=== PATIENT | male | born 1955 | race Caucasian/White ===

== ENCOUNTER 2018-01-10 14:00 | Inpatient (IN) ==
--- NOTE | 2018-01-10 15:12 | ED ---
HPI General Chief complaint: Psychiatric Symptoms Stated complaint: Psych Eval / VCSO Time Seen by Provider: 01/10/18 14:26 Source: patient, family and RN notes reviewed Mode of arrival: ambulatory Limitations: no limitations History of Present Illness HPI narrative: 62-year-old male presents to the emergency department under [place] act by local police. According the [place], the patient has been having delusional thoughts, talking to God. He also has apparently been refusing treatment for his swollen legs and not allowing his daughter to let him have care. He fell approximately 6 times yesterday and laid on the ground for approximately 2 hours until his daughter got home. According the [place] act, he defecated on the ground today as well. He also has been walking around the house without any pants or underwear on. The patient tells me he did fall approximately 5 times yesterday. He states that his knee gave out. He denies any dizziness, chest pain, shortness of breath before the falls. Patient states this is new for him. He is alert and oriented to person, place, time. He states that he prays to God, but is not delusional. Patient states that he went to his "heart doctor" yesterday and had a checkup. Patient states that he was on Lasix previously, but his daughter took him off of it he takes ibuprofen which "helps me more". He denies any fevers. He denies any chest pain shortness of breath. He states that his abdomen is distended, but not painful. He states this is new in the last few days. He reports chronic edema of the bilateral lower extremities. Moderate severity. Location: lower extremity Radiation: non-radiation Severity: moderate Quality: aching Pain Consistency: constant Relieving factors: none Exacerbating factors: none Related Data Previous Rx's Medication Instructions Recorded sulfamethoxazole-trimethoprim 2 tab PO Q12H 7 Days #28 tab 01/11/18 [Bactrim DS] Allergies Allergy/AdvReac Type Severity Reaction Status Date / Time Penicillins Allergy Anaphylaxis Verified 01/10/18 14:18 codeine AdvReac Vomiting Verified 01/10/18 14:18 Review of Systems ROS: all other systems reviewed are negative PMFSH Medical History Medical History Patient denies medical problems (Acute) Surgical History Surgical History No history of previous surgery (Acute) Social History Social History Substance History: No History of Abuse Second Hand Smoke Exposure: No Smoking Status: Never smoker Tobacco Type: Cigarettes How Often Do You Have a Drink Containing Alcohol: Never Recent Travel in [place] within the Last 8 Weeks: No Recent Out of Country Travel within the Last 8 Weeks: No Exam Narrative Exam Narrative: GENERAL: Well-nourished, well-developed male patient, afebrile. SKIN: Focused skin assessment warm/dry. Patient has erythema and scabs noted to the left lower extremity. HEAD: Normocephalic. Atraumatic. EYES: No scleral icterus. No injection or drainage. NECK: Supple, trachea midline. No JVD or lymphadenopathy. CARDIOVASCULAR: Regular rate and rhythm without murmurs, gallops, or rubs. Bilateral radial and pedal pulses 2+ RESPIRATORY: Breath sounds equal bilaterally. No accessory muscle use. Lung sounds are clear to auscultation. GASTROINTESTINAL: Abdomen non-tender, distended. MUSCULOSKELETAL: No cyanosis. 3+ bilateral lower, pitting edema. BACK: Nontender without obvious deformity. No CVA tenderness. PSYCHIATRIC: No delusional thought processes. No hallucinations. Course Initial Documented Vital Signs Temperature 97.0 F L 01/10/18 14:12 Pulse Rate 95 H 01/10/18 14:12 Respiratory Rate 18 01/10/18 14:12 Blood Pressure 177/84 H 01/10/18 14:12 Pulse Oximetry 98 01/10/18 14:12 Last Documented Vital Signs Temperature 98.8 F 01/10/18 15:08 Pulse Rate 88 01/10/18 20:01 Respiratory Rate 17 01/10/18 20:01 Blood Pressure 158/86 H 01/10/18 20:01 Pulse Oximetry 97 01/10/18 20:01 Medical Decision Making TRACE Attestation TRACE supervised visit: Yes Attestation: I, Dr. Valencia, have reviewed the advance practice practitioner's documentation and am in agreement, met with the patient face to face, made the diagnosis, and the medical decision making was done by me. *My assessment and Findings: Patient seen and examined by me in addition to Trixie Edge, examined by me in about 10:10 AM. The Burton act has been lifted patient has been discussed with Dr. Hoover. The patient is not a threat to himself or to others. He is alert and awake and oriented for me, I think he has the mental wherewithal to refuse treatment as he seems fit. He does have some weeping wounds of the lower extremities but no fluid collection. Think it is reasonable to put him on an ambulatory antibiotic. After discussion with the patient he is alert and awake and oriented, I have not witnessed any psychiatric symptoms myself. I have asked case management to get involved, DCF is already been contacted for this patient. I spoke with the daughter who is adamant that the patient is a threat to others, he is not taking care of himself is defecating in the room and is refusing to take all of his medications. Is very unclear to me if this is a psychiatric issue or a social issue. I had a discussion with Dr. Hoover, he is decided to keep the patient under [place] act and has asked me to spread his previous lift documentation. I think this is appropriate for this patient based on the daughter's history. The patient does have a cellulitis of bilateral lower extremities which I think to be treated with p.o. Bactrim. The patient will be admitted to medical psych under Dr. Hoover. Further medical management the patient's chronic cellulitis(greater than 4 months according to him) will be deferred to the medical team. MDM Narrative Medical decision making narrative: 62-year-old male presents to the emergency department under [place] act by local police. IV access obtained. CBC, CMP, TSH , magnesium, lipase, BNP, CK, alcohol level, urine drug screen, are ordered and pending. CT of the brain, cervical spine, abdomen/pelvis are ordered and pending. Chest x-ray is ordered and pending. Venous Doppler ultrasound of bilateral lower extremities is ordered and pending peer CBC shows no acute abnormality. CMP shows no acute abnormality. TSH is 5.820. Magnesium is 2.1. Lipase is 79. BNP is 609. CK is 159. Alcohol level is less than 3. UDS is pending. UA is negative for acute infection. Chest x-ray is negative. CT of the brain is negative. CT of the cervical spine shows moderate to severe degenerative changes are noted without evidence for acute fracture. CT abdomen/pelvis shows cirrhosis and portal hypertension, extensive atherosclerosis. US is negative for DVT. Patient states he has had cellulitis to lower extremity for 4 months and it is much improved. He will be started on Bactrim. He is medically cleared for psychiatric screening and disposition. Medical Screen Exam Complete: Yes Emergency Medical Condition: Yes Differential Diagnosis Differential Diagnosis: electrolyte abnormality vs. cellulitis vs. CHF vs. intracranial abnormality vs. dementia vs. psychiatric illness Lab Data Result diagrams: 01/10/18 14:30 01/10/18 14:30 Lab Results 01/10/18 01/10/18 01/10/18 Range/Units 14:30 14:30 14:30 WBC 5.7 (4.0-11.0) th/mm3 RBC 3.92 L (4.50-5.90) mil/mm3 Hgb 12.2 L (13.0-17.0) gm/dL Hct 38.4 L (39.0-51.0) % MCV 97.9 (80.0-100.0) fL MCH 31.2 (27.0-34.0) pg MCHC 31.9 L (32.0-36.0) % RDW 22.3 H (11.6-17.2) % Plt Count 170 (150-450) th/mm3 MPV 8.2 (7.0-11.0) fL Neut % (Auto) 71.9 H (16.0-70.0) % Lymph % (Auto) 15.6 (9.0-44.0) % [place] % (Auto) 8.4 H (0.0-8.0) % Eos % (Auto) 3.0 (0.0-4.0) % Baso % (Auto) 1.1 (0.0-2.0) % Neut # (Auto) 4.1 (1.8-7.7) th/mm3 Lymph # (Auto) 0.9 L (1.0-4.8) th/mm3 [place] # (Auto) 0.5 (0.0-0.9) th/mm3 Eos # (Auto) 0.2 (0.0-0.4) th/mm3 Baso # (Auto) 0.1 (0.0-0.2) th/mm3 WBC Differential . Differential Comment Auto diff final PT (9.8-11.6) sec INR Ratio APTT (24.3-30.1) sec Sodium 139 (136-145) meq/L Potassium 3.9 (3.5-5.1) meq/L Chloride 105 (98-107) meq/L Carbon Dioxide 23.5 (21.0-32.0) meq/L Anion Gap 11 (5-15) meq/L BUN 23 H (7-18) mg/dL Creatinine 1.13 (0.60-1.30) mg/dL Estimated GFR 65 L (>89) mL/min Random Glucose 124 H (74-106) mg/dL Calcium 8.3 L (8.5-10.1) mg/dL Magnesium 2.1 (1.5-2.5) mg/dL Total Bilirubin 0.6 (0.2-1.0) mg/dL AST 23 (15-37) U/L ALT 23 (12-78) U/L Alkaline Phosphatase 137 H (45-117) U/L Total Creatine Kinase 159 (39-308) U/L B-Natriuretic Peptide 609 H (0-100) pg/mL Total Protein 8.8 H (6.4-8.2) g/dL Albumin 2.6 L (3.4-5.0) g/dL Lipase 79 (73-393) U/L TSH 5.820 H (0.358-3.740) uIU/mL Urine Color (Yellw/Straw) Urine Clarity (Clear) Urine pH (5.0-8.5) Ur Specific [place] (1.002-1.035) Urine Protein (Neg-Trace) mg/dL Urine Glucose (UA) (Negative) mg/dL Urine Ketones (Negative) mg/dL Urine Occult Blood (Negative) Urine Nitrate (Negative) Urine Bilirubin (Negative) Urine Urobilinogen (Less than 2) mg/dL Ur Leukocyte Esterase (Negative) Urine RBC (0-3) /hpf Urine WBC (0-5) /hpf Ur Squamous Epith Cells (0-5) /hpf Hyaline Casts (0-3) /lpf Urine Mucus (Occasional) /lpf Micro UA Comment Ur Microscopic Review Urine Culture Comments Urine Opiates Screen (Neg) Ur Barbiturates Screen (Neg) Ur Amphetamines Screen (Neg) U Benzodiazepines Scrn (Neg) Urine Cocaine Screen (Neg) U Cannabinoids Screen (Neg) Serum Alcohol Less than 3 (0-5) mg/dL 01/10/18 01/10/18 01/10/18 Range/Units 14:30 18:19 18:19 WBC (4.0-11.0) th/mm3 RBC (4.50-5.90) mil/mm3 Hgb (13.0-17.0) gm/dL Hct (39.0-51.0) % MCV (80.0-100.0) fL MCH (27.0-34.0) pg MCHC (32.0-36.0) % RDW (11.6-17.2) % Plt Count (150-450) th/mm3 MPV (7.0-11.0) fL Neut % (Auto) (16.0-70.0) % Lymph % (Auto) (9.0-44.0) % [place] % (Auto) (0.0-8.0) % Eos % (Auto) (0.0-4.0) % Baso % (Auto) (0.0-2.0) % Neut # (Auto) (1.8-7.7) th/mm3 Lymph # (Auto) (1.0-4.8) th/mm3 [place] # (Auto) (0.0-0.9) th/mm3 Eos # (Auto) (0.0-0.4) th/mm3 Baso # (Auto) (0.0-0.2) th/mm3 WBC Differential Differential Comment PT 11.4 (9.8-11.6) sec INR 1.1 Ratio APTT 28.7 (24.3-30.1) sec Sodium (136-145) meq/L Potassium (3.5-5.1) meq/L Chloride (98-107) meq/L Carbon Dioxide (21.0-32.0) meq/L Anion Gap (5-15) meq/L BUN (7-18) mg/dL Creatinine (0.60-1.30) mg/dL Estimated GFR (>89) mL/min Random Glucose (74-106) mg/dL Calcium (8.5-10.1) mg/dL Magnesium (1.5-2.5) mg/dL Total Bilirubin (0.2-1.0) mg/dL AST (15-37) U/L ALT (12-78) U/L Alkaline Phosphatase (45-117) U/L Total Creatine Kinase (39-308) U/L B-Natriuretic Peptide (0-100) pg/mL Total Protein (6.4-8.2) g/dL Albumin (3.4-5.0) g/dL Lipase (73-393) U/L TSH (0.358-3.740) uIU/mL Urine Color Yellow (Yellw/Straw) Urine Clarity Hazy H (Clear) Urine pH 5.0 (5.0-8.5) Ur Specific [place] 1.017 (1.002-1.035) Urine Protein 30 H (Neg-Trace) mg/dL Urine Glucose (UA) Negative (Negative) mg/dL Urine Ketones Trace H (Negative) mg/dL Urine Occult Blood Negative (Negative) Urine Nitrate Negative (Negative) Urine Bilirubin Negative (Negative) Urine Urobilinogen Less than 2 (Less than 2) mg/dL Ur Leukocyte Esterase Negative (Negative) Urine RBC Less than 1 (0-3) /hpf Urine WBC 2 (0-5) /hpf Ur Squamous Epith Cells 1 (0-5) /hpf Hyaline Casts 28 (0-3) /lpf Urine Mucus Few H (Occasional) /lpf Micro UA Comment Culture not ind Ur Microscopic Review Not Reportable Urine Culture Comments Culture not ind Urine Opiates Screen Neg (Neg) Ur Barbiturates Screen Neg (Neg) Ur Amphetamines Screen Neg (Neg) U Benzodiazepines Scrn Neg (Neg) Urine Cocaine Screen Neg (Neg) U Cannabinoids Screen Neg (Neg) Serum Alcohol (0-5) mg/dL Imaging Data Radiologist's impression: Cervical Spine CT 01/10/18 14:27 CONCLUSION: 1. Moderate to severe degenerative changes are noted without evidence for acute fracture. Head CT 01/10/18 14:27 CONCLUSION: 1. Negative CT Head non contrast. . Abdomen/Pelvis CT 01/10/18 14:55 CONCLUSION: 1. Cirrhosis and portal hypertension. 2. Extensive atherosclerosis. Chest X-Ray 01/10/18 14:55 CONCLUSION: Negative examination. Venous Doppler Study 01/10/18 15:13 CONCLUSION: 1. The study is negative for bilateral lower extremity deep venous thrombosis. Discharge Plan Discharge Disposition Patient Disposition: 30 Still Patient Discharge Details Diagnosis: Medical clearance for psychiatric admission, Cellulitis Physicians Team ED Provider: Mason Valencia ED Midlevel Provider: Trixie Edge Primary Care Provider: UNKNOWN, Rxs /Orders / Referrals /Forms Prescriptions: New sulfamethoxazole-trimethoprim [Bactrim DS] 800-160 mg tablet 2 tab PO Q12H 7 Days Qty: 28 RF: 0 Discharge Interventions Interventions: Discharge Planning - Case Management Last Done: 01/10/18 16:10 Status ED Status: Admitted Patient
[2018-01-10 15:18] LABS: Baso # (Auto) 0.1 th/mm3 (0.0-0.2); Baso % (Auto) 1.1 % (0.0-2.0); Eos # (Auto) 0.2 th/mm3 (0.0-0.4); Hematocrit 38.4 % (39.0-51.0); Hemoglobin 12.2 gm/dL (13.0-17.0); Lymph # (Auto) 0.9 th/mm3 (1.0-4.8); Lymph % (Auto) 15.6 % (9.0-44.0); Mean Corpuscular HGB Conc 31.9 % (32.0-36.0); Mean Corpuscular Hemoglobin 31.2 pg (27.0-34.0); Mean Corpuscular Volume 97.9 fL (80.0-100.0); Mean Platelet Volume 8.2 fL (7.0-11.0); Mono # (Auto) 0.5 th/mm3 (0.0-0.9); Mono % (Auto) 8.4 % (0.0-8.0); Neut # (Auto) 4.1 th/mm3 (1.8-7.7); Neut % (Auto) 71.9 % (16.0-70.0); Platelet Count 170 th/mm3 (150-450); Red Blood Count 3.92 mil/mm3 (4.50-5.90); Red Cell Distribution Width 22.3 % (11.6-17.2); White Blood Count 5.7 th/mm3 (4.0-11.0)
[2018-01-10 15:28] LABS: Activated Partial Thrombo Time 28.7 sec (24.3-30.1); INR 1.1 Ratio; Prothrombin Time 11.4 sec (9.8-11.6)
--- NOTE | 2018-01-10 15:33 | XR ---
EXAM DATE: 01/10/2018 3:14 PM EDT AGE/SEX: 62 years / Male INDICATIONS: Altered mental status with bilateral leg swelling. CLINICAL DATA: This is the patient's initial encounter. Patient reports that signs and symptoms have been present for 2 days and indicates a pain score of 0/10. MEDICAL/SURGICAL HISTORY: None. None. COMPARISON: No prior exams available for comparison. FINDINGS: A single AP view of the chest demonstrates the lungs to be symmetrically aerated without evidence of mass, infiltrate or effusion. The cardiomediastinal contours are unremarkable. Osseous structures a re intact. CONCLUSION: Negative examination. Electronically signed by: Chandu Medina MD 01/10/2018 3:32 PM EDT
[2018-01-10 15:40] LABS: Alanine Aminotransferase 23 U/L (12-78); Albumin 2.6 g/dL (3.4-5.0); Anion Gap 11 meq/L (5-15); Aspartate Aminotransferase 23 U/L (15-37); Blood Urea Nitrogen 23 mg/dL (7-18); Calcium 8.3 mg/dL (8.5-10.1); Carbon Dioxide 23.5 meq/L (21.0-32.0); Chloride 105 meq/L (98-107); Glomerular Filtration Rate 65 mL/min (>89); Glucose,Random 124 mg/dL (74-106); Lipase 79 U/L (73-393); Magnesium 2.1 mg/dL (1.5-2.5); Potassium 3.9 meq/L (3.5-5.1); Sodium 139 meq/L (136-145)
[2018-01-10 15:49] LABS: Alkaline Phosphatase 137 U/L (45-117); Creatine Kinase 159 U/L (39-308); Total Protein 8.8 g/dL (6.4-8.2)
--- NOTE | 2018-01-10 15:54 | CT ---
EXAM DATE: 01/10/2018 3:49 PM EDT AGE/SEX: 62 years / Male INDICATIONS: Trauma; fall. CLINICAL DATA: This is the patient's initial encounter. Patient reports that signs and symptoms have been present for 1 day and indicates a pain score of Nonresponsive. MEDICAL/SURGICAL HISTORY: Non-responsive. Non-responsive. RADIATION DOSE: 15.43 CTDI (mGy) COMPARISON: No prior exams available for comparison. TECHNIQUE: Contiguous axial images were obtained using helical multirow detector technique. The vol umetric data was post-processed with multiplanar reconstruction in oblique axial, sagittal, and coron al planes. Using automated exposure control and adjustment of the mA and/or kV according to patient s ize, radiation dose was kept as low as reasonably achievable to obtain optimal diagnostic quality hank ges. DICOM format image data is available electronically for review and comparison. FINDINGS: The odontoid process is intact. There is uncovertebral hypertrophy at C5-6 and C6-7 with severe disc space narrowing, endplate sclerosis and osteophytosis at these levels. There are no compression defor mities. Vertebral artery and carotid artery calcifications are noted. A moderate central disc protrus ion at C3-4 is noted with mild canal narrowing. C4-5-1 broad-based central disc protrusion is seen wi th mild canal narrowing. At C5-6-1 diffuse disc osteophyte complex is noted with moderate to severe c anal stenosis. There is severe bilateral foraminal narrowing secondary to uncovertebral hypertrophy, and I believe there is mass effect on the cord. At C6-7 there is severe bilateral foraminal stenosis. CONCLUSION: 1. Moderate to severe degenerative changes are noted without evidence for acute fracture. Electronically signed by: Chandu Medina MD 01/10/2018 3:53 PM EDT
--- NOTE | 2018-01-10 15:56 | CT ---
EXAM DATE: 01/10/2018 3:45 PM EDT AGE/SEX: 62 years / Male INDICATIONS: Trauma; fall. CLINICAL DATA: This is the patient's initial encounter. Patient reports that signs and symptoms have been present for 1 day and indicates a pain score of Nonresponsive. MEDICAL/SURGICAL HISTORY: Non-responsive. Non-responsive. RADIATION DOSE: 56.35 CTDI (mGy) COMPARISON: No prior exams available for comparison. TECHNIQUE: CT of the head without contrast. Using automated exposure control and adjustment of the mA and/or kV according to patient size, radiation dose was kept as low as reasonably achievable to ob tain optimal diagnostic quality images. DICOM format image data is available electronically for revi ew and comparison. FINDINGS: Cerebrum: The ventricles are normal for age. No evidence of midline shift, mass lesion, hemorrhage or acute infarction. No extraaxial fluid collections are seen. Posterior Fossa: The cerebellum and brainstem are intact. The 4th ventricle is midline. The cerebe llopontine angle is unremarkable. Extracranial: The visualized portion of the orbits is intact. Skull: The calvaria is intact. No evidence of skull fracture. CONCLUSION: 1. Negative CT Head non contrast. . Electronically signed by: Chandu Medina MD 01/10/2018 3:55 PM EDT
--- NOTE | 2018-01-10 15:56 | CT ---
EXAM DATE: 01/10/2018 3:47 PM EDT AGE/SEX: 62 years / Male INDICATIONS: Trauma; fall. CLINICAL DATA: This is the patient's initial encounter. Patient reports that signs and symptoms have been present for 1 day and indicates a pain score of Nonresponsive. MEDICAL/SURGICAL HISTORY: Non-responsive. Non-responsive. RADIATION DOSE: 9.43 CTDI (mGy) COMPARISON: No prior exams available for comparison. TECHNIQUE: Multiple contiguous axial images were obtained through the abdomen. Images were obtained using multiple row detector helical technique. Using automated exposure control and adjustment of the mA and/or kV according to patient size, radiation dose was kept as low as reasonably achievable to o btain optimal diagnostic quality images. DICOM format image data is available electronically for rev iew and comparison. FINDINGS: No pleural effusions are seen. There is a large amount of ascites throughout the abdomen and pelvis. There is diffuse body wall edema. Extensive atherosclerotic calcifications are seen. Urinary bladder is unremarkable. No evidence for bowel obstruction. There is no adenopathy. Kidneys, adrenals, spleen , pancreas, stomach unremarkable. Cirrhotic liver is noted with nodular contour, and cholelithiasis i s present. There is no aneurysm. Lung bases are clear. Degenerative changes of the spine are noted. CONCLUSION: 1. Cirrhosis and portal hypertension. 2. Extensive atherosclerosis. Electronically signed by: Chandu Medina MD 01/10/2018 3:54 PM EDT
--- NOTE | 2018-01-10 16:55 | US ---
EXAM DATE: 01/10/2018 4:52 PM EDT AGE/SEX: 62 years / Male INDICATIONS: Bilateral leg swelling. CLINICAL DATA: This is the patient's initial encounter. Patient reports that signs and symptoms have been present for 1 day and indicates a pain score of 0/10. MEDICAL/SURGICAL HISTORY: . Bilateral leg edema. None. COMPARISON: No prior exams available for comparison. TECHNIQUE: Venous ultrasound of both lower extremities was performed from the inguinal ligament to t he proximal calf. Real-time, color Doppler and spectral tracing, compression and augmentation techni ques were used. FINDINGS: Right Leg: Normal compression of the deep venous system from the inguinal region to the proximal nafisa f. No echogenic clot is seen. Normal response of the venous system to augmentation and respiration. Left Leg: Normal compression of the deep venous system from the inguinal region to the proximal calf . No echogenic clot is seen. Normal response of the venous system to augmentation and respiration. Other: None. CONCLUSION: 1. The study is negative for bilateral lower extremity deep venous thrombosis. Electronically signed by: Chandu Medina MD 01/10/2018 4:53 PM EDT
[2018-01-10 18:54] LABS: Bilirubin,Urine Negative (Negative); Clarity,Urine Hazy (Clear); Color,Urine Yellow (Yellw/Straw); Glucose,Urine (UA) Negative (Negative); Hyaline Casts,Urine 28 /lpf (0-3); Leukocyte Esterase,Urine Negative (Negative); Mucus,Urine Few /lpf (Occasional); Nitrite,Urine Negative (Negative); Specific Gravity,Urine 1.017 (1.002-1.035); Squamous Epithelial Cell,Urine 1 /hpf (0-5)
[2018-01-10 18:56] LABS: Amphetamine Screen,Urine Neg (Neg); Barbiturate Screen,Urine Neg (Neg); Cannabinoid Screen,Urine Neg (Neg); Cocaine Screen,Urine Neg (Neg)
[2018-01-10 19:00] LABS: Opiate Screen,Urine Neg (Neg)
[2018-01-10] MEDS ORDERED: Ibuprofen 400 MG Tablet PO ONE (20:20)
[2018-01-11] MEDS ORDERED: Ibuprofen 400 MG Tablet PO ONE ×2 (08:59→20:15)
[2018-01-11] MEDS ORDERED: Aluminum/Magnesium/Simethacone Susp 30 ML UDC PO PRN (11:45)
[2018-01-11] MEDS ORDERED: Bisacodyl 10 MG Supp RECTAL PRN (11:45)
--- NOTE | 2018-01-11 12:01 | P.HPPSY ---
Provisional Diagnosis Admission Date: January 10, 2018 14:00 [place] I.: Unspecified psychosis, dementia Competence Certification of Person's Competence To Provide Express and Informed Consent I have personally examined Salas Richard, a person being served at [facility] on, January 11, 2018 1147. Express and informed consent means consent voluntarily given in writing, by a competent person, after sufficient explanation and disclosure of the subject matter involved to enable the person to make a knowing and willful decision without any element of force, fraud, deceit, duress, or other form of constraint or coercion. This person is 18 years of age or older, is not now known to be incompetent to consent to treatment with a guardian advocate, and does not have a health care surrogate or proxy currently making medical treatment decisions. I have found this person to be one of the following: [] Competent to provide express and informed consent, as defined above, for voluntary admission to this facility and is competent to provide express and informed consent for treatment. He/she has the consistent capacity to make well reasoned, willful, and knowing decisions concerning his or her medical or mental health treatment. The person fully and consistently understands the purpose of the admission for examination/placement and is fully capable of personally exercising all rights [place] Incompetent to provide express and informed consent to voluntary admission, and this is incompetent to provide express and informed consent to treatment. The person must be transferred to involuntary status and a petition for a guardian advocate filed with the Circuit Court. [x] Refusing to provide express and informed consent to voluntary admission but is competent to provide express and informed consent for treatment. The person must be discharged or transferred to involuntary status. Form shall be completed within 24 hours of a person's arrival at the receiving facility and filed in the clinical record of each person: 1. Admitted on a voluntary basis 2. Permitted to provide express and informed consent to his/her own treatment 3. Allowed to transfer from involuntary to voluntary status 4. Prior to permitting a person to consent to his or her own treatment after having been previously found incompetent to consent to treatment. 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 According the [place], the patient has been having delusional thoughts, talking to God. He also has apparently been refusing treatment for his swollen legs and not allowing his daughter to let him have care. He fell approximately 6 times yesterday and laid on the ground for approximately 2 hours until his daughter got home. According the [place] act, he defecated on the ground today as well. He also has been walking around the house without any pants or underwear on. He has a very extensive initial ER medical clearance, most of findings are quite normal with the exception of lower extremity cellulitis. He has a brain and spine CT with Moderate to severe degenerative changes are noted without evidence for acute fracture. Negative CT Head non contrast. Abdomen/Pelvis CT 01/10/18 14:55. Cirrhosis and portal hypertension. Extensive atherosclerosis. Chart was reviewed. The case was widely discussed with ER staff. On my psychiatric evaluation I find a patient that is calm, cooperative, but extremely malodorous and disheveled.. The patient reports that he feels quite well, he denies pain, denies distress, he reports good mood, and states that the only reason he is here is because his daughter interrupted in his house, "she thinks that she can take decisions for me", and placing on the [place] act for delusional thinking and self neglecting behavior. The patient reports that he has never seen a psychiatrist in his life. He was a coppersmith helper in the state of [place] and never had any problem with anybody. He denies symptomatology of depression, denies anhedonia, denies hopelessness, denies helplessness, he denies suicidal and homicidal ideation, he denies visual and auditory hallucinations at the moment. The patient is fully oriented 3, logical, coherent, relevant. During my evaluation I could not elicit any delusional thinking, no paranoia, no loosening of associations, no ideas of reference. However, in a conversation with his daughter and ER doctor, she says that the patient has been making irrational comments of people around his house and also homicidal statements of killing people around him with his legal guns. PPHx: The patient denies previous psychiatric history, suicidal attempts, hospital PMHx: He denies medical history Substance Hx: The patient denies the use of illegal drugs and alcohol Family Hx: Patient denies history of family psychiatric history Social Hx: The patient was born and raised in [place], he lives alone in the very, he is , he used to be a coppersmith helper in [place], his highest level of education is high school, he has 2 kids Review of Systems All other systems reviewed negative except as stated in [facility] - History History Provided By: Patient - Medical History Medical History: Medical History (Last Updated 01/10/18 @ 14:16 by Rebecca Phillips) Patient denies medical problems - Surgical History Surgical History: Surgical History (Last Updated 01/10/18 @ 14:16 by Rebecca Phillips) No history of previous surgery - Tobacco History Second Hand Smoke Exposure: No Tobacco Use In Past 30 Days: No Smoking Status: Never smoker Tobacco Type: Cigarettes - Alcohol History How Often Do You Have a Drink Containing Alcohol: Never - Substance Use History Substance History: No History of Abuse - Travel History Recent Travel in the [facility] Within the Last 8 Weeks: No Recent Travel Out of the Country Within the Last 8 Weeks: No - Immunization History Tetanus Immunization: Unsure Hx Influenza Vaccine This Season: Unable to Assess Medications and Allergies Active Medications: Active Medications Al Hydrox/Mg Hydrox/Simethicone (Mag-Al Plus Susp Liq) 30 ml PO Q6H PRN PRN Reason: DYSPEPSIA Al Hydroxide/Mg Hydroxide (Milk Of Magnesia Liq) 30 ml PO Q12H PRN PRN Reason: Mild Constipation Bisacodyl (Dulcolax Supp) 10 mg RECTAL DAILY PRN PRN Reason: SEVERE CONSITIPATION Lactulose (Lactulose Liq) 30 ml PO DAILY PRN PRN Reason: SEVERE CONSITIPATION Senna/Docusate Sodium (Sakina-Colace) 1 tab PO BID MAXWELL Sennosides (Senokot) 17.2 mg PO Q12H PRN PRN Reason: Moderate Constipation Allergies Allergy/AdvReac Type Severity Reaction Status Date / Time Penicillins Allergy Anaphylaxis Verified 01/10/18 14:18 codeine AdvReac Vomiting Verified 01/10/18 14:18 Results - Labs CBC & Chem 7: 01/10/18 14:30 01/10/18 14:30 Labs: Laboratory Results - last 24 hr 01/10/18 01/10/18 01/10/18 14:30 14:30 14:30 WBC 5.7 RBC 3.92 L Hgb 12.2 L Hct 38.4 L MCV 97.9 MCH 31.2 MCHC 31.9 L RDW 22.3 H Plt Count 170 MPV 8.2 Neut % (Auto) 71.9 H Lymph % (Auto) 15.6 [place] % (Auto) 8.4 H Eos % (Auto) 3.0 Baso % (Auto) 1.1 Neut # (Auto) 4.1 Lymph # (Auto) 0.9 L [place] # (Auto) 0.5 Eos # (Auto) 0.2 Baso # (Auto) 0.1 WBC Differential . Differential Comment Auto diff final PT INR APTT Sodium 139 Potassium 3.9 Chloride 105 Carbon Dioxide 23.5 Anion Gap 11 BUN 23 H Creatinine 1.13 Estimated GFR 65 L Random Glucose 124 H Calcium 8.3 L Magnesium 2.1 Total Bilirubin 0.6 AST 23 ALT 23 Alkaline Phosphatase 137 H Total Creatine Kinase 159 B-Natriuretic Peptide 609 H Total Protein 8.8 H Albumin 2.6 L Lipase 79 TSH 5.820 H Urine Color Urine Clarity Urine pH Ur Specific [place] Urine Protein Urine Glucose (UA) Urine Ketones Urine Occult Blood Urine Nitrate Urine Bilirubin Urine Urobilinogen Ur Leukocyte Esterase Urine RBC Urine WBC Ur Squamous Epith Cells Hyaline Casts Urine Mucus Micro UA Comment Ur Microscopic Review Urine Culture Comments Urine Opiates Screen Ur Barbiturates Screen Ur Amphetamines Screen U Benzodiazepines Scrn Urine Cocaine Screen U Cannabinoids Screen Serum Alcohol Less than 3 01/10/18 01/10/18 01/10/18 14:30 18:19 18:19 WBC RBC Hgb Hct MCV MCH MCHC RDW Plt Count MPV Neut % (Auto) Lymph % (Auto) [place] % (Auto) Eos % (Auto) Baso % (Auto) Neut # (Auto) Lymph # (Auto) [place] # (Auto) Eos # (Auto) Baso # (Auto) WBC Differential Differential Comment PT 11.4 INR 1.1 APTT 28.7 Sodium Potassium Chloride Carbon Dioxide Anion Gap BUN Creatinine Estimated GFR Random Glucose Calcium Magnesium Total Bilirubin AST ALT Alkaline Phosphatase Total Creatine Kinase B-Natriuretic Peptide Total Protein Albumin Lipase TSH Urine Color Yellow Urine Clarity Hazy H Urine pH 5.0 Ur Specific [place] 1.017 Urine Protein 30 H Urine Glucose (UA) Negative Urine Ketones Trace H Urine Occult Blood Negative Urine Nitrate Negative Urine Bilirubin Negative Urine Urobilinogen Less than 2 Ur Leukocyte Esterase Negative Urine RBC Less than 1 Urine WBC 2 Ur Squamous Epith Cells 1 Hyaline Casts 28 Urine Mucus Few H Micro UA Comment Culture not ind Ur Microscopic Review Not Reportable Urine Culture Comments Culture not ind Urine Opiates Screen Neg Ur Barbiturates Screen Neg Ur Amphetamines Screen Neg U Benzodiazepines Scrn Neg Urine Cocaine Screen Neg U Cannabinoids Screen Neg Serum Alcohol - Imaging Impressions Cervical Spine CT 01/10/18 14:27 CONCLUSION: 1. Moderate to severe degenerative changes are noted without evidence for acute fracture. Head CT 01/10/18 14:27 CONCLUSION: 1. Negative CT Head non contrast. . Abdomen/Pelvis CT 01/10/18 14:55 CONCLUSION: 1. Cirrhosis and portal hypertension. 2. Extensive atherosclerosis. Chest X-Ray 01/10/18 14:55 CONCLUSION: Negative examination. Venous Doppler Study 01/10/18 15:13 CONCLUSION: 1. The study is negative for bilateral lower extremity deep venous thrombosis. Exam Vital signs: Vital Signs 01/10/18 14:12 01/10/18 15:08 01/10/18 17:00 Temperature 97.0 F L 98.8 F Pulse Rate 95 H 85 88 Respiratory Rate 18 18 18 Blood Pressure 177/84 H 197/93 H 169/98 H Pulse Oximetry 98 99 99 01/10/18 20:01 Temperature Pulse Rate 88 Respiratory Rate 17 Blood Pressure 158/86 H Pulse Oximetry 97 Intake & Output 01/10/18 01/11/18 01/11/18 18:59 06:59 18:59 Weight 92.533 kg Narrative: No tremors, no EPS, no psychomotor agitation retardation, no gait disturbance, n no catatonia Mental Status Examination Appearance: Disheveled, Malodorous Consciousness: Alert Orientation: x4 Motor Activity: Normal gait Speech: Unremarkable Language: Adequate Fund of Knowledge: Adequate Attention and Concentration: Adequate Memory: Unremarkable Mood: Appropriate Affect: Appropriate Thought Process & Associations: Intact Thought Content: Appropriate Hallucination Type: None Delusion Type: None Suicidal Ideation: No Suicidal Plan: No Suicidal Intention: No Homicidal Ideation: No Homicidal Plan: No Homicidal Intention: No Insight: Adequate Judgment: Adequate Assessment and Plan - Assessment (1) Unspecified psychosis Code(s): F29 - Unspecified psychosis not due to a substance or known physiological condition Status: Acute - Plan Plan: Estimated LOS: [] days On my psychiatric evaluation today I find a patient that is very malodorous, disheveled, with clear evidence of self neglecting behavior, however he is calm , cooperative, and denies symptomatology of depression, anxiety, bettye and psychosis. He denies suicidal and homicidal ideation, he denies visual and auditory hallucinations. The patient in my evaluation presents logical, coherent and relevant. Oriented 3. However, is his daughter who claims that the patient has been acting erratically, religiously preoccupied, paranoid thinking that people around his house is trying to kill him. This patient does not have any previous psychiatric history, the pre-suicidal attempts, no previous psychiatric hospitalizations, he does not even have a prominent medical history. Initially I thought that the patient could be delirious due to underlying medical conditions, but in an initial medical investigation in the ER there is no evidence of underlying acute medical problems other than lower extremity cellulitis that could be treated in outpatient basis. Given the psychosis described by his daughter, I am going to admit the patient in psychiatry for longitudinal observation of mood and behavior. I am not starting any psychotropic at this moment until psychiatric symptoms could be identified or elicited in the psychiatric unit. I would continue medication for cellulitis prescribed by ER doctor. Extensive psychoeducation, supportive motivation provided. pipe assembly worker intervention for collateral information, psychosocial assessment, to coordinate safe discharge of this patient. Justification for Continued Inpatient Stay: Patient will be admitted in psychiatry.
[2018-01-11] MEDS: Senna/Docusate Sodium 8.6/50 MG Tablet PO SCH (20:50)
[2018-01-12 08:04] LABS: Anion Gap 11 meq/L (5-15); Blood Urea Nitrogen 21 mg/dL (7-18); Carbon Dioxide 26.4 meq/L (21.0-32.0); Chloride 106 meq/L (98-107); Cholesterol 103 mg/dL (120-200); Glomerular Filtration Rate Greater Than 89 mL/min (>89); Glucose,Random 118 mg/dL (74-106); Potassium 3.4 meq/L (3.5-5.1); Sodium 143 meq/L (136-145)
[2018-01-12 08:08] LABS: Chol/HDL Ratio 3.03 Ratio; HDL Cholesterol 33.9 mg/dL (40.0-60.0); LDL Cholesterol,Calculated 51 mg/dL (0-99); Triglycerides 90 mg/dL (42-150)
[2018-01-12] MEDS: Senna/Docusate Sodium 8.6/50 MG Tablet PO SCH ×2 (08:50→20:19)
--- NOTE | 2018-01-12 09:21 | P.TTN ---
- Patient Problems Problems: 1. Discharge planning 2. Medication compliance 3. Knowledge deficit 4. Lack of coping skills - Progress Toward Goals Provider Present: Dr. Suad Saavedra Provider Input: Dr. Saavedra to review notes and meet with patient. Psychiatric Counselors Present: Sandra Cotton LCSW, Na Yeager, [facility] Psychiatric Therapist Input: 01/12/18: Pt has not been assessed by counselor as yet. Group Spec/RT/OT/CHUNG Present: Richie Mccall OT Group Spec/RT/OT/CHUNG Input: New pt; no hx as yet. - Documentation Scribe: Richie Mccall, MS, OTR Teaching Recipient: Patient
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
[2018-01-12 16:24] LABS: Hemoglobin A1c 6.4 % (4.3-6.0)
[2018-01-12] MEDS ORDERED: LORazepam 0.5 MG Tablet PO PRN (16:47)
--- NOTE | 2018-01-12 18:42 | P.CONIM ---
History of Present Illness Service: [facility] Consult date: 01/12/18 Reason for Consult: BILATERAL LEG EDEMA Primary Care Provider: UNKNOWN Chief Complaint: swelling leg, weeping History of Present Illness: This is a 62 years old male with who denies any past medical history other than the lower leg edema and chronic wound, stated had "fungal infection from the war in [place]", and cataract. Patient denies any heart problems denies any diabetes denies any lung disease denies any liver disease or GI problems. Patient denies any smoking or alcohol intake. Patient presents to the emergency department under [place] act by local police. According the Burton, the patient has been having delusional thoughts, talking to God. He also has apparently been refusing treatment for his swollen legs and not allowing his daughter to let him have care. He fell approximately 6 times yesterday and laid on the ground for approximately 2 hours until his daughter got home. According the Burton act, he defecated on the ground today as well. He also has been walking around the house without any pants or underwear on. It was reported that he fell 5 times the day before admission to the emergency room. It was also reported that patient takes Lasix previously but his daughter took him off of it and just taken ibuprofen since then. He was also reported that the patient is delusional stating that he seen a heart doctor the day before he came to the hospital. Patient is admitted in the psychiatric unit for management and treatment. Medicine team is consulted for lower extremity edema and medical management. Patient seen and evaluated with Dr. Johnson and myself, patient sitting in the chair complains about leg weeping on the left side. Patient stated that he had this edema since 20 years ago and he has been seeing a doctor for this. Patient stated that the doctor was treating him for fungal infection and stated from the war in [place]. Patient denies any other health history, denies any heart problems or any cardiovascular disease, denies any liver or GI problems. Patient denies any smoking or alcohol intake. Patient denies any headache or dizziness, denies any chest pain or shortness of breath, denies any nausea or vomiting, denies any abdominal pain, constipation or diarrhea. Denies any fever or chills. Review of Systems All other systems reviewed negative except as stated in HPI [facility] - History History Provided By: Patient - Medical History Medical History: Medical History (Last Updated 01/12/18 @ 18:30 by MALLORIE Akers) Cataract Fungal infection Lower extremity edema Patient denies medical problems - Surgical History Surgical History: Surgical History (Last Reviewed 01/12/18 @ 18:30 by MALLORIE Akers) No history of previous surgery - Family History Family History: Family History (Last Updated 01/12/18 @ 18:30 by MALLORIE Akers) Other Family history unknown - Social History I have reviewed the patient's Social History: Yes - Tobacco History Second Hand Smoke Exposure: No Tobacco Use In Past 30 Days: No Smoking Status: Never smoker Tobacco Type: Cigarettes - Alcohol History How Often Do You Have a Drink Containing Alcohol: Never - Substance Use History Substance History: No History of Abuse - Travel History Recent Travel in the [place] Within the Last 8 Weeks: No Recent Travel Out of the Country Within the Last 8 Weeks: No - Immunization History Tetanus Immunization: >5 Years Hx Influenza Vaccine This Season: Yes Medications and Allergies Active Medications: Active Medications Al Hydrox/Mg Hydrox/Simethicone (Mag-Al Plus Susp Liq) 30 ml PO Q6H PRN PRN Reason: DYSPEPSIA Al Hydroxide/Mg Hydroxide (Milk Of Magnesia Liq) 30 ml PO Q12H PRN PRN Reason: Mild Constipation Bisacodyl (Dulcolax Supp) 10 mg RECTAL DAILY PRN PRN Reason: SEVERE CONSITIPATION Diphenhydramine HCl (Benadryl) 50 mg PO HS PRN PRN Reason: INSOMNIA Furosemide (Lasix) 40 mg PO DAILY MAXWELL Haloperidol Lactate (Haldol Inj) 2.5 mg IM BID PRN PRN Reason: SEE LABEL COMMENTS Cefazolin Sodium 1,000 mg/ (Sodium Chloride) 100 mls @ 200 mls/hr IV.SIG Q8H MAXWELL Lactulose (Lactulose Liq) 30 ml PO DAILY PRN PRN Reason: SEVERE CONSITIPATION Lorazepam (Ativan) 0.5 mg PO Q12HR PRN PRN Reason: ANXIETY Potassium Chloride (K-Dur) 20 meq PO DAILY MAXWELL Quetiapine Fumarate (Seroquel) 25 mg PO BID MAXWELL Senna/Docusate Sodium (Sakina-Colace) 1 tab PO BID MAXWELL Last Admin: 01/12/18 08:50 Dose: Not Given Sennosides (Senokot) 17.2 mg PO Q12H PRN PRN Reason: Moderate Constipation Allergies Allergy/AdvReac Type Severity Reaction Status Date / Time Penicillins Allergy Anaphylaxis Verified 01/10/18 14:18 codeine AdvReac Vomiting Verified 01/10/18 14:18 Exam Vital signs: Vital Signs 01/12/18 05:36 01/12/18 08:00 01/12/18 18:09 Temperature 99 F 98.0 F Pulse Rate 84 90 Respiratory Rate 17 17 18 Blood Pressure 128/61 171/81 H Pulse Oximetry 93 L 97 Intake & Output 01/11/18 01/12/18 01/12/18 18:59 06:59 18:59 Intake Total 1200 / 1200 Balance 1200 / 1200 Weight 86.3 kg 85.6 kg Intake: Oral 1200 / 1200 Other: # Voids 1 Date of Last Bowel Movement 01/12/18 # Bowel Movements 1 Weight On Admission 86.3 kg Narrative: GENERAL: Well-developed well-nourished male, alert and oriented x3, with no apparent distress SKIN: Warm and dry. Bilateral lower extremity edema 2+ with redness, left lower extremity with scaling of the skin and weeping edema HEAD: Atraumatic. Normocephalic. EYES: Pupils equal and round. No scleral icterus. No injection or drainage. ENT: No nasal bleeding or discharge. Mucous membranes pink and moist. NECK: Trachea midline. No JVD. CARDIOVASCULAR: Regular rate and rhythm. RESPIRATORY: No accessory muscle use. Clear to auscultation. Breath sounds equal bilaterally. GASTROINTESTINAL: Abdomen soft, non-tender, nondistended. Hepatic and splenic margins not palpable. MUSCULOSKELETAL: Extremities without clubbing, cyanosis, or edema. No obvious deformities. NEUROLOGICAL: Awake and alert. No obvious cranial nerve deficits. Motor grossly within normal limits. Five out of 5 muscle strength in the arms and legs. Normal speech. PSYCHIATRIC: Appropriate mood and affect; insight and judgment normal. Results - Labs CBC & Chem 7: 01/10/18 14:30 01/12/18 06:52 Labs: Laboratory Results - last 24 hr 01/12/18 01/12/18 06:52 06:52 Sodium 143 Potassium 3.4 L Chloride 106 Carbon Dioxide 26.4 Anion Gap 11 BUN 21 H Creatinine 0.82 Estimated GFR Greater than 89 Random Glucose 118 H Hemoglobin A1c 6.4 H Calcium 8.0 L Triglycerides 90 Cholesterol 103 L LDL Cholesterol, Calc 51 HDL Cholesterol 33.9 L Cholesterol/HDL Ratio 3.03 Assessment and Plan - Assessment (1) Bilateral edema of lower extremity Code(s): R60.0 - Localized edema Status: Acute (2) Cirrhosis Code(s): K74.60 - Unspecified cirrhosis of liver Status: Acute (3) Portal hypertension Code(s): K76.6 - Portal hypertension Status: Acute (4) Hypertension Code(s): I10 - Essential (primary) hypertension Status: Acute (5) Renal insufficiency, mild Code(s): N28.9 - Disorder of kidney and ureter, unspecified Status: Acute - Plan This is a 62 years old male with who denies any past medical history other than the lower leg edema and chronic wound, stated had "fungal infection from the war in [place]", and cataract. Patient denies any heart problems denies any diabetes denies any lung disease denies any liver disease or GI problems. Patient denies any smoking or alcohol intake. Patient presents to the emergency department under [place] act by local police, reported refusing treatment for the swollen legs, having delusional thoughts, talking to God, walking in the house without any underpants, fell 5 times before the admission. Patient is admitted in the psychiatric unit for management and treatment. Medicine team is consulted for lower extremity edema and medical management. Lower leg edema/lower leg redness /likely cellulitis Acute on chronic, redness likely due to edema -Venous Doppler negative for bilateral lower extremity deep venous thrombosis -Change antibiotic to Ancef IV, plan to change to p.o. in a couple of days. -DC Bactrim -Wound care consult for bilateral leg wound care management -Elevate lower extremities while in the chair or bed -Start on Lasix and potassium -Monitor BMP Cirrhosis /incidental finding on CT of the abdomen and pelvis -Check for hepatitis profile -Liver sonogram -Monitor LFT, check lipid panel Elevated TSH/likely subclinical -Check free T4 Hypertension Portal hypertension/incidental finding from CT of the abdomen and pelvis -Monitor blood pressure -Monitor for signs and symptoms Renal insufficiency/hypokalemia likely related to hypertension/metabolic in nature -Monitor BMP, hemoglobin A1c 6.4 -Avoid nephrotoxic -Replace potassium Status post fall at home -Cervical spine CT without evidence of fracture -Head CT negative -Chest x-ray negative DVT prophylaxis: Increase ambulation Code Status: Full code Discussed Condition With: Patient, nurse and Dr. Mcfadden
--- NOTE | 2018-01-12 20:12 | P.PNPSY ---
Subjective Remarks: Patient seen for follow, chart reviewed. Discussion with nursing staff reported the patient has been focused on discharge. As per chart patient was brought in by police as per [place] act delusional and talking to God refusing treatment denied lying down to care for him. Patient was found sitting hospital chair noted to be calm and cooperative. Patient states that he had fallen day of admission his daughter had called EMS and was brought in for evaluation he states that he had a bad fall for months ago, previously lived alone and moved in with his daughter for assistance. He reports having auditory hallucinations of God's voice which he states God talks back to him. Patient states his mood has been "just peachy", denies any depressive symptoms nor any paranoid ideation. He denies any prior psychiatric history. Patient states that his leg edema was from having exposed his leg to something during the [place] war. Collateral information from patient's daughter over the phone stated the patient recently was noted to be cleaning his gun and that God had spoken to him and stated that he will live a long life and no longer had thoughts of wanting to kill himself. He stated that her children were sold to the [employer], was noted to be disorganized at home defecating on the floor several times with multiple falls. 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 She expresses grave concern that the patient was convinced stating to her that he believed her daughter needed to be killed and that her would be physically violent against her. She states that patient has been delusional and not currently endorsing auditory hallucinations for some time but was really concerned when he started mentioning that her daughter needed to be killed as they were soul to the [employer]. She agrees to be patient's healthcare surrogate and guardian advocate during this admission. Review of Systems All other systems reviewed negative except as stated in HPI Mental Status Examination Appearance: Disheveled Consciousness: Alert Orientation: Person, Place Motor Activity: Abnormal gait Speech: Unremarkable Language: Other (Somewhat rambling) Fund of Knowledge: Adequate Attention and Concentration: Adequate Memory: Impaired (Suspected) Mood: Appropriate Affect: Appropriate Thought Process & Associations: Circumstantial Thought Content: Delusional Hallucination Type: Auditory Delusion Type: Bizarre, Paranoid, Other (Yarsani preoccupation) Suicidal Ideation: No Suicidal Plan: No Suicidal Intention: No Homicidal Ideation: No Homicidal Plan: No Homicidal Intention: No Insight: Poor Judgment: Poor Assessment and Plan - Assessment (1) Unspecified psychosis Code(s): F29 - Unspecified psychosis not due to a substance or known physiological condition Status: Acute - Plan Plan: Patient this time currently endorsing bizarre delusions religiously preoccupied and states he is speaking directly to God and God speaks back to him. Patient acutely psychotic, with poor insight and concern for self-care deficit this patient had been neglecting treatment and self-care at home. Patient's daughter will serve as patient's healthcare surrogate and guardian advocate during this admission. We will start patient on quetiapine 25 mg p.o. twice daily for psychosis, Haldol 2.5 mg IM twice daily if patient refuses p.o. meds. Hospitalist consult requested, input appreciated. We will continue recommendations as per prior medical team. We will continue to monitor mood and behavior. Petition for involuntary hospitalization started, second opinion requested. Discharge planning in progress. Justification for Continued Inpatient Stay: At risk of further decompensation a lower level of care.
[2018-01-12] MEDS: Furosemide 40 MG Tablet PO SCH (20:18)
[2018-01-12] MEDS: QUEtiapine 25 MG Tablet PO SCH (20:19)
[2018-01-12] MEDS ORDERED: Haloperidol Inj 5 MG/ML Ampul IM SCH (21:00)
[2018-01-12] MEDS ORDERED: Haloperidol Inj 5 MG/ML Ampul IM PRN (21:00)
[2018-01-12] MEDS ORDERED: Sulfamethoxazole/Trimethoprim 400/80 MG Tablet PO SCH (21:00)
[2018-01-13 07:33] LABS: Albumin 2.2 g/dL (3.4-5.0)
[2018-01-13 07:36] LABS: Free T4 (Free Thyroxine) 1.36 ng/dL (0.76-1.46); Total Protein 7.4 g/dL (6.4-8.2)
--- NOTE | 2018-01-13 09:09 | US ---
EXAM DATE: 01/13/2018 8:56 AM EDT AGE/SEX: 62 years / Male INDICATIONS: Cirrhosis. CLINICAL DATA: This is the patient's subsequent encounter. Patient reports that signs and symptoms h ave been present for 1 day and indicates a pain score of 8/10. MEDICAL/SURGICAL HISTORY: . Fungal infection. None. COMPARISON: [facility] – [place], CT ABDOMEN & PELVIS W/O CONTRAST, 01/10/2018. . MEASUREMENTS: Liver:__ 17. cm. Common Bile Duct:__ 8mm. Right Kidney:__ 12.5 x 5.8 x 5.9 cm. FINDINGS: Liver: Normal echotexture without focal lesion or ductal dilatation. Portal Vein: Hepatopedal flow seen in portal vein. Common Duct: Common bile duct is mildly dilated 8 mm. Gallbladder: No definite stones are demonstrated. There is thickening of the gallbladder wall measur ing approximately 6 mm.. Pancreas: The visualized portions are within normal limits Right Kidney: Normal echotexture and cortical thickness. No mass or hydronephrosis. Other: There is a small amount of abdominal ascites in the upper abdomen. CONCLUSION: 1. No definite gallstones in the gallbladder. There is diffuse thickening of the gallbladder wall at 6 mm. 2. Mild dilatation of the common bile duct at 8 mm. MRCP could be performed for further evaluation i f clinically indicated. 3. Small amount of abdominal ascites in the upper abdomen. Electronically signed by: Jose R Ulloa MD 01/13/2018 9:07 AM EDT
[2018-01-13 09:11] LABS: Hepatitis A IgM Antibody Nonreactive (Nonreactive)
[2018-01-13 09:12] LABS: Hepatitits B Surface Antigen Nonreactive (Nonreactive)
[2018-01-13] MEDS: QUEtiapine 25 MG Tablet PO SCH ×2 (09:30→20:43)
[2018-01-13] MEDS: Furosemide 40 MG Tablet PO SCH (09:30)
[2018-01-13] MEDS: Senna/Docusate Sodium 8.6/50 MG Tablet PO SCH ×2 (12:14→20:43)
--- NOTE | 2018-01-13 12:26 | P.PNWCN ---
Wound Care Nurse Consult Description: Wound consult ordered by for wound management. Communicated with: Aquiles STAHL, Recommendation: 1. Perform shaving cream therapy to bilateral lower extremities x3 day ( Apply thick layer of shaving cream to lower extremities/feet ,wrap in warm moist towel let sit for 5min wipes clean.) 2. Cleanse bilateral lower extremities with normal saline pat dry 3. Apply single layer of Xeroform cut to fit wound base to open weeping areas cover with ABD secure with rolled gauze /paper tape. 4. Follow up with out patient wound center upon discharge. Additional information: Patient was seen today by film writer and Michael nursing informatics analyst for wound management of bilateral lower extremities.Patient sitting up in chair in no acute distress.Call Center Agent was able to visualize bilateral lower extremities .patient noted to have +2 taught pitting edema.No weeping or open areas noted to RLE. Left lower extremity has diffuse dried exudate with scant serous exudate noted. Left lower extremity single layer of Xeroform applied to weeping areas and covered with ABD secured with rolled gauze /paper tape.Dressing signed and dated.
--- NOTE | 2018-01-13 13:26 | P.PN ---
Subjective Interval history: awake and alert afebrile- states having loose mushy stools " from the food here" does not like the food- "gives me diarrhea" states his legs better on antibitoics on lactulose Physical Exam Vital signs: Vital Signs 01/12/18 18:09 01/13/18 04:54 Temperature 98.0 F 97.4 F L Pulse Rate 90 89 Respiratory Rate 18 16 Blood Pressure 171/81 H 136/65 Pulse Oximetry 97 96 Intake & Output 01/12/18 01/13/18 01/13/18 18:59 06:59 18:59 Intake Total 1200 / 1200 800 / 800 240 / 240 Balance 1200 / 1200 800 / 800 240 / 240 Intake: IV 200 / 200 Ancef Inj 1,000 MG In NS Inj 200 / 200 100 ML @ 200 mls/hr IV.SIG Q8H MAXWELL Rx#:[id number] Oral 1200 / 1200 600 / 600 240 / 240 Other: # Voids 1 2 Date of Last Bowel Movement 01/12/18 01/12/18 # Bowel Movements 1 1 Narrative: awake and alert, interactive and cooerative anicteric no nuchal rigidity lungs- no rales regular rhythm abdomen soft , + ascites, not tense, + bowel sounds, nontender LE- + edema + erythema moves all extremiteis spontaenously Results - Labs CBC & Chem 7: 01/10/18 14:30 01/13/18 06:40 Laboratory Results - last 24 hr 01/12/18 01/13/18 01/13/18 06:52 06:40 06:40 Potassium Hemoglobin A1c 6.4 H Total Bilirubin 0.4 Direct Bilirubin 0.2 Indirect Bilirubin 0.2 AST 19 ALT 18 Alkaline Phosphatase 100 Total Protein 7.4 D Albumin 2.2 L Free T4 1.36 Hepatitis A IgM Ab Nonreactive Hep Bs Antigen Nonreactive Hep B Core IgM Ab Nonreactive Hep C IgG Ab Nonreactive 01/13/18 06:40 Potassium 3.4 L Hemoglobin A1c Total Bilirubin Direct Bilirubin Indirect Bilirubin AST ALT Alkaline Phosphatase Total Protein Albumin Free T4 Hepatitis A IgM Ab Hep Bs Antigen Hep B Core IgM Ab Hep C IgG Ab - Imaging Impressions Liver Ultrasound 01/13/18 00:00 CONCLUSION: 1. No definite gallstones in the gallbladder. There is diffuse thickening of the gallbladder wall at 6 mm. 2. Mild dilatation of the common bile duct at 8 mm. MRCP could be performed for further evaluation if clinically indicated. 3. Small amount of abdominal ascites in the upper abdomen. Assessment and Plan - Assessment (1) Bilateral edema of lower extremity Code(s): R60.0 - Localized edema Status: Acute (2) Cirrhosis Code(s): K74.60 - Unspecified cirrhosis of liver Status: Acute (3) Portal hypertension Code(s): K76.6 - Portal hypertension Status: Acute (4) Hypertension Code(s): I10 - Essential (primary) hypertension Status: Acute (5) Renal insufficiency, mild Code(s): N28.9 - Disorder of kidney and ureter, unspecified Status: Acute - Plan This is a 62 years old male with who denies any past medical history other than the lower leg edema and chronic wound, stated had "fungal infection from the war in [place]", and cataract. Patient denies any heart problems denies any diabetes denies any lung disease denies any liver disease or GI problems. Patient denies any smoking or alcohol intake. Patient presents to the emergency department under [place] act by local police, reported refusing treatment for the swollen legs, having delusional thoughts, talking to God, walking in the house without any underpants, fell 5 times before the admission. Patient is admitted in the psychiatric unit for management and treatment. Medicine team is consulted for lower extremity edema and medical management. Lower leg edema/lower leg redness /likely cellulitis L > R- per staff and patient improved Acute on chronic, redness likely due to edema -Venous Doppler negative for bilateral lower extremity deep venous thrombosis -Change antibiotic to Ancef IV 01/12 , plan to change to p.o. in a couple of days. -Wound care consulted for bilateral leg wound care management recommendation 1.Elevate lower extremities while in the chair or bed1. Perform shaving cream therapy to bilateral lower extremities x3 day ( Apply thick layer of shaving cream to lower extremities/feet ,wrap in warm moist towel let sit for 5min wipes clean.) 2. Cleanse bilateral lower extremities with normal saline pat dry 3. Apply single layer of Xeroform cut to fit wound base to open weeping areas cover with ABD secure with rolled gauze /paper tape. 4. Follow up with out patient wound center upon discharge. -on Lasix and potassium -Monitor BMP Cirrhosis /incidental finding on CT of the abdomen and pelvis- no encephalopathy Portal hypertension/incidental finding from CT of the abdomen and pelvis Ascites -Monitor blood pressure -Monitor for signs and symptoms -Check for hepatitis profile -Liver sonogram -Monitor LFT, - start Aldactone 12.5 mg po bid - continue on Lasix 40 mg daily - ff BMP Renal insufficiency/hypokalemia- improved - monitor BMP - started on Aldactone 12.5 mg po bid States having loose stools - on Ancef - check C diff - also on lactulose for cirrhosis - d/w staff nurse to monitor Elevated TSH/likely subclinical -Check free T4 Status post fall at home -Cervical spine CT without evidence of fracture -Head CT negative -Chest x-ray negative - PT eval and treat DVT prophylaxis: Increase ambulation Code Status: Full code Discussed Condition With: Patient, nurse and Dr. Mcfadden
--- NOTE | 2018-01-13 17:33 | ECG ---
Date Performed: 01/12/2018 Time Performed: 19:53:40 PTAGE: 62 years EKG: Sinus rhythm WITH OCCASIONAL ECTOPIC PREMATURE COMPLEXES NONSPECIFIC ST & T-WAVE ABNORMALITY BORDERLINE ECG NO PREVIOUS TRACING DOCTOR: Brett Amanda Interpretating Date/Time 01/13/2018 17:32:10
[2018-01-13] MEDS ORDERED: Spironolactone 25 MG Tablet PO SCH (18:00)
--- NOTE | 2018-01-13 21:40 | P.PNPSY ---
Subjective Remarks: Patient seen for follow up; chart reviewed. Discussion with nursing staff reported patient patient noted to be irritable, continues to endorse auditory hallucinations God's voice, compliant with medications. Patient was found sitting hospital chair noted to be, cooperative. Patient states that he had been sleeping well, eating and drinking well with little difficulty with bowel movement. Patient states that it is feeling "great" continues report hearing God's voice responding to his questioning. Patient demanding discharge. Review of Systems All other systems reviewed negative except as stated in HPI Mental Status Examination Appearance: Disheveled Consciousness: Alert Orientation: Person, Place Motor Activity: Abnormal gait Speech: Unremarkable Language: Other (Somewhat rambling) Fund of Knowledge: Adequate Attention and Concentration: Adequate Memory: Impaired (Suspected) Mood: Appropriate Affect: Appropriate Thought Process & Associations: Circumstantial Thought Content: Delusional Hallucination Type: Auditory Delusion Type: Bizarre, Paranoid, Other (Scientology preoccupation) Suicidal Ideation: No Suicidal Plan: No Suicidal Intention: No Homicidal Ideation: No Homicidal Plan: No Homicidal Intention: No Insight: Poor Judgment: Poor Assessment and Plan - Assessment (1) Unspecified psychosis Code(s): F29 - Unspecified psychosis not due to a substance or known physiological condition Status: Acute - Plan Plan: Patient this time continues to endorse auditory hallucinations as well as bizarre delusions and religiously preoccupied. Continue to titrate quetiapine to target psychosis. We will continue to monitor mood and behavior. Hospitalist input appreciated. Continue recommendations as her prior medical team. Discharge planning in progress. Justification for Continued Inpatient Stay: At risk of further decompensation a lower level of care.
[2018-01-14 07:40] LABS: Anion Gap 7 meq/L (5-15); Blood Urea Nitrogen 24 mg/dL (7-18); Calcium 8.4 mg/dL (8.5-10.1); Carbon Dioxide 25.5 meq/L (21.0-32.0); Chloride 109 meq/L (98-107); Glomerular Filtration Rate Greater Than 89 mL/min (>89); Glucose,Random 128 mg/dL (74-106); Potassium 3.6 meq/L (3.5-5.1); Sodium 141 meq/L (136-145)
--- NOTE | 2018-01-14 08:21 | P.PN ---
Subjective Interval history: Patient doing well, tolerating PO. Reports minimal drainage from leg wound, denies Dx of DM. No overnight concerns. Physical Exam Vital signs: Vital Signs 01/13/18 17:21 01/14/18 04:05 Temperature 98.2 F 98.1 F Pulse Rate 97 H 86 Respiratory Rate 18 18 Blood Pressure 165/74 H 133/64 Pulse Oximetry 95 97 Intake & Output 01/13/18 01/14/18 01/14/18 18:59 06:59 18:59 Intake Total 580 / 580 440 / 440 Balance 580 / 580 440 / 440 Intake: IV 100 / 100 200 / 200 Ancef Inj 1,000 MG In NS Inj 100 / 100 200 / 200 100 ML @ 200 mls/hr IV.SIG Q8H MAXWELL Rx#:[id number] Oral 480 / 480 240 / 240 Other: # Voids 2 Date of Last Bowel Movement 01/12/18 # Bowel Movements 1 Narrative: GENERAL: thin male, in NAD SKIN: Warm and dry. Bilateral lower extremity edema 2+ with mild erythema, left lower extremity with scaling of the skin clear drainage, xeroform lifted for exam) HEAD: Normocephalic. No scleral icterus. No injection or drainage. MOM. NECK: Supple, trachea midline. No JVD or lymphadenopathy. CARDIOVASCULAR: Regular rate and rhythm without murmurs, gallops, or rubs. RESPIRATORY: Breath sounds equal bilaterally. No accessory muscle use. GASTROINTESTINAL: Abdomen soft, non-tender, nondistended. MUSCULOSKELETAL: No cyanosis, or edema. BACK: Nontender without obvious deformity. No CVA tenderness. NEURO: AAOx1, pleasant Results - Labs CBC & Chem 7: 01/10/18 14:30 01/14/18 06:36 Laboratory Results - last 24 hr 01/13/18 01/13/18 01/14/18 06:40 06:40 06:36 Sodium 141 Potassium 3.4 L 3.6 Chloride 109 H Carbon Dioxide 25.5 Anion Gap 7 BUN 24 H Creatinine 0.76 Estimated GFR Greater than 89 Random Glucose 128 H Calcium 8.4 L Hepatitis A IgM Ab Nonreactive Hep Bs Antigen Nonreactive Hep B Core IgM Ab Nonreactive Hep C IgG Ab Nonreactive Microbiology 01/13/18 11:00 Wound - Leg Gram Stain - Final - Imaging Impressions Liver Ultrasound 01/13/18 00:00 CONCLUSION: 1. No definite gallstones in the gallbladder. There is diffuse thickening of the gallbladder wall at 6 mm. 2. Mild dilatation of the common bile duct at 8 mm. MRCP could be performed for further evaluation if clinically indicated. 3. Small amount of abdominal ascites in the upper abdomen. Assessment and Plan - Assessment (1) Bilateral edema of lower extremity Code(s): R60.0 - Localized edema Status: Acute (2) Cirrhosis Code(s): K74.60 - Unspecified cirrhosis of liver Status: Acute (3) Portal hypertension Code(s): K76.6 - Portal hypertension Status: Acute (4) Hypertension Code(s): I10 - Essential (primary) hypertension Status: Acute (5) Renal insufficiency, mild Code(s): N28.9 - Disorder of kidney and ureter, unspecified Status: Acute - Plan This is a 62 year old Male with PMHx fo Cirrhosis admitted for IP mgmt due to [place] Act by local police. Patient reports chronic wound, [facility] consulted for lower extremity edema/Cellulitis. HD#4 1. Lower Leg Edema/Cellulitis L>R, improved per staff Acute on chronic, redness likely due to edema, wound care on boards and placing Xeroform -Venous Doppler negative -Was on Ancef IV 01/12 however wound Cx+MRSA, switch to Vacn with pharmacy to dose, ID consulted to assist with mgmt -Wound care consulted for bilateral leg wound care management recommendation -Bld Cx obtained 01/14 2. Cirrhosis /incidental finding on CT of the abdomen and pelvis- no encephalopathy Portal hypertension/incidental finding from CT of the abdomen and pelvis Cont. Aldactone 12.5 mg po bid and Lasix 40 mg daily Monitor electrolytes Liver US CONCLUSION: 1. No definite gallstones in the gallbladder. There is diffuse thickening of the gallbladder wall at 6 mm. 2. Mild dilatation of the common bile duct at 8 mm. MRCP could be performed for further evaluation if clinically indicated. 3. Small amount of abdominal ascites in the upper abdomen. 3. Renal insufficiency: resolved. F/U AM BMP. 4. Loose stools, likely due to ABX - check C diff and stool studies - also on lactulose for cirrhosis - d/w staff nurse to monitor 5. Elevated TSH/likely subclinical -Free T4 WNL 6. Status post fall at home -Cervical spine CT without evidence of fracture -Head CT negative -Chest x-ray negative 7. DVT PPX: ambulatory, obtain stool studies and ID reccs Code Status: full Discussed Condition With: patient, RN
[2018-01-14] MEDS: QUEtiapine 25 MG Tablet PO SCH ×2 (09:58→20:45)
[2018-01-14] MEDS: Furosemide 40 MG Tablet PO SCH (09:59)
[2018-01-14] MEDS: Spironolactone 25 MG Tablet PO SCH ×2 (09:59→18:43)
[2018-01-14] MEDS: Senna/Docusate Sodium 8.6/50 MG Tablet PO SCH ×2 (10:07→20:45)
--- NOTE | 2018-01-14 11:53 | P.PNPSY ---
Subjective Remarks: Patient seen and examined with nurse in coverage for Dr. Saavedra. Chart reviewed. Case discussed with nursing staff. On my examination today, patient continues to exhibit amish preoccupation and says "if God is a hallucination , then I will be bad my whole life." Affect is somewhat expansive. Denies SI or HI. Denies side effects from medications. No new physical complaints. Vital Signs Temp Pulse Resp BP Pulse Ox 01/14/18 04:05 98.1 F 86 18 133/64 97 01/13/18 17:21 98.2 F 97 H 18 165/74 H 95 Intake and Output 01/14/18 01/14/18 01/14/18 06:59 14:59 22:59 Intake Total 100 / 100 0 / 0 Output Total 2 / 2 Balance 100 / 100 -2 / -2 Intake: IV 100 / 100 Ancef Inj 1,000 MG In NS Inj 100 / 100 100 ML @ 200 mls/hr IV.SIG Q8H MAXWELL Rx#:[id number] Oral 0 / 0 Output: Urine 2 / 2 Other: # Bowel Movements 2 Laboratory Results - last 24 hr 01/14/18 06:36 Sodium 141 Potassium 3.6 Chloride 109 H Carbon Dioxide 25.5 Anion Gap 7 BUN 24 H Creatinine 0.76 Estimated GFR Greater than 89 Random Glucose 128 H Calcium 8.4 L Labs reviewed. Review of Systems All other systems reviewed negative except as stated in HPI Mental Status Examination Appearance: Disheveled Consciousness: Alert Orientation: Person, Place Motor Activity: Other (No motor abnormalities noted) Speech: Unremarkable Language: Other (Somewhat rambling) Fund of Knowledge: Adequate Attention and Concentration: Adequate Memory: Impaired (Suspected) Mood: Appropriate Affect: Other (Somewhat expansive) Thought Process & Associations: Circumstantial Thought Content: Delusional Hallucination Type: None Delusion Type: Bizarre, Paranoid, Other (Caodaism preoccupation) Suicidal Ideation: No Suicidal Plan: No Suicidal Intention: No Homicidal Ideation: No Homicidal Plan: No Homicidal Intention: No Insight: Poor Judgment: Poor Assessment and Plan - Assessment (1) Unspecified psychosis Code(s): F29 - Unspecified psychosis not due to a substance or known physiological condition Status: Acute - Plan Plan: Titrate Seroquel to 50 mg in the morning and 75 mg at bedtime to target psychiatric symptoms. Hospitalist input appreciated. Continue to monitor on the medical psychiatric unit. Continue other care as ordered. Justification for Continued Inpatient Stay: Medication changes. Impairment in reality construction. Risk for decompensation in less restrictive environment. Discharge Planning: Per Dr. Saavedra
[2018-01-14] MEDS ORDERED: Vancomycin Consult Pharmacy OTHER PRN (15:17)
--- NOTE | 2018-01-14 16:59 | P.CONID ---
History of Present Illness Service: Infectious Disease Consult date: 01/14/18 Requesting Physician: Cintia Mantilla Reason for Consult: Evaluate patient with MRSA in wound Primary Care Provider: UNKNOWN Chief Complaint: swelling leg, weeping History of Present Illness: Patient seen and examined. Records reviewed. Patient is a 62-year-old male, brought into the hospital by local police under [place] act. He was apparently having some delusions and talking to God. His daughter who helps take care of him mentioned that the patient has been refusing treatment for his swollen legs. Patient stated he has had lower extremity swelling for a long time. He also has been having some unusual behavior and has been walking around the house without any pants or underwear, and has been noted to be defecating on the ground. He is fallen several times. He was brought into the hospital for further evaluation and treatment. On evaluation he was found to have a wound on his left leg. Culture of the wound is now reported as growing MRSA as well as gram-negative ashlee. He has not been febrile. Patient on imaging studies also has shown evidence of liver cirrhosis with portal hypertension. He has been afebrile. Patient could not tell me how long he has had those Infectious disease consultation has been requested to assist with antibiotic for the MRSA in his wound culture. Review of Systems Constitutional: Reports weight gain, Denies chills, Denies fever(s), Denies night sweats Eyes: Denies discharge, Denies dry eyes Ears, Nose, Mouth, and Throat: Denies difficulty swallowing, Denies lip swelling , Denies mouth pain, Denies nasal congestion, Denies sore throat Cardiovascular: Reports leg sores, Reports leg swelling, Denies chest pain, Denies shortness of breath Respiratory: Denies chest congestion, Denies cough, Denies shortness of breath Gastrointestinal: Denies abdominal pain, Denies nausea, Denies vomiting Genitourinary: Denies painful urination Musculoskeletal: Denies joint pain Skin/Breast: Reports sores, Denies rash Neurologic: Denies dizziness PMFSH - History History Provided By: Patient - Medical History Medical History: Medical History (Last Reviewed 01/14/18 @ 16:58 by Lupis Somers MD) Cataract Fungal infection Lower extremity edema Patient denies medical problems - Surgical History Surgical History: Surgical History (Last Reviewed 01/14/18 @ 16:58 by Lupis Somers MD) No history of previous surgery - Family History Family History: Family History (Last Reviewed 01/14/18 @ 16:58 by Lupis Somers MD) Other Family history unknown - Tobacco History Second Hand Smoke Exposure: No Tobacco Use In Past 30 Days: No Smoking Status: Never smoker Tobacco Type: Cigarettes - Alcohol History How Often Do You Have a Drink Containing Alcohol: Never - Substance Use History Substance History: No History of Abuse - Travel History Recent Travel in the [place] Within the Last 8 Weeks: No Recent Travel Out of the Country Within the Last 8 Weeks: No - Immunization History Tetanus Immunization: >5 Years Hx Influenza Vaccine This Season: Yes Medications and Allergies Active Medications: Active Medications Al Hydrox/Mg Hydrox/Simethicone (Mag-Al Plus Susp Liq) 30 ml PO Q6H PRN PRN Reason: DYSPEPSIA Al Hydroxide/Mg Hydroxide (Milk Of Magnesia Liq) 30 ml PO Q12H PRN PRN Reason: Mild Constipation Bisacodyl (Dulcolax Supp) 10 mg RECTAL DAILY PRN PRN Reason: SEVERE CONSITIPATION Diphenhydramine HCl (Benadryl) 50 mg PO HS PRN PRN Reason: INSOMNIA Furosemide (Lasix) 40 mg PO DAILY [facility] Last Admin: 01/14/18 09:59 Dose: 40 mg Haloperidol Lactate (Haldol Inj) 2.5 mg IM BID PRN PRN Reason: SEE LABEL COMMENTS Lactulose (Lactulose Liq) 30 ml PO DAILY PRN PRN Reason: SEVERE CONSITIPATION Lorazepam (Ativan) 0.5 mg PO Q12HR PRN PRN Reason: ANXIETY Miscellaneous (Pill Splitter) 1 each OTHER [facility] Pharmacy Profile Note (Vancomycin Consult Pharmacy) 1 each OTHER UNS PRN PRN Reason: Pharmacy to dose Potassium Chloride (K-Dur) 20 meq PO DAILY [facility] Last Admin: 01/14/18 09:59 Dose: 20 meq Quetiapine Fumarate (Seroquel) 50 mg PO DAILY [facility] Quetiapine Fumarate (Seroquel) 75 mg PO HS [facility] Senna/Docusate Sodium (Sakina-Colace) 1 tab PO BID [facility] Last Admin: 01/14/18 10:07 Dose: Not Given Sennosides (Senokot) 17.2 mg PO Q12H PRN PRN Reason: Moderate Constipation Spironolactone (Aldactone) 12.5 mg PO BID@0900,1800 [facility] Last Admin: 01/14/18 09:59 Dose: 12.5 mg Allergies Allergy/AdvReac Type Severity Reaction Status Date / Time Penicillins Allergy Anaphylaxis Verified 01/10/18 14:18 codeine AdvReac Vomiting Verified 01/10/18 14:18 Exam Vital signs: Vital Signs 01/13/18 17:21 01/14/18 04:05 Temperature 98.2 F 98.1 F Pulse Rate 97 H 86 Respiratory Rate 18 18 Blood Pressure 165/74 H 133/64 Pulse Oximetry 95 97 Intake & Output 01/13/18 01/14/18 01/14/18 18:59 06:59 18:59 Intake Total 580 / 580 440 / 440 0 / 0 Output Total 2 / 2 Balance 580 / 580 440 / 440 -2 / -2 Intake: IV 100 / 100 200 / 200 Ancef Inj 1,000 MG In NS Inj 100 / 100 200 / 200 100 ML @ 200 mls/hr IV.SIG Q8H [facility] Rx#:[id number] Oral 480 / 480 240 / 240 0 / 0 Output: Urine 2 / 2 Other: # Voids 2 Date of Last Bowel Movement 01/12/18 01/13/18 # Bowel Movements 1 2 Narrative: Physical Examination GENERAL: Patient is a well-nourished, well-developed male, awake and alert, not in respiratory distress. SKIN: Cool and dry. No generalized rash, no ecchymoses and no evidence of embolic lesions. HEAD: Atraumatic. Normocephalic. No temporal wasting, or tenderness. EYES: [place] conjunctiva. No petechia or hemorrhage. Pupils equal, round and reactive to light. Extraocular movements full and intact. No scleral icterus. No injection or drainage. EARS, NOSE AND THROAT: Nose without bleeding or purulent nasal discharge. No sinus tenderness. Mucous membranes pink and moist. No oral lesions noted. NECK: Trachea midline. Supple and not tender, no meningeal signs CARDIOVASCULAR: Regular rate and rhythm. No murmurs, rubs or gallops heard RESPIRATORY: Clear to auscultation. Breath sounds equal bilaterally. No rales , wheezing or rhonchi ABDOMEN: Soft, non-tender, nondistended. Bowel sounds present and normoactive. No guarding. No rebound. No organomegaly. EXTREMITIES: No clubbing, cyanosis. Has bilateral pitting pedal edema. LLE is larger compared to the RLE. There is a superficial wound on his anterior quiroz with some whitish macerated skin, with some mild periwound erythema, no purulence. No calf tenderness. Well perfused and warm. NEUROLOGICAL: Awake and alert. Cranial nerves grossly intact. Motor grossly within normal limits. PSYCHIATRIC: calm and cooperative. LINE: No evidence of infection Results - Labs CBC & Chem 7: 01/10/18 14:30 01/14/18 06:36 Labs: Laboratory Results - last 24 hr 01/14/18 06:36 Sodium 141 Potassium 3.6 Chloride 109 H Carbon Dioxide 25.5 Anion Gap 7 BUN 24 H Creatinine 0.76 Estimated GFR Greater than 89 Random Glucose 128 H Calcium 8.4 L - Imaging Cervical Spine CT 01/10/18 14:27 CONCLUSION: 1. Moderate to severe degenerative changes are noted without evidence for acute fracture. Head CT 01/10/18 14:27 CONCLUSION: 1. Negative CT Head non contrast. Abdomen/Pelvis CT 01/10/18 14:55 CONCLUSION: 1. Cirrhosis and portal hypertension. 2. Extensive atherosclerosis. Chest X-Ray 01/10/18 14:55 CONCLUSION: Negative examination. Venous Doppler Study 01/10/18 15:13 CONCLUSION: 1. The study is negative for bilateral lower extremity deep venous thrombosis. Liver Ultrasound 01/13/18 00:00 CONCLUSION: 1. No definite gallstones in the gallbladder. There is diffuse thickening of the gallbladder wall at 6 mm. 2. Mild dilatation of the common bile duct at 8 mm. MRCP could be performed for further evaluation if clinically indicated. 3. Small amount of abdominal ascites in the upper abdomen. Assessment and Plan - Plan Impression Henry LE edema, chronic, could be due to underlying liver cirrhosis and portal HTN Likely stasis ulcers L leg (+) wound C/S likely colonization with very mild cellulitis Unspecified psychosis Liver cirrhosis, with portal hypertension Recommendation Wound care as you are doing Edema control Give Doxy and Cipro x 7 days Main issue is edema control and wound care for healing of wounds Thank you for this consultation Please call if with any new ID issue or question
[2018-01-14] MEDS ORDERED: Vancomycin Inj 1,750 MG in Sodium Chlor 0.9% Inj 500 ML IV.SIG ONE (18:00)
[2018-01-14] MEDS: Ciprofloxacin 500 MG Tablet PO SCH (20:45)
[2018-01-15] MEDS: Furosemide 40 MG Tablet PO SCH (08:17)
[2018-01-15] MEDS: Spironolactone 25 MG Tablet PO SCH ×2 (08:17→17:28)
[2018-01-15] MEDS: Ciprofloxacin 500 MG Tablet PO SCH ×2 (08:17→20:44)
[2018-01-15] MEDS: QUEtiapine 25 MG Tablet PO SCH ×2 (08:18→20:44)
[2018-01-15] MEDS: Senna/Docusate Sodium 8.6/50 MG Tablet PO SCH ×3 (08:18→20:44)
[2018-01-15 08:27] LABS: Albumin 2.2 g/dL (3.4-5.0); Anion Gap 9 meq/L (5-15); Aspartate Aminotransferase 16 U/L (15-37); Blood Urea Nitrogen 24 mg/dL (7-18); Calcium 7.8 mg/dL (8.5-10.1); Carbon Dioxide 23.7 meq/L (21.0-32.0); Chloride 108 meq/L (98-107); Glomerular Filtration Rate Greater Than 89 mL/min (>89); Glucose,Random 108 mg/dL (74-106); Potassium 3.4 meq/L (3.5-5.1); Sodium 141 meq/L (136-145)
[2018-01-15 08:29] LABS: Alanine Aminotransferase 15 U/L (12-78)
[2018-01-15 08:31] LABS: Alkaline Phosphatase 83 U/L (45-117)
--- NOTE | 2018-01-15 10:07 | P.PNPSY ---
Subjective Remarks: Patient seen and case discussed with staff. Chart reviewed. Per nursing, patient has been eating poorly. Patient reports that he has had a relationship with God x 4 months. He remains religiously preoccupied. He denies any violent ideation toward family but does acknowledge that he made such statements in the past. No evident side effects from medications. No physical complaints. Vital Signs Temp Pulse Resp BP Pulse Ox 01/15/18 06:00 97.7 F 84 16 138/64 99 01/14/18 18:30 97.4 F L 97 H 18 159/90 H 98 Intake and Output 01/14/18 01/15/18 01/15/18 22:59 06:59 14:59 Intake Total 240 / 240 240 / 240 Balance 240 / 240 240 / 240 Intake: Oral 240 / 240 240 / 240 Other: # Voids 1 Laboratory Results - last 24 hr 01/15/18 07:01 Sodium 141 Potassium 3.4 L Chloride 108 H Carbon Dioxide 23.7 Anion Gap 9 BUN 24 H Creatinine 0.79 Estimated GFR Greater than 89 Random Glucose 108 H Calcium 7.8 L Total Bilirubin 0.4 AST 16 ALT 15 Alkaline Phosphatase 83 Total Protein 7.0 Albumin 2.2 L Labs reviewed. Review of Systems other (limited ROS today) Mental Status Examination Appearance: Disheveled Consciousness: Alert Orientation: Person, Place Motor Activity: Other (No abnormal motor movements noted.) Speech: Unremarkable Language: Other (Somewhat rambling) Fund of Knowledge: Adequate Attention and Concentration: Adequate Memory: Impaired (Suspected) Mood: Appropriate Affect: Other (Somewhat expansive) Thought Process & Associations: Circumstantial Thought Content: Delusional Hallucination Type: None Delusion Type: Bizarre, Other (Hindu preoccupation) Suicidal Ideation: No Homicidal Ideation: No Insight: Poor Judgment: Poor Assessment and Plan - Assessment (1) Unspecified psychosis Code(s): F29 - Unspecified psychosis not due to a substance or known physiological condition Status: Acute - Plan Plan: Continue increased dose of Seroquel as ordered. Hospitalist and infectious disease input noted and appreciated. Continue to monitor on the medical psychiatric unit. Continue other medications and care as ordered. Patient's case was presented to the [place] act court and the patient was retained on the unit with GA from [facility]. Justification for Continued Inpatient Stay: Impairment in reality construction. High risk for decompensation in less restrictive environment. Discharge Planning: Per Dr. Saavedra
--- NOTE | 2018-01-15 14:25 | P.PN ---
Subjective Interval history: Follow up for chronic venous stasis with possible superimposed soft tissue infection. Patient is currently doing well. Denies any chest pain, shortness of breath, fever or chills. Tolerating diet well. Physical Exam Vital signs: Vital Signs 01/14/18 18:30 01/15/18 06:00 Temperature 97.4 F L 97.7 F Pulse Rate 97 H 84 Respiratory Rate 18 16 Blood Pressure 159/90 H 138/64 Pulse Oximetry 98 99 Intake & Output 01/14/18 01/15/18 01/15/18 18:59 06:59 18:59 Intake Total 0 / 0 480 / 480 Output Total 2 / 2 Balance -2 / -2 480 / 480 Intake: Oral 0 / 0 480 / 480 Output: Urine 2 / 2 Other: # Voids 1 Date of Last Bowel Movement 01/13/18 # Bowel Movements 2 Narrative: GENERAL: thin male, in NAD SKIN: Warm and dry. Bilateral lower extremity edema 2+ with mild erythema. Currently covered with Xeroform. HEAD: Normocephalic. No scleral icterus. No injection or drainage. MOM. NECK: Supple, trachea midline. No JVD or lymphadenopathy. CARDIOVASCULAR: Regular rate and rhythm without murmurs, gallops, or rubs. RESPIRATORY: Breath sounds equal bilaterally. No accessory muscle use. GASTROINTESTINAL: Abdomen soft, non-tender, nondistended. MUSCULOSKELETAL: No cyanosis, or edema. BACK: Nontender without obvious deformity. No CVA tenderness. NEURO: AAOx1, pleasant Results - Labs CBC & Chem 7: 01/10/18 14:30 01/15/18 07:01 Laboratory Results - last 24 hr 01/15/18 07:01 Sodium 141 Potassium 3.4 L Chloride 108 H Carbon Dioxide 23.7 Anion Gap 9 BUN 24 H Creatinine 0.79 Estimated GFR Greater than 89 Random Glucose 108 H Calcium 7.8 L Total Bilirubin 0.4 AST 16 ALT 15 Alkaline Phosphatase 83 Total Protein 7.0 Albumin 2.2 L Microbiology 01/13/18 11:00 Wound - Leg Gram Stain - Final 01/13/18 11:00 Wound - Leg Wound Culture - Final Serratia marcescens S. aureus MRSA 01/14/18 16:35 Blood - Peripheral Aerobic Blood Culture - Preliminary No growth in 1 day 01/14/18 16:35 Blood - Peripheral Anaerobic Blood Culture - Preliminary No growth in 1 day 01/14/18 16:30 Blood - Peripheral Aerobic Blood Culture - Preliminary No growth in 1 day 01/14/18 16:30 Blood - Peripheral Anaerobic Blood Culture - Preliminary No growth in 1 day Assessment and Plan - Assessment (1) Bilateral edema of lower extremity Code(s): R60.0 - Localized edema Status: Acute (2) Cirrhosis Code(s): K74.60 - Unspecified cirrhosis of liver Status: Acute (3) Portal hypertension Code(s): K76.6 - Portal hypertension Status: Acute (4) Hypertension Code(s): I10 - Essential (primary) hypertension Status: Acute (5) Renal insufficiency, mild Code(s): N28.9 - Disorder of kidney and ureter, unspecified Status: Acute - Plan This is a 62 year old Male with PMHx fo Cirrhosis admitted for IP mgmt due to [place] by local police. Patient reports chronic wound, [facility] consulted for lower extremity edema/Cellulitis. HD#4 1. Lower Leg Edema/Cellulitis L>R, improved per staff -Acute on chronic, redness likely due to edema, wound care on boards and placing Xeroform -Venous Doppler negative -ID recommends doxycycline and ciprofloxacin for 7 days. -Wound care consulted for bilateral leg wound care management recommendation -Blood Cx obtained 01/14 no growth so far. 2. Cirrhosis /incidental finding on CT of the abdomen and pelvis- no encephalopathy -Portal hypertension/incidental finding from CT of the abdomen and pelvis -Cont. Aldactone 12.5 mg po bid and Lasix 40 mg daily -Monitor electrolytes. K is 3.4. On supplements. 3. Renal insufficiency: resolved. F/U AM BMP. 4. Loose stools, likely due to ABX Diarrhea is improving. 5. Subclinical hypothyroidism -Free T4 within normal range. No need to treat. Outpatient repeat TSH in several weeks after discharge. 6. Status post fall at home -Cervical spine CT without evidence of fracture -Head CT negative -Chest x-ray negative Full code. Ambulation.
--- NOTE | 2018-01-15 15:38 | P.DIET ---
Nutritional Evaluation Type of nutrition evaluation: initial Nutrition consult regarding: Diet Evaluation [place] [facility] [place] [facility] [place] Intake Subjective Subjective Comments: "Idont have any problem chewing", "I could chew a rock". Food preferences taken during this visit. Objective - Diagnosis Unspecified Psychosis - Objective [place] body weight: 81 kg % IBW: 106 Body Weight Used for Calculations: Actual (85.6kg) Energy Needs - Lower Range (kCal/kg): 22 Energy Needs - Upper Range (kCal/kg): 27 Lower Limit kCal/kg (kCals): 1,883 Upper Limit kCal/kg (kCals): 2,311 Lower Limit Protein Factor (Grams per Kg): 1.1 Upper Limit Protein Factor (Grams per Kg): 1.4 Lower Protein Needs (Protein): 94 Upper Protein Needs (Protein): 120 Fluid Factor (ml/kg): 27 Estimated Fluid Needs (ml): 2,311 Dietitian Reviewed in Medical Record: Current diet, Curent medications, Intake & Output, Labs, Medical history, Wound/DTI (Lower Extremity Edema; 01/13 WOCN note-see note in EMR) Diet Order: Objective Comments: PMH Includes: Cataracts, Fungal Infecton, Lower Extremity Edema A1C 6.4, Glucose 108 Meds Include: Lasix, Haldol, Ativan, Seroquel, Aldactone Assessment Assessment: Pt is at nutritional risk r/t poor po intake. Rec diet as . Send Glucerna Shakes TID(= 220 kcal and 10g Protein per serving). [place] food preferences. Labs reviewed. Dietitian will follow. Recommendations: 1. Rec diet as 2. Send Glucerna Shakes TID 3. [place] food preferences 4. Dietitian will follow Dietitian to Monitor: Lab values, Renal labs, Liver enzymes, Glucose level, Supplement acceptance, Intake & Output, Weight change, PO Intake, Wound/skin status, Medical course
[2018-01-16] MEDS: QUEtiapine 25 MG Tablet PO SCH (08:06)
[2018-01-16] MEDS: Ciprofloxacin 500 MG Tablet PO SCH ×2 (08:06→21:17)
[2018-01-16] MEDS: Senna/Docusate Sodium 8.6/50 MG Tablet PO SCH ×2 (08:07→20:33)
[2018-01-16] MEDS: Furosemide 40 MG Tablet PO SCH (08:07)
[2018-01-16] MEDS: Spironolactone 25 MG Tablet PO SCH ×2 (08:10→17:54)
--- NOTE | 2018-01-16 12:32 | P.PN ---
Subjective Interval history: Nursing denies any deterioration since last night. Patient himself has no new complaints. Physical Exam Vital signs: Vital Signs 01/15/18 18:00 01/16/18 06:15 Temperature 97.6 F 98.1 F Pulse Rate 87 83 Respiratory Rate 18 16 Blood Pressure 159/74 H 128/60 Pulse Oximetry 96 95 Intake & Output 01/15/18 01/16/18 01/16/18 18:59 06:59 18:59 Intake Total 780 / 780 480 / 480 480 / 480 Balance 780 / 780 480 / 480 480 / 480 Intake: Oral 780 / 780 480 / 480 480 / 480 Other: # Voids 3 1 Narrative: Bilateral lower extremity edema 2+ with mild erythema. Left lower extremity currently covered with Xeroform. No acute distress, pleasant demeanor, maintains good eye contact Results - Labs CBC & Chem 7: 01/10/18 14:30 01/15/18 07:01 Microbiology 01/14/18 16:35 Blood - Peripheral Aerobic Blood Culture - Preliminary No growth in 2 days 01/14/18 16:35 Blood - Peripheral Anaerobic Blood Culture - Preliminary No growth in 2 days 01/14/18 16:30 Blood - Peripheral Aerobic Blood Culture - Preliminary No growth in 2 days 01/14/18 16:30 Blood - Peripheral Anaerobic Blood Culture - Preliminary No growth in 2 days 01/13/18 11:00 Wound - Leg Gram Stain - Final 01/13/18 11:00 Wound - Leg Wound Culture - Final Serratia marcescens S. aureus MRSA Assessment and Plan - Assessment (1) Bilateral edema of lower extremity Code(s): R60.0 - Localized edema Status: Acute (2) Cirrhosis Code(s): K74.60 - Unspecified cirrhosis of liver Status: Acute (3) Portal hypertension Code(s): K76.6 - Portal hypertension Status: Acute (4) Hypertension Code(s): I10 - Essential (primary) hypertension Status: Acute (5) Renal insufficiency, mild Code(s): N28.9 - Disorder of kidney and ureter, unspecified Status: Acute - Plan This is a 62 year old Male with PMHx fo Cirrhosis admitted for IP mgmt due to [place] by local police. Patient reports chronic wound, [facility] consulted for lower extremity edema/Cellulitis. 1. Lower Leg Edema/Cellulitis L>R, improved per staff -Acute on chronic, redness likely due to edema, wound care on boards and placing Xeroform -Venous Doppler negative -doxycycline and ciprofloxacin for 7 days per ID -Wound care consulted for bilateral leg wound care management recommendation -Blood Cx obtained 01/14 no growth so far. 2. Cirrhosis /incidental finding on CT of the abdomen and pelvis- no encephalopathy -Portal hypertension/incidental finding from CT of the abdomen and pelvis -Cont. Aldactone 12.5 mg po bid and Lasix 40 mg daily 4. Loose stools, likely due to ABX Diarrhea is improving. 5. Subclinical hypothyroidism -Free T4 within normal range. No need to treat. Outpatient repeat TSH in several weeks after discharge.
[2018-01-16] MEDS: QUEtiapine 100 MG Tablet PO SCH (21:17)
--- NOTE | 2018-01-16 22:09 | P.PNPSY ---
Subjective Remarks: Patient seen for follow, chart reviewed. Discussion with nursing staff reported the patient belligerent with family over the phone, on phone restrictions due to the same, compliant with medications, refuses placement. Patient was found in another patient's room and had to be redirected back to his room as he is on contact precautions. Patient states that his daughter lied about the events prior to his admission. He states having had a visit by his granddaughter which did not go well. He continues to report speaking to God and God telling him that he will be discharged today or tomorrow. He states believing having had visions from God of future events regarding his family. Review of Systems All other systems reviewed negative except as stated in HPI Mental Status Examination Appearance: Disheveled Consciousness: Alert Orientation: Person, Place Motor Activity: Other (No abnormal motor movements noted.) Speech: Unremarkable Language: Other (Somewhat rambling) Fund of Knowledge: Adequate Attention and Concentration: Adequate Memory: Impaired (Suspected) Mood: Appropriate Affect: Other (Somewhat expansive) Thought Process & Associations: Circumstantial Thought Content: Hallucinations, Delusional Hallucination Type: Auditory Delusion Type: Bizarre, Other (Buddhism preoccupation) Suicidal Ideation: No Suicidal Plan: No Suicidal Intention: No Homicidal Ideation: No Homicidal Plan: No Homicidal Intention: No Insight: Poor Judgment: Poor Assessment and Plan - Assessment (1) Unspecified psychosis Code(s): F29 - Unspecified psychosis not due to a substance or known physiological condition Status: Acute - Plan Plan: Patient continues with bizarre delusions, auditory hallucinations and bahai preoccupations. Will continue to titrate quetiapine to 50mg daily/100mg HS, continue rest of medications, continue recommendations as per primary medical team, input appreciated. Continue to monitor mood and behavior. Discharge planning in progress. Justification for Continued Inpatient Stay: At risk for further decompensation at lower level of care.
[2018-01-17] MEDS: QUEtiapine 25 MG Tablet PO SCH (09:00)
[2018-01-17] MEDS: Furosemide 40 MG Tablet PO SCH (09:00)
[2018-01-17] MEDS: Senna/Docusate Sodium 8.6/50 MG Tablet PO SCH ×2 (09:00→20:21)
[2018-01-17] MEDS: Ciprofloxacin 500 MG Tablet PO SCH ×2 (09:00→20:43)
[2018-01-17] MEDS: Spironolactone 25 MG Tablet PO SCH (09:00)
--- NOTE | 2018-01-17 11:07 | P.PN ---
Subjective Interval history: Follow-up visit left lower extremity cellulitis, cirrhosis with portal pretension, bilateral lower extremity edema. Patient seen and examined today. Reports is doing okay. States that "I placed all my trust in God and he will bear me." Hyper religiosity. Patient states that the nurses are putting stool softeners on his meal. Denies diarrhea. Denies pain and discomfort. Denies SOB/ dyspnea. Denies chest pain, palpitations, headaches, dizziness. Denies fevers, chills, nausea, vomiting. Denies dysuria. Physical Exam Vital signs: Vital Signs 01/16/18 18:03 01/17/18 05:37 Temperature 98.3 F 98.8 F Pulse Rate 82 81 Respiratory Rate 16 Blood Pressure 139/78 122/64 Pulse Oximetry 96 94 L Intake & Output 01/16/18 01/17/18 01/17/18 18:59 06:59 18:59 Intake Total 720 / 720 1080 / 1080 Balance 720 / 720 1080 / 1080 Intake: Oral 720 / 720 1080 / 1080 Other: # Voids 1 Narrative: GENERAL: This is a thin appearing, well-developed patient, in no apparent distress. SKIN: Warm and dry. HEENT: Normocephalic. Pupils round. Nose without bleeding. Airway patent. NECK: Trachea midline. CARDIOVASCULAR: Regular rate and rhythm without murmurs, gallops, or rubs. RESPIRATORY: Slightly diminished bases. No wheezes, rales, or rhonchi. GASTROINTESTINAL: Abdomen soft, non-tender. Bowel Sounds normoactive x4. MUSCULOSKELETAL: Extremities without clubbing, cyanosis, or edema. Bilateral lower extremity edema 2+ with mild erythema. Left lower extremity currently covered with Xeroform. NEUROLOGICAL: Awake and alert. Hyperreligiosity. Moves all extremities. Normal speech. Results - Labs CBC & Chem 7: 01/10/18 14:30 01/15/18 07:01 Microbiology 01/14/18 16:35 Blood - Peripheral Aerobic Blood Culture - Preliminary No growth in 3 days 01/14/18 16:35 Blood - Peripheral Anaerobic Blood Culture - Preliminary No growth in 3 days 01/14/18 16:30 Blood - Peripheral Aerobic Blood Culture - Preliminary No growth in 3 days 01/14/18 16:30 Blood - Peripheral Anaerobic Blood Culture - Preliminary No growth in 3 days Assessment and Plan - Assessment (1) Bilateral edema of lower extremity Code(s): R60.0 - Localized edema Status: Acute (2) Cirrhosis Code(s): K74.60 - Unspecified cirrhosis of liver Status: Acute (3) Portal hypertension Code(s): K76.6 - Portal hypertension Status: Acute (4) Hypertension Code(s): I10 - Essential (primary) hypertension Status: Acute (5) Renal insufficiency, mild Code(s): N28.9 - Disorder of kidney and ureter, unspecified Status: Acute - Plan This is a 62 year old Male with PMHx fo Cirrhosis admitted as [place] by local police. Patient reports chronic wound, [facility] consulted for lower extremity edema/Cellulitis. Lower Leg Edema/Cellulitis L>R, improved per staff -Acute on chronic, redness likely due to edema, wound care on boards and placing Xeroform -Venous Doppler negative -doxycycline and ciprofloxacin for 7 days per ID -Wound care consulted for bilateral leg wound care management recommendation -Blood Cx obtained 01/14 no growth to date Cirrhosis /incidental finding on CT of the abdomen and pelvis- no encephalopathy -Portal hypertension/incidental finding from CT of the abdomen and pelvis -Cont. Aldactone 12.5 mg po bid and Lasix 40 mg daily -Add lasix IV x1 dose today, edema BLE continues Loose stools, likely due to ABX -Improved -Suspicious of nurses putting stool softeners in his meals Subclinical hypothyroidism -Free T4 within normal range. No need to treat. Outpatient repeat TSH in several weeks after discharge. DVT prop ambulatory Code Status: Full code Discussed Condition With: Patient, nurse Discharge Planning: DC disposition by primary team
--- NOTE | 2018-01-17 15:22 | P.PNPSY ---
Subjective Remarks: Patient was seen and case discussed with nursing. Patient is very religiously preoccupied. Feels that all of his thoughts and actions are subsequent to being controlled by God. He says that God is also controlling all my questions. He is very poor insight into his admission. He is compliant with his medications and behaving well on the unit Mental Status Examination Appearance: Disheveled Consciousness: Alert Orientation: Person, Place Motor Activity: Other (No abnormal motor movements noted.) Speech: Unremarkable Language: Other (Somewhat rambling) Fund of Knowledge: Adequate Attention and Concentration: Adequate Memory: Impaired (Suspected) Mood: Appropriate Affect: Other (Somewhat expansive) Thought Process & Associations: Circumstantial, Disorganized Thought Content: Hallucinations, Delusional Hallucination Type: Auditory Delusion Type: Bizarre (Religiously preoccupied), Other (Worship preoccupation ) Suicidal Ideation: No Suicidal Plan: No Suicidal Intention: No Homicidal Ideation: No Homicidal Plan: No Homicidal Intention: No Insight: Poor Judgment: Poor Assessment and Plan - Assessment (1) Unspecified psychosis Code(s): F29 - Unspecified psychosis not due to a substance or known physiological condition Status: Acute - Plan Plan: Continue current treatment plan Justification for Continued Inpatient Stay: Patient would decompensate in a less restrictive setting
[2018-01-17] MEDS: QUEtiapine 100 MG Tablet PO SCH (20:42)
[2018-01-18] MEDS: QUEtiapine 25 MG Tablet PO SCH (09:01)
[2018-01-18] MEDS: Furosemide 40 MG Tablet PO SCH (09:02)
[2018-01-18] MEDS: Ciprofloxacin 500 MG Tablet PO SCH ×2 (09:02→21:38)
[2018-01-18] MEDS: Senna/Docusate Sodium 8.6/50 MG Tablet PO SCH ×2 (09:02→21:38)
[2018-01-18] MEDS: Spironolactone 25 MG Tablet PO SCH ×2 (09:05→18:13)
--- NOTE | 2018-01-18 12:02 | P.PN ---
Subjective Interval history: Follow-up visit left lower extremity cellulitis, cirrhosis with portal pretension, bilateral lower extremity edema. Patient seen and examined today. Reports is doing the same. States legs are still swollen, as God wants it. States he forgives everyone. Tangible conversation. Denies diarrhea. Denies pain and discomfort. Denies SOB/ dyspnea. Denies chest pain, palpitations, headaches, dizziness. Denies fevers, chills, nausea, vomiting. Denies dysuria. Physical Exam Vital signs: Vital Signs 01/17/18 17:59 01/18/18 06:00 Temperature 97.2 F L 97.6 F Pulse Rate 81 79 Respiratory Rate 16 17 Blood Pressure 122/67 141/80 H Pulse Oximetry 97 98 Intake & Output 01/17/18 01/18/18 01/18/18 18:59 06:59 18:59 Intake Total 480 / 480 480 / 480 Balance 480 / 480 480 / 480 Intake: Oral 480 / 480 480 / 480 Other: # Voids 2 Narrative: GENERAL: This is a thin appearing, well-developed patient, in no apparent distress. SKIN: Warm and dry. HEENT: Normocephalic. Pupils round. Nose without bleeding. Airway patent. NECK: Trachea midline. CARDIOVASCULAR: Regular rate and rhythm without murmurs, gallops, or rubs. RESPIRATORY: Slightly diminished bases. No wheezes, rales, or rhonchi. GASTROINTESTINAL: Abdomen soft, non-tender. Bowel Sounds normoactive x4. MUSCULOSKELETAL: Extremities without clubbing, cyanosis, or edema. Bilateral lower extremity edema 2+ with mild erythema. Left lower extremity currently covered with Xeroform. Stasis. NEUROLOGICAL: Awake and alert. Hyperreligiosity. Moves all extremities. Normal speech. Results - Labs CBC & Chem 7: 01/10/18 14:30 01/15/18 07:01 Microbiology 01/14/18 16:35 Blood - Peripheral Aerobic Blood Culture - Preliminary No growth in 4 days 01/14/18 16:35 Blood - Peripheral Anaerobic Blood Culture - Preliminary No growth in 4 days 01/14/18 16:30 Blood - Peripheral Aerobic Blood Culture - Preliminary No growth in 4 days 01/14/18 16:30 Blood - Peripheral Anaerobic Blood Culture - Preliminary No growth in 4 days Assessment and Plan - Assessment (1) Bilateral edema of lower extremity Code(s): R60.0 - Localized edema Status: Acute (2) Cirrhosis Code(s): K74.60 - Unspecified cirrhosis of liver Status: Acute (3) Portal hypertension Code(s): K76.6 - Portal hypertension Status: Acute (4) Hypertension Code(s): I10 - Essential (primary) hypertension Status: Acute (5) Renal insufficiency, mild Code(s): N28.9 - Disorder of kidney and ureter, unspecified Status: Acute - Plan This is a 62 year old Male with PMHx fo Cirrhosis admitted as [place] by local police. Patient reports chronic wound, [facility] consulted for lower extremity edema/Cellulitis. Lower Leg Edema/Cellulitis L>R, improved per staff -Acute on chronic, redness likely due to edema, wound care on boards and placing Xeroform -Venous Doppler negative -doxycycline and ciprofloxacin for 7 days per ID -Wound care consulted for bilateral leg wound care management recommendation -Blood Cx obtained 01/14 no growth to date -Continue wound care. -Lasix, will add metolazone -Leg elevation at rest. Cirrhosis /incidental finding on CT of the abdomen and pelvis- no encephalopathy -Portal hypertension/incidental finding from CT of the abdomen and pelvis -Cont. Aldactone 12.5 mg po bid and Lasix 40 mg daily -Add lasix IV x1 dose today, edema BLE continues Loose stools, likely due to ABX -Improved -Suspicious of nurses putting stool softeners in his meals Subclinical hypothyroidism -Free T4 within normal range. No need to treat. Outpatient repeat TSH in several weeks after discharge. DVT prop ambulatory Full code Discussed with patient, nursing Discharge Planning: DC disposition by primary team
--- NOTE | 2018-01-18 13:55 | P.PNPSY ---
Subjective Remarks: Patient was seen and case discussed with nursing. Today, patient is very irritable and religiously preoccupied. He was calling the nurse Satan and threatening to segundo everyone. He is perseverative on discharge. Today, he had bizarre delusions where he thought he works for the governor and his sister was the governor's Mental Status Examination Appearance: Disheveled Consciousness: Alert Orientation: Person, Place Motor Activity: Other (No abnormal motor movements noted.) Speech: Unremarkable Language: Other (Somewhat rambling) Fund of Knowledge: Adequate Attention and Concentration: Adequate Memory: Impaired (Suspected) Mood: Angry, Oppositional Affect: Labile Thought Process & Associations: Circumstantial, Disorganized Thought Content: Hallucinations, Delusional Hallucination Type: Auditory Delusion Type: Bizarre (Religiously preoccupied), Other (Latter Day preoccupation ) Suicidal Ideation: No Suicidal Plan: No Suicidal Intention: No Homicidal Ideation: No Homicidal Plan: No Homicidal Intention: No Insight: Poor Judgment: Poor Assessment and Plan - Assessment (1) Unspecified psychosis Code(s): F29 - Unspecified psychosis not due to a substance or known physiological condition Status: Acute - Plan Plan: Continue current treatment plan Justification for Continued Inpatient Stay: Patient would decompensate in a less restrictive setting
[2018-01-18] MEDS: metOLazone 5 MG Tablet PO SCH (16:05)
[2018-01-18] MEDS: QUEtiapine 100 MG Tablet PO SCH (21:38)
[2018-01-19] MEDS ORDERED: Haloperidol Inj 5 MG/ML Ampul ONE (00:46)
[2018-01-19] MEDS ORDERED: Haloperidol Inj 5 MG/ML Ampul IM PRN ×2 (00:50→01:23)
[2018-01-19] MEDS ORDERED: Haloperidol Inj 5 MG/ML Ampul IM ONE (01:00)
[2018-01-19] MEDS: metOLazone 5 MG Tablet PO SCH (08:20)
[2018-01-19] MEDS: Ciprofloxacin 500 MG Tablet PO SCH ×2 (08:20→21:18)
[2018-01-19] MEDS: QUEtiapine 25 MG Tablet PO SCH (08:20)
[2018-01-19] MEDS: Furosemide 40 MG Tablet PO SCH (08:20)
[2018-01-19] MEDS: Senna/Docusate Sodium 8.6/50 MG Tablet PO SCH ×2 (08:20→21:19)
[2018-01-19] MEDS: Spironolactone 25 MG Tablet PO SCH ×2 (08:21→17:26)
--- NOTE | 2018-01-19 08:27 | P.PN ---
Subjective Interval history: Follow-up visit left lower extremity cellulitis, stasis, cirrhosis with portal pretension, bilateral lower extremity edema. Patient seen and examined today. Reports he is doing okay. Denies diarrhea. Denies pain and discomfort. Denies SOB/ dyspnea. Denies chest pain, palpitations, headaches, dizziness. Denies fevers, chills, nausea, vomiting. Denies dysuria. Physical Exam Vital signs: Vital Signs 01/18/18 17:57 01/19/18 06:00 Temperature 98 F 98.9 F Pulse Rate 89 78 Respiratory Rate 18 16 Blood Pressure 134/66 115/73 Pulse Oximetry 96 97 Intake & Output 01/18/18 01/19/18 01/19/18 18:59 06:59 18:59 Intake Total 960 / 960 100 / 100 Balance 960 / 960 100 / 100 Weight 78 kg Intake: Oral 960 / 960 0 / 0 Oral Supplement 100 / 100 Other: # Voids 3 1 Date of Last Bowel Movement 01/13/18 01/18/18 # Bowel Movements 1 Narrative: GENERAL: This is a thin appearing, well-developed patient, in no apparent distress. SKIN: Warm and dry. HEENT: Normocephalic. Pupils round. Nose without bleeding. Airway patent. NECK: Trachea midline. CARDIOVASCULAR: Regular rate and rhythm without murmurs, gallops, or rubs. RESPIRATORY: Slightly diminished bases. No wheezes, rales, or rhonchi. GASTROINTESTINAL: Abdomen soft, non-tender. Bowel Sounds normoactive x4. MUSCULOSKELETAL: Extremities without clubbing, cyanosis, or edema. Bilateral lower extremity edema 2+ with mild erythema. Left lower extremity currently covered with Xeroform. Stasis. NEUROLOGICAL: Awake and alert. Hyperreligiosity. Moves all extremities. Normal speech. Results - Labs CBC & Chem 7: 01/10/18 14:30 01/15/18 07:01 Microbiology 01/14/18 16:35 Blood - Peripheral Aerobic Blood Culture - Preliminary No growth in 4 days 01/14/18 16:35 Blood - Peripheral Anaerobic Blood Culture - Preliminary No growth in 4 days 01/14/18 16:30 Blood - Peripheral Aerobic Blood Culture - Preliminary No growth in 4 days 01/14/18 16:30 Blood - Peripheral Anaerobic Blood Culture - Preliminary No growth in 4 days Assessment and Plan - Assessment (1) Bilateral edema of lower extremity Code(s): R60.0 - Status: Acute (2) Cirrhosis Code(s): K74.60 - Status: Acute (3) Portal hypertension Code(s): K76.6 - Status: Acute (4) Hypertension Code(s): I10 - Status: Acute (5) Renal insufficiency, mild Code(s): N28.9 - Status: Acute - Plan This is a 62 year old Male with PMHx fo Cirrhosis admitted as [place] by local police. Patient reports chronic wound, [facility] consulted for lower extremity edema/Cellulitis. Lower Leg Edema/Cellulitis L>R, improved per staff -Acute on chronic, redness likely due to edema, wound care on boards and placing Xeroform -Venous Doppler negative -doxycycline and ciprofloxacin for 7 days per ID -Wound care consulted for bilateral leg wound care management recommendation -Blood Cx obtained 01/14 no growth to date -Continue wound care. -Lasix, metolazone -Leg elevation at rest. Cirrhosis /incidental finding on CT of the abdomen and pelvis- no encephalopathy -Portal hypertension/incidental finding from CT of the abdomen and pelvis -Cont. Aldactone 12.5 mg po bid and Lasix 40 mg daily -Edema BLE improved -Metolazone added Loose stools, likely due to ABX -Improved -Suspicious of nurses putting stool softeners in his meals -none reported Subclinical hypothyroidism -Free T4 within normal range. No need to treat. Outpatient repeat TSH in several weeks after discharge. DVT prop ambulatory Stable from Hospitalist standpoint. We will sign off. Reconsult as needed. Thank you. Code Status: Full code Discussed Condition With: Discussed with patient, nursing Discharge Planning: DC disposition by primary team
--- NOTE | 2018-01-19 17:20 | P.PNPSY ---
Subjective Remarks: Reviewed electronic medical records and discussed case with staff. Follow-up was conducted in the patient's room. He was found lying in the bed dozing off. Nurse reports he required an ETO last night after barricading himself in the bathroom. Today he is cooperative and pleasant. Reports that he slept well and that he "feels good". Nurse states that he has been compliant with his medications today. Mental Status Examination Appearance: Disheveled Consciousness: Alert Orientation: Person, Place Motor Activity: Other (No abnormal motor movements noted.) Speech: Unremarkable Language: Other (Somewhat rambling) Fund of Knowledge: Adequate Attention and Concentration: Adequate Memory: Impaired (Suspected) Mood: Angry, Oppositional Affect: Labile Thought Process & Associations: Circumstantial, Disorganized Thought Content: Hallucinations, Delusional Hallucination Type: Auditory Delusion Type: Bizarre (Religiously preoccupied), Other (Denominational preoccupation ) Suicidal Ideation: No Suicidal Plan: No Suicidal Intention: No Homicidal Ideation: No Homicidal Plan: No Homicidal Intention: No Insight: Poor Judgment: Poor Assessment and Plan - Assessment (1) Unspecified psychosis Code(s): F29 - Unspecified psychosis not due to a substance or known physiological condition Status: Acute - Plan Plan: Patient will be reevaluated tomorrow by the attending psychiatrist. Continue with current treatment plan. Justification for Continued Inpatient Stay: Moving this patient to a less restrictive environment would likely result in decompensation.
[2018-01-19] MEDS: QUEtiapine 100 MG Tablet PO SCH (21:19)
[2018-01-20] MEDS: Spironolactone 25 MG Tablet PO SCH ×4 (07:05→18:05)
[2018-01-20] MEDS: Senna/Docusate Sodium 8.6/50 MG Tablet PO SCH ×2 (08:29→21:07)
[2018-01-20] MEDS: Furosemide 40 MG Tablet PO SCH (08:29)
[2018-01-20] MEDS: Ciprofloxacin 500 MG Tablet PO SCH ×2 (08:29→21:07)
[2018-01-20] MEDS: metOLazone 5 MG Tablet PO SCH (08:30)
[2018-01-20] MEDS: QUEtiapine 100 MG Tablet PO SCH ×2 (08:32→21:07)
--- NOTE | 2018-01-20 16:37 | P.PNPSY ---
Subjective Remarks: Patient seen for follow up, chart reviewed. Discussion with nursing staff reported had received ETO two days ago as he attempted to barricade himself in the bathroom but no behavioral disturbances last night. Patient was found lying on hospital bed, noted to be somewhat irritable, states he was trying to barricade himself in the bathroom. He reports that he is wanting to be discharged to one of his three residence which he states owns. He continues to report hearing God's voice tell him that he will be released soon. He denies having any ill thoughts of his family, i.e. believing they are the devil. He states that he had his visions previously and states that he still loves his family but does not necessarily like them. Review of Systems All other systems reviewed negative except as stated in HPI Mental Status Examination Appearance: Disheveled Consciousness: Alert Orientation: Person, Place Motor Activity: Other (No abnormal motor movements noted.) Speech: Unremarkable Language: Other (Somewhat rambling) Fund of Knowledge: Adequate Attention and Concentration: Adequate Memory: Impaired (Suspected) Mood: Irritable Affect: Irritable Thought Process & Associations: Linear Thought Content: Hallucinations, Delusional Hallucination Type: Auditory Delusion Type: Bizarre (Religiously preoccupied), Other (Adventism preoccupation ) Suicidal Ideation: No Suicidal Plan: No Suicidal Intention: No Homicidal Ideation: No Homicidal Plan: No Homicidal Intention: No Insight: Poor Judgment: Poor Assessment and Plan - Assessment (1) Unspecified psychosis Code(s): F29 - Unspecified psychosis not due to a substance or known physiological condition Status: Acute - Plan Plan: Patient continues to endorse AH of God's voice but bizarre delusion of family being evil are slightly lessening. He continues to believe that he has three houses that he can stay at with no insight into the concern of patient's self care deficit. Will continue to titrate quetiapine to 100mg BID for psychosis. Will continue to find appropriate discharge place. Continue rest of medication. Discharge planning in progress. Justification for Continued Inpatient Stay: At risk for further decompensation at lower level of care.
[2018-01-21] MEDS: QUEtiapine 100 MG Tablet PO SCH ×2 (08:44→22:16)
[2018-01-21] MEDS: Furosemide 40 MG Tablet PO SCH (08:44)
[2018-01-21] MEDS: Ciprofloxacin 500 MG Tablet PO SCH (08:45)
[2018-01-21] MEDS: Senna/Docusate Sodium 8.6/50 MG Tablet PO SCH ×2 (08:45→22:16)
[2018-01-21] MEDS: metOLazone 5 MG Tablet PO SCH (08:45)
[2018-01-21] MEDS: Spironolactone 25 MG Tablet PO SCH ×2 (08:48→19:06)
--- NOTE | 2018-01-21 11:41 | P.PNPSY ---
Subjective Remarks: Patient seen for follow up; chart reviewed. Discussion with nursing staff reported that patient with no behavioral disturbances, compliant with medications, slept well last night. Patient was found sitting in hospital chair next window noted B, cooperative. Patient state he slept well last night , having adequate bowel movement but admits to noticing bright red blood which she later was able to state having strained when having a bowel movement recently. He reports that he has spoken to God last night that he was being told "everything is going to be all right". Patient reports his mood to be fine " he denies any suicidal homicidal ideation continues to state that he loves his family but does not necessarily like them. Review of Systems All other systems reviewed negative except as stated in HPI Mental Status Examination Appearance: Disheveled Consciousness: Alert Orientation: Person, Place Motor Activity: Other (No abnormal motor movements noted.) Speech: Unremarkable Language: Other (Somewhat rambling) Fund of Knowledge: Adequate Attention and Concentration: Adequate Memory: Impaired (Suspected) Mood: Irritable Affect: Irritable Thought Process & Associations: Linear Thought Content: Hallucinations, Delusional Hallucination Type: Auditory Delusion Type: Bizarre (Religiously preoccupied), Other (Jainism preoccupation ) Suicidal Ideation: No Suicidal Plan: No Suicidal Intention: No Homicidal Ideation: No Homicidal Plan: No Homicidal Intention: No Insight: Poor Judgment: Poor Assessment and Plan - Assessment (1) Unspecified psychosis Code(s): F29 - Unspecified psychosis not due to a substance or known physiological condition Status: Acute - Plan Plan: Patient this time no further behavioral disturbances, has been continue compliance of medications. Continues to endorse auditory hallucinations of God speaking with him but no longer endorsing of having visions of his family. We will continue current treatment. We will continue to monitor mood and behavior. Treatment team actively looking for a place for patient as patient is at risk for inability to care for self as well as ongoing delusions and auditory hallucinations. Justification for Continued Inpatient Stay: At risk of further decompensation a lower level of care.
[2018-01-22] MEDS: Furosemide 40 MG Tablet PO SCH (08:20)
[2018-01-22] MEDS: Senna/Docusate Sodium 8.6/50 MG Tablet PO SCH ×2 (08:20→20:33)
[2018-01-22] MEDS: Spironolactone 25 MG Tablet PO SCH ×2 (08:20→18:25)
[2018-01-22] MEDS: metOLazone 5 MG Tablet PO SCH (08:21)
[2018-01-22] MEDS: QUEtiapine 100 MG Tablet PO SCH (08:21)
--- NOTE | 2018-01-22 11:54 | P.PNPSY ---
Subjective Remarks: Patient seen for follow up; chart reviewed. Discussion with nursing staff reported patient no behavioral services, denying any suicidal homicidal ideations. Patient was found sitting hospital chair next to the window noted B , cooperative. Patient states that he is feeling "fine" continues report having conversations with God which he has been told that everything will be fine. Patient continues to believe that daughter and granddaughter were proceeding as long along with the physicians and nurses that keep him here in the hospital. Patient states that he is willing to return back to his daughter' s home and not initially need to interact with them despite him having discontinued delusions that they are evil. Family this time continues to have safety concerns and do not feel safe of patient returning home. Review of Systems All other systems reviewed negative except as stated in HPI Mental Status Examination Appearance: Appropriate Consciousness: Alert Orientation: Person, Place Motor Activity: Other (No abnormal motor movements noted.) Speech: Unremarkable Language: Other (Somewhat rambling) Fund of Knowledge: Adequate Attention and Concentration: Adequate Memory: Impaired (Suspected) Mood: Irritable Affect: Irritable Thought Process & Associations: Linear Thought Content: Hallucinations, Delusional Hallucination Type: Auditory Delusion Type: Bizarre (Religiously preoccupied), Other (Presybeterian preoccupation ) Suicidal Ideation: No Suicidal Plan: No Suicidal Intention: No Homicidal Ideation: No Homicidal Plan: No Homicidal Intention: No Insight: Poor Judgment: Poor Assessment and Plan - Assessment (1) Unspecified psychosis Code(s): F29 - Unspecified psychosis not due to a substance or known physiological condition Status: Acute - Plan Plan: Patient continues with auditory hallucinations of God's voice although not command in nature but also continues to believe that his family work for [employer]. We will continue to titrate quetiapine to 100 mg a.m./150 mg at bedtime for psychosis. Continue to monitor mood behavior. We will continue recommendations as per prior medical team. Discharge planning in progress. Justification for Continued Inpatient Stay: At risk of further decompensation a lower level of care.
--- NOTE | 2018-01-22 16:06 | P.DIET ---
Nutritional Evaluation Type of nutrition evaluation: follow-up Nutrition consult regarding: Diet Evaluation Nutrition screening: [facility] Screening comments: 01/15/18 [facility] Poor PO Intake Subjective Subjective Comments: Eating ~75% the last couple of days. Objective - Diagnosis Unspecified Psychosis - Objective [place] body weight: 81 kg % IBW: 106 Body Weight Used for Calculations: Actual (85.6kg) Energy Needs - Lower Range (kCal/kg): 22 Energy Needs - Upper Range (kCal/kg): 27 Lower Limit kCal/kg (kCals): 1,883 Upper Limit kCal/kg (kCals): 2,311 Lower Limit Protein Factor (Grams per Kg): 1.1 Upper Limit Protein Factor (Grams per Kg): 1.4 Lower Protein Needs (Protein): 94 Upper Protein Needs (Protein): 120 Fluid Factor (ml/kg): 27 Estimated Fluid Needs (ml): 2,311 Dietitian Reviewed in Medical Record: Current diet, Curent medications, Intake & Output, Labs, Medical history, Wound/DTI (Lower Extremity Edema; 01/13 WOCN note-see note in EMR) Diet Order: Objective Comments: PMH Includes: Cataracts, Fungal Infecton, Lower Extremity Edema A1C 6.4 Meds Include: Lasix, Haldol, Ativan, Seroquel, Aldactone Assessment Assessment: Pt remains at nutritional risk r/t poor po intake with some improvement in intake noted. Recommend diet change to 1999. Will continue Glucerna Shakes TID (= 220 kcal and 10g Protein per serving). [place] food preferences. Labs, wts and clinical course reviewed. Significant weight loss noted. CBW = 76 kg. Recommendations: 1. Rec diet as 2. Continue Glucerna Shakes TID 3. [place] food preferences 4. Dietitian will follow Dietitian to Monitor: Lab values, Supplement acceptance, Intake & Output, Weight change, PO Intake, Wound/skin status, Medical course
[2018-01-22] MEDS ORDERED: QUEtiapine 100 MG Tablet PO SCH (21:00)
[2018-01-23] MEDS: Spironolactone 25 MG Tablet PO SCH ×2 (08:34→18:15)
[2018-01-23] MEDS: Senna/Docusate Sodium 8.6/50 MG Tablet PO SCH ×2 (08:34→20:24)
[2018-01-23] MEDS: Furosemide 40 MG Tablet PO SCH (08:35)
[2018-01-23] MEDS: QUEtiapine 100 MG Tablet PO SCH (08:35)
[2018-01-23] MEDS: metOLazone 5 MG Tablet PO SCH (08:35)
--- NOTE | 2018-01-23 10:59 | P.PNPSY ---
Subjective Remarks: Patient seen for follow up; chart reviewed. Discussion with nursing staff reported that patient continues to be noted with some irritability. Patient was found sitting hospital chair noted B, cooperative. Patient states that he is ready to go home and that his control is from God as he was told by God today that he will be leaving today. Patient states that he wants to be L be [facility] states that he is able to stay at another residence or stay with his daughter. When advised that going home back to his daughter's home was not an option he reluctantly agreed to be transferred to another residential facility. Patient continues to endorse hearing God's voice directly and continues to have the belief that his family is working for the devil along with hospital staff. Review of Systems All other systems reviewed negative except as stated in HPI Mental Status Examination Appearance: Appropriate Consciousness: Alert Orientation: Person, Place Motor Activity: Other (No abnormal motor movements noted.) Speech: Unremarkable Language: Other (Somewhat rambling) Fund of Knowledge: Adequate Attention and Concentration: Adequate Memory: Impaired (Suspected) Mood: Irritable Affect: Irritable Thought Process & Associations: Linear Thought Content: Hallucinations, Delusional Hallucination Type: Auditory (God's voice) Delusion Type: Bizarre (Religiously preoccupied), Other (Episcopal preoccupation ) Suicidal Ideation: No Suicidal Plan: No Suicidal Intention: No Homicidal Ideation: No Homicidal Plan: No Homicidal Intention: No Insight: Poor Judgment: Poor Assessment and Plan - Assessment (1) Unspecified psychosis Code(s): F29 - Unspecified psychosis not due to a substance or known physiological condition Status: Acute - Plan Plan: Patient continues with auditory hallucinations of God's voice although not command in nature but continues to have delusions that his family works for the devil. Patient continues to have safety concerns of patient returning back to the home which at this time is not an option. Treatment he will continue to search for nursing facilities that will accept the patient for transfer upon discharge. We will continue "titrate quetiapine to 100 mg a.m./200 mg at bedtime for psychosis. Continue to monitor mood and behavior. Continue recommendations as per prior medical team. Discharge planning in progress. Justification for Continued Inpatient Stay: At risk for decompensation a lower level of care.
--- NOTE | 2018-01-23 13:14 | P.TTN ---
- Patient Problems Problems: 1. Discharge planning 2. Medication compliance 3. Knowledge deficit 4. Lack of coping skills - Progress Toward Goals Provider Present: Dr. Lluvia Calle Provider Input: : psychiatric meds undergoing titration based on pt needs. Dr. Saavedra to review notes and meet with patient. Psychiatric Counselors Present: Sandra Cotton LCSW, Jose J Busch Jr., [facility], Na Yeager, [facility] Psychiatric Therapist Input: 01/21/18: Pt's family are on record as unable to care for pt. Placement is being considered per pt financial, behavioral/ cognitive and insurance considerations. 01/12/18: Pt has not been assessed by counselor as yet. Group Spec/RT/OT/CHUNG Present: KOBY Puentes, Richie Mccall, OT Group Spec/RT/OT/CHUNG Input: 01/21/18: Pt is unable to tolerate group intactions. He is unable to participate based on his level of cognition. New pt ; no hx as yet. Other Clinican Input: 01/21/18: Counselor seeking appropriate placement based on pt finances, insurance and medical/psych needs. - Documentation Scribe: Richie Mccall, MS, OTR Teaching Recipient: Patient
--- NOTE | 2018-01-24 08:27 | P.PNPSY ---
Subjective Remarks: Patient seen for follow-up, chart reviewed. Discussion with nursing staff reported the patient continues to be irritable, but compliant with medication. Patient was found sitting in hospital chair and noted to be cooperative but irritable. Patient state he feels "great" continues report God speaking to him directly which tell him that he would have breakfast this morning and will be discharged later today. We will discussion about having patient possibly being discharged to a nursing facility he begins to state that staff and keno writer work for [employer] and that his family as well but also mentions that he loves his family. Patient denies any physical complaints at this time, denying any more bright red blood upon having bowel movement denying any constipation. Review of Systems All other systems reviewed negative except as stated in HPI Mental Status Examination Appearance: Appropriate Consciousness: Alert Orientation: Person, Place Motor Activity: Other (No abnormal motor movements noted.) Speech: Unremarkable Language: Other (Somewhat rambling) Fund of Knowledge: Adequate Attention and Concentration: Adequate Memory: Impaired (Suspected) Mood: Irritable Affect: Irritable Thought Process & Associations: Linear Thought Content: Hallucinations, Delusional Hallucination Type: Auditory (God's voice) Delusion Type: Bizarre (Religiously preoccupied), Other (Methodist preoccupation ) Suicidal Ideation: No Suicidal Plan: No Suicidal Intention: No Homicidal Ideation: No Homicidal Plan: No Homicidal Intention: No Insight: Poor Judgment: Poor Assessment and Plan - Assessment (1) Unspecified psychosis Code(s): F29 - Unspecified psychosis not due to a substance or known physiological condition Status: Acute - Plan Plan: Patient continues to endorse auditory hallucinations from the voice of God but are noncommand in nature continues to believe that staff along with his family work for [employer] and visibly upset being in the hospital involuntarily. Treatment team continues to search for appropriate placement for patient. We will continue current treatment. We will continue to monitor mood and behavior. Discharge planning in progress. Justification for Continued Inpatient Stay: At risk of further decompensation a lower level of care.
[2018-01-24] MEDS: Furosemide 40 MG Tablet PO SCH (08:55)
[2018-01-24] MEDS: Spironolactone 25 MG Tablet PO SCH ×2 (08:56→18:23)
[2018-01-24] MEDS: Senna/Docusate Sodium 8.6/50 MG Tablet PO SCH ×3 (08:56→20:34)
[2018-01-24] MEDS: metOLazone 5 MG Tablet PO SCH (08:56)
[2018-01-24] MEDS: QUEtiapine 100 MG Tablet PO SCH (08:56)
[2018-01-25] MEDS: QUEtiapine 100 MG Tablet PO SCH ×2 (08:36→10:10)
[2018-01-25] MEDS: Senna/Docusate Sodium 8.6/50 MG Tablet PO SCH ×2 (08:36→20:41)
[2018-01-25] MEDS: metOLazone 5 MG Tablet PO SCH (08:36)
[2018-01-25] MEDS: Spironolactone 25 MG Tablet PO SCH ×2 (08:36→18:01)
[2018-01-25] MEDS: Furosemide 40 MG Tablet PO SCH (08:36)
--- NOTE | 2018-01-25 09:37 | P.PNPSY ---
Subjective Remarks: Patient seen for follow-up, chart reviewed. Discussion nursing staff reported the patient had been up all night calling staff names attempt at the back itself in the bathroom but was removed from their and refuse medication last night and refusing care. Patient was found sitting in hospital bed eating breakfast noted to be irritable, stating that writer editor and nurse were Satan and that God had told him that he was in the room with him. When discussing the report by nursing staff the patient had been found with bright red blood in the bathroom and around the toilet he refused to speak about this and denied this. Patient was advised that he would be seen by the hospitalist to explore this which she refused. Review of Systems All other systems reviewed negative except as stated in HPI Mental Status Examination Appearance: Appropriate Consciousness: Alert Orientation: Person, Place Motor Activity: Other (No abnormal motor movements noted.) Speech: Unremarkable Language: Other (Somewhat rambling) Fund of Knowledge: Adequate Attention and Concentration: Adequate Memory: Impaired (Suspected) Mood: Irritable Affect: Irritable Thought Process & Associations: Linear Thought Content: Hallucinations, Delusional Hallucination Type: Auditory (God's voice) Delusion Type: Bizarre (Religiously preoccupied), Paranoid, Other (Confucianism preoccupation) Suicidal Ideation: No Suicidal Plan: No Suicidal Intention: No Homicidal Ideation: No Homicidal Plan: No Homicidal Intention: No Insight: Poor Judgment: Poor Assessment and Plan - Assessment (1) Unspecified psychosis Code(s): F29 - Unspecified psychosis not due to a substance or known physiological condition Status: Acute - Plan Plan: Patient continues with paranoia, auditory hallucination of God's voice and mosque delusions stating that everyone is a devil here at the hospital along with his family. We will continue to titrate quetiapine to 150 mg a.m./200 mg at bedtime with Haldol 5 mg IM twice daily if patient refuses p.o. meds. Continue recommendations as per hospitalist. Continue to monitor mood and behavior. Discharge planning in progress. Justification for Continued Inpatient Stay: At risk of further decompensation a lower level of care.
[2018-01-25] MEDS: Haloperidol Inj 5 MG/ML Ampul IM PRN (10:10)
[2018-01-26] MEDS: Furosemide 40 MG Tablet PO SCH (09:10)
[2018-01-26] MEDS: Spironolactone 25 MG Tablet PO SCH ×2 (09:10→17:27)
[2018-01-26] MEDS: metOLazone 5 MG Tablet PO SCH (09:11)
[2018-01-26] MEDS: Senna/Docusate Sodium 8.6/50 MG Tablet PO SCH ×2 (09:11→20:56)
--- NOTE | 2018-01-26 10:59 | P.TTN ---
- Patient Problems Problems: 1. Discharge planning 2. Medication compliance 3. Knowledge deficit 4. Lack of coping skills - Progress Toward Goals Provider Present: Dr. Lluvia Calle, Dr. Suad Saavedra Provider Input: 01/26/18: Pt psychiatric dosages continue to be titrated. Pt continues to report that others (family and staff) are "devils", pt continues with religiously. based ideations. Family is currently advising placement for pt. 01/21/18: psychiatric meds undergoing titration based on pt needs. Dr. Saavedra to review notes and meet with patient. Psychiatric Counselors Present: Sandra Cotton LCSW, Jose J Busch Jr., [facility], Na Yeager, [facility] Psychiatric Therapist Input: 01/26/18: Pt is not regularly seen by Jose J, OTR ( Richie) has limited contact with pt. Pt is on isolation precautions, placement presents as challenging. 01/21/18: Pt's family are on record as unable to care for pt. Placement is being considered per pt financial, behavioral/cognitive and insurance considerations. 01/12/18: Pt has not been assessed by counselor as yet. Group Spec/RT/OT/CHUNG Present: Renetta Clarke, [employer], Richie Mccall, OT Group Spec/RT/OT/CHUNG Input: 01/21/18: Pt is unable to tolerate group intactions. He is unable to participate based on his level of cognition. New pt ; no hx as yet. Other Clinican Input: 01/21/18: Counselor seeking appropriate placement based on pt finances, insurance and medical/psych needs. Additional Input: 01/26/18: Pt is a placement challenge, pt is currently meeting psychiatric criteria. Pt's family is concerned and advising pt placement vs home. - Documentation Scribe: Richie Mccall, MS, OTR Teaching Recipient: Patient
[2018-01-26] MEDS: QUEtiapine 100 MG Tablet PO SCH (11:11)
--- NOTE | 2018-01-26 16:50 | P.PNPSY ---
Subjective Remarks: Patient seen for follow-up, chart reviewed. Discussion with nursing staff reported that patient continues to be irritable, paranoid, and stating staff is working for the will. Patient was found ambulating on the unit earlier but interviewed in the room lying hospital bed noted be superficially cooperative and dismissive. Patient states that he is not happy that his mood has been "perfect" with a sense of sarcasm in his responses. Patient continues to state that God spoke to him today and when inquired about bizarre protestant delusions patient did not further elaborate refusing to continue to do. When asked about further episodes of bright red blood as noted in the toilet yesterday patient denies stating that there was no blood noted denying any difficulty with bowel movement but appears to be minimizing this as nursing staff had noticed yesterday with attempts to have it cleaned up which patient was reluctant to allow. Review of Systems All other systems reviewed negative except as stated in HPI Mental Status Examination Appearance: Appropriate Consciousness: Alert Orientation: Person, Place Motor Activity: Other (No abnormal motor movements noted.) Speech: Unremarkable Language: Other (Somewhat rambling) Fund of Knowledge: Adequate Attention and Concentration: Adequate Memory: Impaired (Suspected) Mood: Irritable Affect: Irritable Thought Process & Associations: Linear Thought Content: Hallucinations, Delusional Hallucination Type: Auditory (God's voice) Delusion Type: Bizarre (Religiously preoccupied), Paranoid, Other (Holiness preoccupation) Suicidal Ideation: No Suicidal Plan: No Suicidal Intention: No Homicidal Ideation: No Homicidal Plan: No Homicidal Intention: No Insight: Poor Judgment: Poor Assessment and Plan - Assessment (1) Unspecified psychosis Code(s): F29 - Unspecified psychosis not due to a substance or known physiological condition Status: Acute - Plan Plan: Patient this time continues with auditory hallucinations of God continues to have protestant and bizarre delusions that staff and family work for the will. We will continue to titrate quetiapine to 200 mg p.o. twice daily for psychosis. We will request hospitalist consult to evaluate source of noted bright red blood on the bathroom floor and on his hospital pajamas. We will order repeat CBC and complete metabolic panel. Continue to monitor mood and behavior. Discharge planning a progress. Justification for Continued Inpatient Stay: At risk of further decompensation at lower level care.
[2018-01-26 22:04] LABS: Baso # (Auto) 0.1 th/mm3 (0.0-0.2); Baso % (Auto) 1.3 % (0.0-2.0); Eos # (Auto) 0.3 th/mm3 (0.0-0.4); Eos % (Auto) 5.7 % (0.0-4.0); Hematocrit 28.3 % (39.0-51.0); Hemoglobin 9.1 gm/dL (13.0-17.0); Lymph # (Auto) 1.5 th/mm3 (1.0-4.8); Lymph % (Auto) 26.1 % (9.0-44.0); Mean Corpuscular HGB Conc 32.1 % (32.0-36.0); Mean Corpuscular Hemoglobin 29.9 pg (27.0-34.0); Mean Corpuscular Volume 93.3 fL (80.0-100.0); Mean Platelet Volume 8.1 fL (7.0-11.0); Mono # (Auto) 0.6 th/mm3 (0.0-0.9); Mono % (Auto) 10.6 % (0.0-8.0); Neut # (Auto) 3.3 th/mm3 (1.8-7.7); Neut % (Auto) 56.3 % (16.0-70.0); Platelet Count 176 th/mm3 (150-450); Red Blood Count 3.03 mil/mm3 (4.50-5.90); Red Cell Distribution Width 20.5 % (11.6-17.2); White Blood Count 5.9 th/mm3 (4.0-11.0)
[2018-01-26 22:32] LABS: Alanine Aminotransferase 19 U/L (12-78); Albumin 2.6 g/dL (3.4-5.0); Anion Gap 0 meq/L (5-15); Aspartate Aminotransferase 21 U/L (15-37); Carbon Dioxide 34.3 meq/L (21.0-32.0); Chloride 99 meq/L (98-107); Glomerular Filtration Rate 86 mL/min (>89); Glucose,Random 126 mg/dL (74-106); Potassium 3.8 meq/L (3.5-5.1); Sodium 133 meq/L (136-145)
[2018-01-26 22:38] LABS: Alkaline Phosphatase 89 U/L (45-117); Blood Urea Nitrogen 21 mg/dL (7-18); Total Protein 8.1 g/dL (6.4-8.2)
[2018-01-27] MEDS: Senna/Docusate Sodium 8.6/50 MG Tablet PO SCH ×2 (08:33→21:36)
[2018-01-27] MEDS: Furosemide 40 MG Tablet PO SCH (08:33)
[2018-01-27] MEDS: metOLazone 5 MG Tablet PO SCH (08:34)
[2018-01-27] MEDS: Spironolactone 25 MG Tablet PO SCH ×2 (08:34→18:03)
[2018-01-27 13:13] LABS: Baso # (Auto) 0.1 th/mm3 (0.0-0.2); Baso % (Auto) 2.5 % (0.0-2.0); Eos # (Auto) 0.2 th/mm3 (0.0-0.4); Eos % (Auto) 3.2 % (0.0-4.0); Hematocrit 30.8 % (39.0-51.0); Hemoglobin 9.9 gm/dL (13.0-17.0); Lymph # (Auto) 1.2 th/mm3 (1.0-4.8); Lymph % (Auto) 23.8 % (9.0-44.0); Mean Corpuscular HGB Conc 32.3 % (32.0-36.0); Mean Corpuscular Hemoglobin 29.9 pg (27.0-34.0); Mean Corpuscular Volume 92.7 fL (80.0-100.0); Mean Platelet Volume 7.8 fL (7.0-11.0); Mono # (Auto) 0.5 th/mm3 (0.0-0.9); Mono % (Auto) 9.8 % (0.0-8.0); Neut % (Auto) 60.7 % (16.0-70.0); Platelet Count 164 th/mm3 (150-450); Red Blood Count 3.32 mil/mm3 (4.50-5.90); Red Cell Distribution Width 20.2 % (11.6-17.2); White Blood Count 4.9 th/mm3 (4.0-11.0)
--- NOTE | 2018-01-27 14:31 | P.PN ---
Subjective Interval history: Reconsult for rectal bleeding. Per nursing staff, patient found with bright red blood in the bathroom as well as on his pajamas. Nursing says he defecated everywhere with loose stools and they were able to send a sample of stool off for previously ordered stool studies and occult blood. Patient denies any bleeding. He states that it was raspberry jam that the nurses saw. He denies any nausea vomiting or abdominal pain. States he has never had a colonoscopy. He says he feels great, he could run a mile right now. He denies any headache, dizziness, lightheadedness, chest pain or shortness of breath. Physical Exam Vital signs: Vital Signs 01/26/18 18:03 01/27/18 05:48 Temperature 98.2 F 97.4 F L Pulse Rate 84 79 Respiratory Rate 17 16 Blood Pressure 135/58 L 143/94 H Pulse Oximetry 93 L 94 L Intake & Output 01/26/18 01/27/18 01/27/18 18:59 06:59 18:59 Intake Total 1110 / 1110 60 / 60 960 / 960 Balance 1110 / 1110 60 / 60 960 / 960 Intake: Oral 1110 / 1110 60 / 60 960 / 960 Other: # Voids 2 Date of Last Bowel Movement 01/18/18 01/27/18 Narrative: GENERAL: This is a thin appearing, well-developed patient, in no apparent distress. Awake and alert. SKIN: Warm and dry. HEENT: Normocephalic. Pupils round. Nose without bleeding. Airway patent. NECK: Trachea midline. CARDIOVASCULAR: Regular rate and rhythm without murmurs, gallops, or rubs. RESPIRATORY: Slightly diminished bases. No wheezes, rales, or rhonchi. GASTROINTESTINAL: Abdomen soft, non-tender. Bowel Sounds normoactive x4. MUSCULOSKELETAL: Extremities without clubbing or cyanosis. Venous stasis changes. Bilateral lower extremity edema 1-2+ with mild erythema. Left lower extremity currently covered with Xeroform. NEUROLOGICAL: Awake and alert. No neurologic finding appreciated. Able to move extremities spontaneously. Normal speech. PSYCHIATRIC: Calm and cooperative Results - Labs CBC & Chem 7: 01/27/18 13:00 01/26/18 21:35 Laboratory Results - last 24 hr 01/26/18 01/26/18 01/27/18 21:35 21:35 09:30 WBC 5.9 RBC 3.03 L Hgb 9.1 L Hct 28.3 L MCV 93.3 MCH 29.9 MCHC 32.1 RDW 20.5 H Plt Count 176 MPV 8.1 Neut % (Auto) 56.3 Lymph % (Auto) 26.1 [place] % (Auto) 10.6 H Eos % (Auto) 5.7 H Baso % (Auto) 1.3 Neut # (Auto) 3.3 Lymph # (Auto) 1.5 [place] # (Auto) 0.6 Eos # (Auto) 0.3 Baso # (Auto) 0.1 WBC Differential . Differential Comment Auto diff final Sodium 133 L Potassium 3.8 Chloride 99 Carbon Dioxide 34.3 H Anion Gap 0 L BUN 21 H Creatinine 0.89 Estimated GFR 86 L Random Glucose 126 H Calcium 9.0 Total Bilirubin 0.3 AST 21 ALT 19 Alkaline Phosphatase 89 Total Protein 8.1 Albumin 2.6 L Stl C.difficile DNA Amp Positive H St C. diff Tox Epid 027 Negative 01/27/18 13:00 WBC 4.9 RBC 3.32 L Hgb 9.9 L Hct 30.8 L MCV 92.7 MCH 29.9 MCHC 32.3 RDW 20.2 H Plt Count 164 MPV 7.8 Neut % (Auto) 60.7 Lymph % (Auto) 23.8 [place] % (Auto) 9.8 H Eos % (Auto) 3.2 Baso % (Auto) 2.5 H Neut # (Auto) 3.0 Lymph # (Auto) 1.2 [place] # (Auto) 0.5 Eos # (Auto) 0.2 Baso # (Auto) 0.1 WBC Differential . Differential Comment Auto diff final Sodium Potassium Chloride Carbon Dioxide Anion Gap BUN Creatinine Estimated GFR Random Glucose Calcium Total Bilirubin AST ALT Alkaline Phosphatase Total Protein Albumin Stl C.difficile DNA Amp St C. diff Tox Epid 027 Microbiology 01/27/18 09:30 Stool Stool Occult Blood (SHAGUFTA) - Final Hemoccult negative Assessment and Plan - Assessment (1) Bilateral edema of lower extremity Code(s): R60.0 - Localized edema Status: Acute (2) Cirrhosis Code(s): K74.60 - Unspecified cirrhosis of liver Status: Acute (3) Portal hypertension Code(s): K76.6 - Portal hypertension Status: Acute (4) Hypertension Code(s): I10 - Essential (primary) hypertension Status: Acute (5) Renal insufficiency, mild Code(s): N28.9 - Disorder of kidney and ureter, unspecified Status: Acute - Plan 62 year old Male with PMHx fo Cirrhosis admitted as [place] by local police. Patient reports chronic wound, [facility]HH reconsulted for rectal bleeding ?GIB, bright red blood found in bathroom per nursing staff, patient denies, states it was raspberry jam Hgb dropped from 12.2 01/10 to 9.1, repeat stat CBC ordered and Hgb is 9.9 stool hemoccult neg -Consult GI, appreciate assistance -monitor H/H closely C diff DNA positive -follow up on results of c diff ag and toxin that are still pending -started on po Vancomycin and lactobacillus -monitor stools Lower Leg Edema/Cellulitis L>R, improved per staff Wound cx + MRSA and Serratia marcescens Doppler neg for DVT -Acute on chronic, redness likely due to edema, wound care on board and placing Xeroform -treated with doxycycline and ciprofloxacin for 7 days per ID -Wound care consulted for bilateral leg wound care management recommendation. Continue -Blood Cx obtained 01/14 no growth to date -Continue on Aldactone, Lasix, metolazone. -Leg elevation at rest Cirrhosis /incidental finding on CT of the abdomen and pelvis- no encephalopathy Hep profile neg -Portal hypertension/incidental finding from CT of the abdomen and pelvis -Cont. Aldactone 12.5 mg po bid, Lasix 40 mg daily and Metolazone -Edema BLE improved -advised on complete alcohol cessation Subclinical hypothyroidism -Free T4 within normal range. No need to treat. Outpatient repeat TSH in several weeks after discharge. Prediabetes HgbA1c 6.4 -discussed dietary modification. -may initiate Metformin when diarrhea resolves -will need to have HgbA1c rechecked in 3 months DVT prop ambulatory Code Status: Full Discussed Condition With: patient, nursing staff
--- NOTE | 2018-01-27 15:30 | P.CONGI ---
History of Present Illness Consult date: 01/27/18 Consult reason: GI bleed, bright red blood noted by nursing staff on toilet, hemoglobin dropping Chief complaint: Unspecified Psychosis History of Present Illness: Mr. Richard is a 62-year-old male patient admitted to [facility] on January 11, 2018. Patient was admitted with a diagnosis of unspecified psychosis, dementia. GI has been consulted to evaluate rectal bleeding. Nursing staff report that patient was found today with bright red blood in the bathroom as well as on his clothing. He apparently had an episode of loose stools. Patient states that he is not bleeding he denies any bleeding and states that what was seen on his clothing and in the bathroom was raspberry jam. Patient is denying any nausea, vomiting, or abdominal pain. He denies weakness fatigue, dizziness or lightheadedness. Of note patient's C. difficile toxin positive today. Patient denies ever having had an EGD or colonoscopy in the past. He reports no known family history of any gastrointestinal disorders/ diseases. He denies taking any blood thinners or the use of NSAIDs. He states he took Motrin 2 tablets 1 week ago for severe right knee pain. Patient denies any difficulty swallowing, heartburn or dyspepsia. Patient also denies ever being diagnosed with any type of GI or liver disorders. <Renetta Lora - Last Filed: 01/27/18 15:15> Review of Systems All other systems reviewed negative except as stated in HPI <Renetta Lora - Last Filed: 01/27/18 15:15> PMFSH - History History Provided By: Patient - Medical History Medical History: Medical History (Last Reviewed 01/14/18 @ 16:58 by Lupis Somers MD) Cataract Fungal infection Lower extremity edema Patient denies medical problems - Surgical History Surgical History: Surgical History (Last Reviewed 01/14/18 @ 16:58 by Lupis Somers MD) No history of previous surgery - Family History Family History: Family History (Last Reviewed 01/14/18 @ 16:58 by Lupis Somers MD) Other Family history unknown - Tobacco History Second Hand Smoke Exposure: No Tobacco Use In Past 30 Days: No Smoking Status: Never smoker Tobacco Type: Cigarettes - Alcohol History How Often Do You Have a Drink Containing Alcohol: Never - Substance Use History Substance History: No History of Abuse - Travel History Recent Travel in the [place] Within the Last 8 Weeks: No Recent Travel Out of the Country Within the Last 8 Weeks: No - Immunization History Tetanus Immunization: >5 Years Hx Influenza Vaccine This Season: Yes <Renetta Lora - Last Filed: 01/27/18 15:15> - Medical History Medical History: Medical History (Last Reviewed 01/14/18 @ 16:58 by Lupis Somers MD) Cataract Fungal infection Lower extremity edema Patient denies medical problems - Surgical History Surgical History: Surgical History (Last Reviewed 01/14/18 @ 16:58 by Lupis Somers MD) No history of previous surgery - Family History Family History: Family History (Last Reviewed 01/14/18 @ 16:58 by Lupis Somers MD) Other Family history unknown <Mary Alice Mandujano - Last Filed: 01/27/18 15:42> Medications and Allergies Active Medications: Active Medications Al Hydrox/Mg Hydrox/Simethicone (Mag-Al Plus Susp Liq) 30 ml PO Q6H PRN PRN Reason: DYSPEPSIA Al Hydroxide/Mg Hydroxide (Milk Of Magnesia Liq) 30 ml PO Q12H PRN PRN Reason: Mild Constipation Bisacodyl (Dulcolax Supp) 10 mg RECTAL DAILY PRN PRN Reason: SEVERE CONSITIPATION Diphenhydramine HCl (Benadryl) 50 mg PO HS PRN PRN Reason: INSOMNIA Last Admin: 01/23/18 20:24 Dose: 50 mg Furosemide (Lasix) 40 mg PO DAILY [facility] Last Admin: 01/27/18 08:33 Dose: 40 mg Haloperidol Lactate (Haldol Inj) 5 mg IM BID PRN PRN Reason: SEE LABEL COMMENTS Last Admin: 01/25/18 10:10 Dose: 5 mg Lactobacillus Acidophilus (Lactinex) 1 tab PO TID [facility] Lactulose (Lactulose Liq) 30 ml PO DAILY PRN PRN Reason: SEVERE CONSITIPATION Lorazepam (Ativan) 0.5 mg PO Q12HR PRN PRN Reason: ANXIETY Metolazone (Zaroxolyn) 5 mg PO DAILY [facility] Last Admin: 01/27/18 08:34 Dose: 5 mg Miscellaneous (Pill Splitter) 1 each OTHER UNSCH [facility] Potassium Chloride (K-Dur) 20 meq PO DAILY [facility] Last Admin: 01/27/18 08:33 Dose: 20 meq Quetiapine Fumarate (Seroquel) 200 mg PO HS [facility] Last Admin: 01/26/18 20:56 Dose: 200 mg Quetiapine Fumarate (Seroquel) 200 mg PO DAILY [facility] Last Admin: 01/27/18 08:33 Dose: 200 mg Senna/Docusate Sodium (Sakina-Colace) 1 tab PO BID [facility] Last Admin: 01/27/18 08:33 Dose: 1 tab Sennosides (Senokot) 17.2 mg PO Q12H PRN PRN Reason: Moderate Constipation Spironolactone (Aldactone) 12.5 mg PO BID@0900,1800 [facility] Last Admin: 01/27/18 08:34 Dose: 12.5 mg Vancomycin HCl (Vancomycin Po) 125 mg PO QID [facility] <Renetta Lora - Last Filed: 01/27/18 15:15> Active Medications: Active Medications Al Hydrox/Mg Hydrox/Simethicone (Mag-Al Plus Susp Liq) 30 ml PO Q6H PRN PRN Reason: DYSPEPSIA Al Hydroxide/Mg Hydroxide (Milk Of Magnesia Liq) 30 ml PO Q12H PRN PRN Reason: Mild Constipation Bisacodyl (Dulcolax Supp) 10 mg RECTAL DAILY PRN PRN Reason: SEVERE CONSITIPATION Diphenhydramine HCl (Benadryl) 50 mg PO HS PRN PRN Reason: INSOMNIA Last Admin: 01/23/18 20:24 Dose: 50 mg Furosemide (Lasix) 40 mg PO DAILY [facility] Last Admin: 01/27/18 08:33 Dose: 40 mg Haloperidol Lactate (Haldol Inj) 5 mg IM BID PRN PRN Reason: SEE LABEL COMMENTS Last Admin: 01/25/18 10:10 Dose: 5 mg Lactobacillus Acidophilus (Lactinex) 1 tab PO TID [facility] Lactulose (Lactulose Liq) 30 ml PO DAILY PRN PRN Reason: SEVERE CONSITIPATION Lorazepam (Ativan) 0.5 mg PO Q12HR PRN PRN Reason: ANXIETY Metolazone (Zaroxolyn) 5 mg PO DAILY [facility] Last Admin: 01/27/18 08:34 Dose: 5 mg Miscellaneous (Pill Splitter) 1 each OTHER [facility] Potassium Chloride (K-Dur) 20 meq PO DAILY [facility] Last Admin: 01/27/18 08:33 Dose: 20 meq Quetiapine Fumarate (Seroquel) 200 mg PO HS [facility] Last Admin: 01/26/18 20:56 Dose: 200 mg Quetiapine Fumarate (Seroquel) 200 mg PO DAILY [facility] Last Admin: 01/27/18 08:33 Dose: 200 mg Senna/Docusate Sodium (Sakina-Colace) 1 tab PO BID [facility] Last Admin: 01/27/18 08:33 Dose: 1 tab Sennosides (Senokot) 17.2 mg PO Q12H PRN PRN Reason: Moderate Constipation Spironolactone (Aldactone) 12.5 mg PO BID@0900,1800 [facility] Last Admin: 01/27/18 08:34 Dose: 12.5 mg Vancomycin HCl (Vancomycin Po) 125 mg PO QID [facility] <Mary Alice Mandujano - Last Filed: 01/27/18 15:42> Allergies Allergy/AdvReac Type Severity Reaction Status Date / Time Penicillins Allergy Anaphylaxis Verified 01/10/18 14:18 Sulfa (Sulfonamide Allergy Rash Verified 01/14/18 17:29 Antibiotics) codeine AdvReac Vomiting Verified 01/10/18 14:18 Exam Vital signs: Vital Signs 01/26/18 18:03 01/27/18 05:48 Temperature 98.2 F 97.4 F L Pulse Rate 84 79 Respiratory Rate 17 16 Blood Pressure 135/58 L 143/94 H Pulse Oximetry 93 L 94 L Intake & Output 01/26/18 01/27/18 01/27/18 18:59 06:59 18:59 Intake Total 1110 / 1110 60 / 60 960 / 960 Balance 1110 / 1110 60 / 60 960 / 960 Intake: Oral 1110 / 1110 60 / 60 960 / 960 Other: # Voids 2 Date of Last Bowel Movement 01/18/18 01/27/18 - Constitutional no acute distress - Routine HEENT Exam Head: Present: normocephalic - Routine Neck Exam Present: supple, full ROM - Routine Respiratory Exam Present: CTA bilaterally. Absent: accessory muscle use - Routine Cardiovascular Exam Present: RRR - Routine Abdominal Exam Present: soft, normoactive bowel sounds. Absent: tenderness, distended, guarding, firm - Routine Extremities Exam Present: full ROM, pulses intact. Absent: edema - Routine Skin Exam Present: dry, warm - Routine Neurological Exam Present: alert, normal speech <Renetta Lora - Last Filed: 01/27/18 15:15> Vital signs: Vital Signs 01/26/18 18:03 01/27/18 05:48 Temperature 98.2 F 97.4 F L Pulse Rate 84 79 Respiratory Rate 17 16 Blood Pressure 135/58 L 143/94 H Pulse Oximetry 93 L 94 L Intake & Output 01/26/18 01/27/18 01/27/18 18:59 06:59 18:59 Intake Total 1110 / 1110 60 / 60 960 / 960 Balance 1110 / 1110 60 / 60 960 / 960 Intake: Oral 1110 / 1110 60 / 60 960 / 960 Other: # Voids 2 Date of Last Bowel Movement 01/18/18 01/27/18 <Mary Alice Mandujano - Last Filed: 01/27/18 15:42> Results - Labs CBC & Chem 7: 01/27/18 13:00 01/26/18 21:35 Labs: Laboratory Results - last 24 hr 01/26/18 01/26/18 01/27/18 21:35 21:35 09:30 WBC 5.9 RBC 3.03 L Hgb 9.1 L Hct 28.3 L MCV 93.3 MCH 29.9 MCHC 32.1 RDW 20.5 H Plt Count 176 MPV 8.1 Neut % (Auto) 56.3 Lymph % (Auto) 26.1 Steele % (Auto) 10.6 H Eos % (Auto) 5.7 H Baso % (Auto) 1.3 Neut # (Auto) 3.3 Lymph # (Auto) 1.5 Steele # (Auto) 0.6 Eos # (Auto) 0.3 Baso # (Auto) 0.1 WBC Differential . Differential Comment Auto diff final Sodium 133 L Potassium 3.8 Chloride 99 Carbon Dioxide 34.3 H Anion Gap 0 L BUN 21 H Creatinine 0.89 Estimated GFR 86 L Random Glucose 126 H Calcium 9.0 Total Bilirubin 0.3 AST 21 ALT 19 Alkaline Phosphatase 89 Total Protein 8.1 Albumin 2.6 L Stl C.difficile DNA Amp Positive H St C. diff Tox Epid 027 Negative 01/27/18 13:00 WBC 4.9 RBC 3.32 L Hgb 9.9 L Hct 30.8 L MCV 92.7 MCH 29.9 MCHC 32.3 RDW 20.2 H Plt Count 164 MPV 7.8 Neut % (Auto) 60.7 Lymph % (Auto) 23.8 Steele % (Auto) 9.8 H Eos % (Auto) 3.2 Baso % (Auto) 2.5 H Neut # (Auto) 3.0 Lymph # (Auto) 1.2 Steele # (Auto) 0.5 Eos # (Auto) 0.2 Baso # (Auto) 0.1 WBC Differential . Differential Comment Auto diff final Sodium Potassium Chloride Carbon Dioxide Anion Gap BUN Creatinine Estimated GFR Random Glucose Calcium Total Bilirubin AST ALT Alkaline Phosphatase Total Protein Albumin Stl C.difficile DNA Amp St C. diff Tox Epid 027 <Renetta Lora - Last Filed: 01/27/18 15:15> - Labs CBC & Chem 7: 01/27/18 13:00 01/26/18 21:35 Labs: Laboratory Results - last 24 hr 01/26/18 01/26/18 01/27/18 21:35 21:35 09:30 WBC 5.9 RBC 3.03 L Hgb 9.1 L Hct 28.3 L MCV 93.3 MCH 29.9 MCHC 32.1 RDW 20.5 H Plt Count 176 MPV 8.1 Neut % (Auto) 56.3 Lymph % (Auto) 26.1 Steele % (Auto) 10.6 H Eos % (Auto) 5.7 H Baso % (Auto) 1.3 Neut # (Auto) 3.3 Lymph # (Auto) 1.5 Steele # (Auto) 0.6 Eos # (Auto) 0.3 Baso # (Auto) 0.1 WBC Differential . Differential Comment Auto diff final Sodium 133 L Potassium 3.8 Chloride 99 Carbon Dioxide 34.3 H Anion Gap 0 L BUN 21 H Creatinine 0.89 Estimated GFR 86 L Random Glucose 126 H Calcium 9.0 Total Bilirubin 0.3 AST 21 ALT 19 Alkaline Phosphatase 89 Total Protein 8.1 Albumin 2.6 L Stl C.difficile DNA Amp Positive H St C. diff Tox Epid 027 Negative 01/27/18 13:00 WBC 4.9 RBC 3.32 L Hgb 9.9 L Hct 30.8 L MCV 92.7 MCH 29.9 MCHC 32.3 RDW 20.2 H Plt Count 164 MPV 7.8 Neut % (Auto) 60.7 Lymph % (Auto) 23.8 Steele % (Auto) 9.8 H Eos % (Auto) 3.2 Baso % (Auto) 2.5 H Neut # (Auto) 3.0 Lymph # (Auto) 1.2 Steele # (Auto) 0.5 Eos # (Auto) 0.2 Baso # (Auto) 0.1 WBC Differential . Differential Comment Auto diff final Sodium Potassium Chloride Carbon Dioxide Anion Gap BUN Creatinine Estimated GFR Random Glucose Calcium Total Bilirubin AST ALT Alkaline Phosphatase Total Protein Albumin Stl C.difficile DNA Amp St C. diff Tox Epid 027 <Mary Alice Mandujano - Last Filed: 01/27/18 15:42> Assessment and Plan (1) GI bleed Status: Acute Code(s): K92.2 - Gastrointestinal hemorrhage, unspecified - Plan Mr. Richard is a 62-year-old male patient admitted to [facility] on January 11, 2018. Patient was admitted with a diagnosis of unspecified psychosis, dementia. GI has been consulted to evaluate rectal bleeding. Nursing staff report that patient was found today with bright red blood in the bathroom as well as on his clothing. He apparently had an episode of loose stools. Patient states that he is not bleeding he denies any bleeding and states that what was seen on his clothing and in the bathroom was raspberry jam. Patient is denying any nausea, vomiting, or abdominal pain. He denies weakness fatigue, dizziness or lightheadedness. Of note patient's C. difficile toxin positive today. Patient denies ever having had an EGD or colonoscopy in the past. He reports no known family history of any gastrointestinal disorders/ diseases. He denies taking any blood thinners or the use of NSAIDs. He states he took Motrin 2 tablets 1 week ago for severe right knee pain. Patient denies any difficulty swallowing, heartburn or dyspepsia. Patient also denies ever being diagnosed with any type of GI or liver disorders GI bleeding-01/27/2018 hemoglobin 9.9 hematocrit 30.8. May require endoscopy, continue to monitor labs. C. difficile toxin-patient positive for C. difficile toxin in stool. Endoscopy can be done when this issue is resolved. Patient currently on Lactinex and vancomycin p.o. Plan -Continue diabetic diet -Monitor for bleeding -Monitor hemoglobin and hematocrit -C. difficile toxin treatment-vancomycin -Lactinex -Supportive care -Avoid NSAIDs -Further recommendations to follow based on patient's status and findings This patient has been seen by myself and Dr. Mandujano and this note is written on his behalf - Attending Attestation Dr. 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 Started on vanc/ lactinex. Will follow. thank you The exam, history, and the medical decision-making described in the above note were completed with the assistance of the mid-level provider. I reviewed and agree with the findings presented. I attest that I had a [id number] encounter with the patient on the same day, and personally performed and documented my assessment and findings in the medical record. <Mary Alice Mandujano - Last Filed: 01/27/18 15:42>
--- NOTE | 2018-01-27 16:13 | P.PNPSY ---
Subjective Remarks: Patient seen for follow-up, chart reviewed. Discussion with nursing staff reported that patient continues to refuse to cooperate with staff but has been compliant with medications last night. Patient was found lying hospital bed noted B. Refusing to engage in interview patient states "I do want to talk to you just leave". Patient continues to deny further episodes of bleeding denies any constipation reports his mood is being "great" continues to be noted to be sarcastic during responses. Patient continues to endorse God talking to him. Review of Systems All other systems reviewed negative except as stated in HPI Mental Status Examination Appearance: Appropriate Consciousness: Alert Orientation: Person, Place Motor Activity: Other (No abnormal motor movements noted.) Speech: Unremarkable Language: Other (Somewhat rambling) Fund of Knowledge: Adequate Attention and Concentration: Adequate Memory: Impaired (Suspected) Mood: Irritable Affect: Irritable Thought Process & Associations: Linear Thought Content: Hallucinations, Delusional Hallucination Type: Auditory (God's voice) Delusion Type: Bizarre (Religiously preoccupied), Paranoid, Other (Advent preoccupation) Suicidal Ideation: No Suicidal Plan: No Suicidal Intention: No Homicidal Ideation: No Homicidal Plan: No Homicidal Intention: No Insight: Poor Judgment: Poor Assessment and Plan - Assessment (1) Unspecified psychosis Code(s): F29 - Unspecified psychosis not due to a substance or known physiological condition Status: Acute - Plan Plan: Patient continues with irritability, continues to be resistant to care. We will await hospitalist consult recommendations and evaluation for recent report of bleeding as well as noted anemia on lab results. We will continue current treatment and continue to monitor mood and behavior. Patient's daughter was updated on patient's current mental status as well as recent request for hospitalist to evaluate possible GI bleeding. Discharge planning a progress. Justification for Continued Inpatient Stay: At risk of further decompensation at lower level care.
[2018-01-27] MEDS: Lactobacillus Acidophilus/L. Spores Tablet PO SCH (18:02)
[2018-01-28 07:07] LABS: Baso # (Auto) 0.1 th/mm3 (0.0-0.2); Baso % (Auto) 2.1 % (0.0-2.0); Eos # (Auto) 0.4 th/mm3 (0.0-0.4); Eos % (Auto) 6.5 % (0.0-4.0); Hematocrit 28.7 % (39.0-51.0); Hemoglobin 9.5 gm/dL (13.0-17.0); Lymph # (Auto) 1.7 th/mm3 (1.0-4.8); Lymph % (Auto) 25.7 % (9.0-44.0); Mean Corpuscular Hemoglobin 30.3 pg (27.0-34.0); Mean Corpuscular Volume 91.7 fL (80.0-100.0); Mono # (Auto) 0.7 th/mm3 (0.0-0.9); Mono % (Auto) 10.8 % (0.0-8.0); Neut # (Auto) 3.6 th/mm3 (1.8-7.7); Neut % (Auto) 54.9 % (16.0-70.0); Platelet Count 171 th/mm3 (150-450); Red Blood Count 3.13 mil/mm3 (4.50-5.90); Red Cell Distribution Width 20.1 % (11.6-17.2); White Blood Count 6.5 th/mm3 (4.0-11.0)
--- NOTE | 2018-01-28 08:35 | P.PN ---
Subjective Interval history: Reconsult for rectal bleeding. Patient seen and examined. Patient states he feels better than he has been a very long time. He denies any fever or chills. Denies any nausea, vomiting or abdominal pain. He denies any diarrhea. States the swelling in his legs is much improved. Discussed with nursing staff , no BM overnight or this morning. Physical Exam Vital signs: Vital Signs 01/28/18 06:00 Temperature 99.4 F Pulse Rate 81 Respiratory Rate 14 Blood Pressure 133/68 Pulse Oximetry 95 Intake & Output 01/27/18 01/28/18 01/28/18 18:59 06:59 18:59 Intake Total 1080 / 1080 340 / 340 Balance 1080 / 1080 340 / 340 Intake: Oral 1080 / 1080 240 / 240 Oral Supplement 100 / 100 Other: # Voids 1 2 Date of Last Bowel Movement 01/27/18 01/27/18 Narrative: GENERAL: This is a thin appearing, well-developed patient, in no apparent distress. Awake and alert. Appears comfortable lying in hospital bed. SKIN: Warm and dry. +Dry scaling skin over bilateral lower legs. HEENT: Normocephalic. EOMI. Nose without bleeding. Airway patent. MMM. NECK: Trachea midline. CARDIOVASCULAR: Regular rate and rhythm without murmurs, gallops, or rubs. RESPIRATORY: Slightly diminished bases. No wheezes, rales, or rhonchi. GASTROINTESTINAL: Abdomen soft, non-tender. Bowel Sounds normoactive x4. MUSCULOSKELETAL: Extremities without clubbing or cyanosis. Venous stasis changes noted. Bilateral lower extremity trace edema with mild erythema noted on left lower leg. NEUROLOGICAL: Awake and alert. No neurologic finding appreciated. Able to move extremities spontaneously. Normal speech. PSYCHIATRIC: Calm and cooperative Results - Labs CBC & Chem 7: 01/28/18 06:44 01/26/18 21:35 Laboratory Results - last 24 hr 01/27/18 01/27/18 01/28/18 09:30 13:00 06:44 WBC 4.9 6.5 RBC 3.32 L 3.13 L Hgb 9.9 L 9.5 L Hct 30.8 L 28.7 L MCV 92.7 91.7 MCH 29.9 30.3 MCHC 32.3 33.0 RDW 20.2 H 20.1 H Plt Count 164 171 MPV 7.8 8.0 Neut % (Auto) 60.7 54.9 Lymph % (Auto) 23.8 25.7 [place] % (Auto) 9.8 H 10.8 H Eos % (Auto) 3.2 6.5 H Baso % (Auto) 2.5 H 2.1 H Neut # (Auto) 3.0 3.6 Lymph # (Auto) 1.2 1.7 [place] # (Auto) 0.5 0.7 Eos # (Auto) 0.2 0.4 Baso # (Auto) 0.1 0.1 WBC Differential . . Differential Comment Auto diff final Auto diff final Stl C.difficile DNA Amp Positive H St C. diff Tox Epid 027 Negative Microbiology 01/27/18 09:30 Stool Stool Occult Blood (SHAGUFTA) - Final Hemoccult negative Assessment and Plan - Assessment (1) Bilateral edema of lower extremity Code(s): R60.0 - Localized edema Status: Acute (2) Cirrhosis Code(s): K74.60 - Unspecified cirrhosis of liver Status: Acute (3) Portal hypertension Code(s): K76.6 - Portal hypertension Status: Acute (4) Hypertension Code(s): I10 - Essential (primary) hypertension Status: Acute (5) Renal insufficiency, mild Code(s): N28.9 - Disorder of kidney and ureter, unspecified Status: Acute - Plan 62 year old Male with PMHx fo Cirrhosis admitted as [place] by local police. Patient reports chronic wound, [facility] reconsulted for rectal bleeding ?GIB, bright red blood found in bathroom per nursing staff, patient denies, states it was raspberry jam Hgb dropped from 12.2 01/10 to 9.1, repeat stat CBC ordered and Hgb is 9.9 stool hemoccult neg x 2 No recurrence of bright red blood -H/H remains stable -GI following, appreciate assistance. Recommends outpatient colonoscopy. GI has signed off. -monitor H/H closely C diff DNA positive, ag positive, toxin negative -started on po Vancomycin and lactobacillus per GI -monitor stools Lower Leg Edema/Cellulitis L>R, much improved Wound cx + MRSA and Serratia marcescens Doppler neg for DVT -Acute on chronic, redness likely due to edema, wound care on board and placing Xeroform -treated with doxycycline and ciprofloxacin for 7 days per ID -Blood Cx obtained 01/14 no growth to date -Continue on Aldactone, Lasix, metolazone. -Leg elevation at rest -lac hydrin added for dry scaling skin Cirrhosis /incidental finding on CT of the abdomen and pelvis- no encephalopathy Hep profile neg -Portal hypertension/incidental finding from CT of the abdomen and pelvis -Cont. Aldactone 12.5 mg po bid, Lasix 40 mg daily and Metolazone -Edema BLE improved -advised on complete alcohol cessation Subclinical hypothyroidism -Free T4 within normal range. No need to treat. Outpatient repeat TSH in several weeks after discharge. Prediabetes HgbA1c 6.4 -discussed dietary modification. -may initiate Metformin when diarrhea resolves -will need to have HgbA1c rechecked in 3 months DVT prop ambulatory Patient appears stable from hospitalist standpoint. [facility] will sign off. Please reconsult if needed. Code Status: Full Discussed Condition With: patient, nursing staff
[2018-01-28] MEDS: metOLazone 5 MG Tablet PO SCH (09:00)
[2018-01-28] MEDS: Senna/Docusate Sodium 8.6/50 MG Tablet PO SCH ×2 (09:00→20:23)
[2018-01-28] MEDS: Furosemide 40 MG Tablet PO SCH (09:01)
[2018-01-28] MEDS: Spironolactone 25 MG Tablet PO SCH ×2 (09:01→18:05)
[2018-01-28] MEDS: Lactobacillus Acidophilus/L. Spores Tablet PO SCH ×3 (09:01→18:05)
--- NOTE | 2018-01-28 11:45 | P.PNGI ---
Subjective Interval history: Patient resting in bed, states he has not had a bowel movement in over a week. Discussed with RN who states that patient had loose but formed stool earlier today. States that he had bowel movement on the floor. There was no obvious bleeding reported. Patient denies any nausea, vomiting, abdominal pain. <Oralia Downey - Last Filed: 01/28/18 11:41> Interval history: Seen and examined with NUCLEAR EQUIPMENT DESIGN ENGINEER, no bleeding. On vancomicin for c diff. Outpatient colonoscopy recommended. FU with gi upon dc please. GI will sign off. Thank you <Mary Alice Mandujano - Last Filed: 01/28/18 14:11> Physical Exam Vital signs: Vital Signs 01/28/18 06:00 Temperature 99.4 F Pulse Rate 81 Respiratory Rate 14 Blood Pressure 133/68 Pulse Oximetry 95 Intake & Output 01/27/18 01/28/18 01/28/18 18:59 06:59 18:59 Intake Total 1080 / 1080 340 / 340 120 / 120 Balance 1080 / 1080 340 / 340 120 / 120 Intake: Oral 1080 / 1080 240 / 240 120 / 120 Oral Supplement 100 / 100 Other: # Voids 1 2 Date of Last Bowel Movement 01/27/18 01/27/18 - Constitutional no acute distress - Routine HEENT Exam Head: Present: normocephalic, atraumatic - Routine Respiratory Exam Absent: accessory muscle use - Routine Abdominal Exam Present: soft, normoactive bowel sounds. Absent: tenderness, distended - Routine Skin Exam Present: dry, warm - Routine Neurological Exam Present: alert. Absent: oriented X3 <Oralia Downey - Last Filed: 01/28/18 11:41> Vital signs: Vital Signs 01/28/18 06:00 Temperature 99.4 F Pulse Rate 81 Respiratory Rate 14 Blood Pressure 133/68 Pulse Oximetry 95 Intake & Output 01/27/18 01/28/18 01/28/18 18:59 06:59 18:59 Intake Total 1080 / 1080 340 / 340 120 / 120 Balance 1080 / 1080 340 / 340 120 / 120 Intake: Oral 1080 / 1080 240 / 240 120 / 120 Oral Supplement 100 / 100 Other: # Voids 1 2 Date of Last Bowel Movement 01/27/18 01/27/18 <Mary Alice Mandujano - Last Filed: 01/28/18 14:11> Results - Labs CBC & Chem 7: 01/28/18 06:44 01/26/18 21:35 Laboratory Results - last 24 hr 01/27/18 01/27/18 01/28/18 09:30 13:00 06:44 WBC 4.9 6.5 RBC 3.32 L 3.13 L Hgb 9.9 L 9.5 L Hct 30.8 L 28.7 L MCV 92.7 91.7 MCH 29.9 30.3 MCHC 32.3 33.0 RDW 20.2 H 20.1 H Plt Count 164 171 MPV 7.8 8.0 Neut % (Auto) 60.7 54.9 Lymph % (Auto) 23.8 25.7 Deuel % (Auto) 9.8 H 10.8 H Eos % (Auto) 3.2 6.5 H Baso % (Auto) 2.5 H 2.1 H Neut # (Auto) 3.0 3.6 Lymph # (Auto) 1.2 1.7 Deuel # (Auto) 0.5 0.7 Eos # (Auto) 0.2 0.4 Baso # (Auto) 0.1 0.1 WBC Differential . . Differential Comment Auto diff final Auto diff final Stool C.difficile Ag Positive H Stool C.difficile Toxin Negative Stl C.difficile DNA Amp Positive H St C. diff Tox Epid 027 Negative Microbiology 01/27/18 09:30 Stool Stool for WBCs - Final Moderate WBC'S 01/27/18 09:30 Stool Stool Occult Blood (SHAGUFTA) - Final Hemoccult negative <Oralia Downey - Last Filed: 01/28/18 11:41> - Labs CBC & Chem 7: 01/28/18 06:44 01/26/18 21:35 Laboratory Results - last 24 hr 01/27/18 01/27/18 01/28/18 09:30 17:16 06:44 WBC 6.5 RBC 3.13 L Hgb 9.5 L Hct 28.7 L MCV 91.7 MCH 30.3 MCHC 33.0 RDW 20.1 H Plt Count 171 MPV 8.0 Neut % (Auto) 54.9 Lymph % (Auto) 25.7 Deuel % (Auto) 10.8 H Eos % (Auto) 6.5 H Baso % (Auto) 2.1 H Neut # (Auto) 3.6 Lymph # (Auto) 1.7 Deuel # (Auto) 0.7 Eos # (Auto) 0.4 Baso # (Auto) 0.1 WBC Differential . Differential Comment Auto diff final Stool C.difficile Ag Positive H Stool C.difficile Toxin Negative RPR Nonreactive Microbiology 01/27/18 09:30 Stool Stool for WBCs - Final Moderate WBC'S 01/27/18 09:30 Stool Stool Occult Blood (SHAGUFTA) - Final Hemoccult negative <Mary Alice Mandujano - Last Filed: 01/28/18 14:11> Assessment and Plan (1) GI bleed Status: Acute Code(s): K92.2 - Gastrointestinal hemorrhage, unspecified - Plan Assessment: GI bleeding in setting of C. Diff positive stool-Reports of some BRB per nursing staff. Currently on Lactinex and oral Vancomycin (01/28) according to nursing staff patient has had formed soft stool. There has been no further reports of bleeding. H/H remained stable. Will defer colonoscopy at this time given current C. difficile. Would recommend outpatient follow-up. Continue current treatment for C. difficile including oral vancomycin and probiotics. Plan Monitor H/H Oral Vancomycin Lactinex Our service will sign off Recommend outpatient colonoscopy Have pt follow up with GI after DC This patient has been seen and examined by myself and Dr. Mandujano this note was written on his behalf <Oralia Downey - Last Filed: 01/28/18 11:41> (1) GI bleed Status: Acute Code(s): K92.2 - Gastrointestinal hemorrhage, unspecified <Mary Alice Mandujano - Last Filed: 01/28/18 14:11>
--- NOTE | 2018-01-28 12:30 | P.TTN ---
- Patient Problems Problems: 1. Discharge planning 2. Medication compliance 3. Knowledge deficit 4. Lack of coping skills - Progress Toward Goals Provider Present: Dr. Lluvia Calle, Dr. Suad Saavedra Provider Input: 01/28: Pt is compliant with medications, currently on isolation (C-Diff), exploring discharge options, d/c date dependent on medical clearance. 01/26/18: Pt psychiatric dosages continue to be titrated. Pt continues to report that others (family and staff) are "devils", pt continues with religiously. based ideations. Family is currently advising placement for pt. 01/21/18: psychiatric meds undergoing titration based on pt needs. Dr. Saavedra to review notes and meet with patient. Psychiatric Counselors Present: Sandra Cotton LCSW, Jose J Busch Jr., RUST, Na Yeager, [facility] Psychiatric Therapist Input: 01/26/18: Pt is not regularly seen by Jose J, OTR ( Richie) has limited contact with pt. Pt is on isolation precautions, placement presents as challenging. 01/21/18: Pt's family are on record as unable to care for pt. Placement is being considered per pt financial, behavioral/cognitive and insurance considerations. 01/12/18: Pt has not been assessed by counselor as yet. Group Spec/RT/OT/CHUNG Present: KOBY Puentes, Richie Mccall, OT Group Spec/RT/OT/CHUNG Input: 01/28: pt on isolation, unable to attend groups. 01/21/18: Pt is unable to tolerate group intactions. He is unable to participate based on his level of cognition. New pt; no hx as yet. Clinical Coordinator Input: 01/28: Multiple pt packets had been send out previously, new packets to be sent dianna pending medical clearance. Other Clinican Input: 01/21/18: Counselor seeking appropriate placement based on pt finances, insurance and medical/psych needs. Additional Input: 01/28: Pt is compliant with medications, currently on isolation (C-Diff), exploring discharge options, d/c date dependent on medical clearance. 01/26/18: Pt is a placement challenge, pt is currently meeting psychiatric criteria. Pt's family is concerned and advising pt placement vs home. - Documentation Scribe: Richie Mccall, MS, OTR Teaching Recipient: Patient
--- NOTE | 2018-01-28 20:17 | P.PNPSY ---
Subjective Remarks: Patient seen for follow-up, chart reviewed. Discussion with nursing staff reported that patient continues with irritability but has been compliant with treatment. Patient was found lying hospital bed refusing to engage in interview with policy writer sales today. Patient states that he does not want to speak with me to be irritable continues with poor insight. Patient denies any physical complaints at this time denying any further noted bleeding upon bowel movement continues denies ever having this despite's staff having evidence of that in his restroom. Patient was encouraged to continue recommendations. Review of Systems All other systems reviewed negative except as stated in HPI Mental Status Examination Appearance: Appropriate Consciousness: Alert Orientation: Person, Place Motor Activity: Other (No abnormal motor movements noted.) Speech: Unremarkable Language: Adequate Fund of Knowledge: Adequate Attention and Concentration: Adequate Memory: Impaired (Suspected) Mood: Irritable Affect: Irritable Thought Process & Associations: Linear Thought Content: Hallucinations, Delusional Hallucination Type: Auditory (God's voice) Delusion Type: Bizarre (Religiously preoccupied), Paranoid, Other (Methodist preoccupation) Suicidal Ideation: No Suicidal Plan: No Suicidal Intention: No Homicidal Ideation: No Homicidal Plan: No Homicidal Intention: No Insight: Poor Judgment: Poor Assessment and Plan - Assessment (1) Unspecified psychosis Code(s): F29 - Unspecified psychosis not due to a substance or known physiological condition Status: Acute - Plan Plan: Patient this time continues with irritability, continues with poor insight and continues with delusions that everyone is a devil and that God speak to him directly. We will continue current treatment. We will continue with recommendations as per prior medical team. Continue to monitor mood and behavior. Discharge planning a progress. Justification for Continued Inpatient Stay: At risk of further decompensation at lower level care.
[2018-01-28] MEDS: Lactic Acid (Ammonium Lactate) 12% Lotion 225 GM Bottle TOPICAL SCH (20:23)
[2018-01-29] MEDS: Furosemide 40 MG Tablet PO SCH (09:09)
[2018-01-29] MEDS: Spironolactone 25 MG Tablet PO SCH ×2 (09:09→17:11)
[2018-01-29] MEDS: Lactic Acid (Ammonium Lactate) 12% Lotion 225 GM Bottle TOPICAL SCH ×2 (09:10→20:58)
[2018-01-29] MEDS: metOLazone 5 MG Tablet PO SCH (09:10)
[2018-01-29] MEDS: Lactobacillus Acidophilus/L. Spores Tablet PO SCH ×3 (09:10→17:09)
[2018-01-29] MEDS: Senna/Docusate Sodium 8.6/50 MG Tablet PO SCH ×2 (09:11→20:56)
--- NOTE | 2018-01-29 18:03 | P.DIET ---
Nutritional Evaluation Type of nutrition evaluation: follow-up Nutrition consult regarding: Diet Evaluation Nutrition screening: [facility] Screening comments: 01/27/18 [facility] Diet Education 01/15/18 [facility] Poor PO Intake Subjective Subjective Comments: Pt visited in his room. Pt refuses diet education for pre-diabetes. Food preferences updated during this visit. Pt reports he is drinking the Glucerna Shakes. Objective - Diagnosis Unspecified Psychosis - Objective [place] body weight: 81 kg % IBW: 64 Body Weight Used for Calculations: Actual (85.6kg) Energy Needs - Lower Range (kCal/kg): 35 Energy Needs - Upper Range (kCal/kg): 40 Lower Limit kCal/kg (kCals): 2,240 Upper Limit kCal/kg (kCals): 2,560 Lower Limit Protein Factor (Grams per Kg): 1.4 Upper Limit Protein Factor (Grams per Kg): 1.8 Lower Protein Needs (Protein): 90 Upper Protein Needs (Protein): 115 Fluid Factor (ml/kg): 35 Estimated Fluid Needs (ml): 2,240 Dietitian Reviewed in Medical Record: Current diet, Curent medications, Intake & Output, Labs, Medical history, Wound/DTI (Lower Extremity Edema; 01/13 WOCN note-see note in EMR) Diet Order: 1800ADA Oral Diet Intake Amount: Fair 50-75% Objective Comments: PMH Includes: Cataracts, Fungal Infecton, Lower Extremity Edema A1C 6.4, Glucose 126 Meds Include: Lasix, Haldol, Ativan, Seroquel, Aldactone, Lactinex, Lactulose +C-Diff Feeding - Current PO Supplement Current Supplement: Glucerna Shake Current Frequency of Supplement: Three times a day Current kCals Provided by Supplement: 220 Current Protein Provided by Supplement: 10 Assessment Assessment: Pt remains at nutritional risk r/t poor po intake with some improvement in intake noted. Pt w/documented significant wt loss, now at 64kg. Rec diet change to 2200 ADA. Continue Glucerna Shakes TID. Continue to honor food preferences. [facility] for diet education. Pt is currently not appropriate and not receptive to diet education for diabetes at this time. Labs, wts and clinical course reviewed. Recommendations: 1. Significant wt loss; Rec diet change to 2200 ADA 2. Continue Glucerna Shakes TID 3. Continue to honor food preferences 4. [facility] for diet education: Pt is currently not appropriate and not receptive to diet education for diabetes at this time Dietitian to Monitor: Lab values, Glucose level, Supplement acceptance, Intake & Output, Weight change, PO Intake, Medical course
--- NOTE | 2018-01-29 20:48 | P.PNPSY ---
Subjective Remarks: Patient seen for follow-up, chart reviewed. Discussion with nursing staff reported that patient quiet, pleasant, calm, compliant with medications and yesterday had a couple of bowel movement that were loose. Patient was found lying hospital bed noted to be irritable and uncooperative interview stating that he refused to speak with poem writer stating that poem writer was Kristen. He denies any physical complaints denying having had blood in stools. Patient reports adequate appetite continues to endorse God speaking to him and noted to be dismissive during interview and refusing to continue to engage. Review of Systems All other systems reviewed negative except as stated in HPI Mental Status Examination Appearance: Appropriate Consciousness: Alert Orientation: Person, Place Motor Activity: Other (No abnormal motor movements noted.) Speech: Unremarkable Language: Adequate Fund of Knowledge: Adequate Attention and Concentration: Adequate Memory: Impaired (Suspected) Mood: Irritable Affect: Irritable Thought Process & Associations: Linear Thought Content: Hallucinations, Delusional Hallucination Type: Auditory (God's voice) Delusion Type: Bizarre (Religiously preoccupied), Paranoid, Other (Buddhist preoccupation) Suicidal Ideation: No Suicidal Plan: No Suicidal Intention: No Homicidal Ideation: No Homicidal Plan: No Homicidal Intention: No Insight: Poor Judgment: Poor Assessment and Plan - Assessment (1) Unspecified psychosis Code(s): F29 - Unspecified psychosis not due to a substance or known physiological condition Status: Acute - Plan Plan: Patient this time continues with delusions that poem writer and family along with hospital staff work for Satan, continues to endorse God speaking to him on a daily basis. Patient continues with irritability mostly due to prolonged hospital stay as treatment team currently exploring options for appropriate placement. Continue to monitor mood and behavior. Continue current treatment. Discharge planning a progress. Justification for Continued Inpatient Stay: At risk of further decompensation at lower level care.
[2018-01-30] MEDS: Spironolactone 25 MG Tablet PO SCH ×2 (08:20→17:28)
[2018-01-30] MEDS: Lactic Acid (Ammonium Lactate) 12% Lotion 225 GM Bottle TOPICAL SCH ×2 (08:20→21:43)
[2018-01-30] MEDS: Furosemide 40 MG Tablet PO SCH (08:20)
[2018-01-30] MEDS: Lactobacillus Acidophilus/L. Spores Tablet PO SCH ×3 (08:22→17:28)
[2018-01-30] MEDS: metOLazone 5 MG Tablet PO SCH (08:23)
[2018-01-30] MEDS: Senna/Docusate Sodium 8.6/50 MG Tablet PO SCH ×2 (08:23→21:41)
--- NOTE | 2018-01-30 17:53 | P.PNPSY ---
Subjective Remarks: Patient seen for follow-up, chart reviewed. Discussion with nursing staff reported that patient with no behavioral disturbances continue to talk to God. Patient found sitting hospital chair reportedly pleasant with staff but continues to have irritability and dismissive this provider. Patient continues to refuse to engage in prolonged interview stating that he is feeling "just fine " noted with significant sarcasm in his responses. Patient denies any physical symptoms. Patient reports eating and drinking well. Patient continues to endorse God speaking to him directly. Review of Systems All other systems reviewed negative except as stated in HPI Mental Status Examination Appearance: Appropriate Consciousness: Alert Orientation: Person, Place Motor Activity: Other (No abnormal motor movements noted.) Speech: Unremarkable Language: Adequate Fund of Knowledge: Adequate Attention and Concentration: Adequate Memory: Impaired (Suspected) Mood: Irritable Affect: Irritable Thought Process & Associations: Linear Thought Content: Hallucinations, Delusional Hallucination Type: Auditory (God's voice) Delusion Type: Bizarre (Religiously preoccupied), Paranoid, Other (Methodist preoccupation) Suicidal Ideation: No Suicidal Plan: No Suicidal Intention: No Homicidal Ideation: No Homicidal Plan: No Homicidal Intention: No Insight: Poor Judgment: Poor Assessment and Plan - Assessment (1) Unspecified psychosis Code(s): F29 - Unspecified psychosis not due to a substance or known physiological condition Status: Acute - Plan Plan: Patient this time continues with irritability and delusions regarding hospital staff and family working for Kristen. Patient continues to endorse God speaking to him directly. Patient has not had any behavioral disturbances and only noted with irritability and delusional. Continue current treatment. We will continue to monitor mood and behavior. Discharge planning a progress. Justification for Continued Inpatient Stay: At risk of further decompensation at lower level care.
[2018-01-31] MEDS: Spironolactone 25 MG Tablet PO SCH ×2 (08:22→08:34)
[2018-01-31] MEDS: Lactobacillus Acidophilus/L. Spores Tablet PO SCH ×3 (08:22→13:05)
[2018-01-31] MEDS: Furosemide 40 MG Tablet PO SCH ×2 (08:22→08:35)
[2018-01-31] MEDS: Senna/Docusate Sodium 8.6/50 MG Tablet PO SCH ×3 (08:22→20:49)
[2018-01-31] MEDS: Lactic Acid (Ammonium Lactate) 12% Lotion 225 GM Bottle TOPICAL SCH ×3 (08:23→20:49)
[2018-01-31] MEDS: metOLazone 5 MG Tablet PO SCH (08:34)
--- NOTE | 2018-01-31 18:11 | P.PNPSY ---
Subjective Remarks: Patient was seen and case discussed with nursing. Patient remains delusional and religiously preoccupied. He is calling his nurse evil and is accusing her of "doing all sorts of things." He refuses his medications believing they are poisoned. Mental Status Examination Appearance: Appropriate Consciousness: Alert Orientation: Person, Place Motor Activity: Other (No abnormal motor movements noted.) Speech: Unremarkable Language: Adequate Fund of Knowledge: Adequate Attention and Concentration: Adequate Memory: Impaired (Suspected) Mood: Irritable Affect: Irritable Thought Process & Associations: Linear Thought Content: Hallucinations, Delusional Hallucination Type: Auditory (God's voice) Delusion Type: Bizarre (Religiously preoccupied), Paranoid (Medications are poisoned), Other (Restorationism preoccupation) Suicidal Ideation: No Suicidal Plan: No Suicidal Intention: No Homicidal Ideation: No Homicidal Plan: No Homicidal Intention: No Insight: Poor Judgment: Poor Assessment and Plan - Assessment (1) Unspecified psychosis Code(s): F29 - Unspecified psychosis not due to a substance or known physiological condition Status: Acute - Plan Plan: Continue current treatment plan Justification for Continued Inpatient Stay: Patient would decompensate in a less restrictive setting
[2018-02-01] MEDS: Spironolactone 25 MG Tablet PO SCH ×2 (09:01→17:56)
[2018-02-01] MEDS: Lactobacillus Acidophilus/L. Spores Tablet PO SCH ×3 (09:01→17:56)
[2018-02-01] MEDS: Senna/Docusate Sodium 8.6/50 MG Tablet PO SCH ×2 (09:02→20:48)
[2018-02-01] MEDS: Lactic Acid (Ammonium Lactate) 12% Lotion 225 GM Bottle TOPICAL SCH ×2 (09:02→20:48)
[2018-02-01] MEDS: Furosemide 40 MG Tablet PO SCH (09:02)
[2018-02-01] MEDS: metOLazone 5 MG Tablet PO SCH (09:02)
--- NOTE | 2018-02-01 14:03 | P.PNPSY ---
Subjective Remarks: Patient was seen and case discussed with nursing. Patient remains rude and oppositional. Standing next to the door demanding to leave. Psychoeducation was done concerning medication compliance and patient became insulting and rude. Insight is very poor. Mental Status Examination Appearance: Appropriate Consciousness: Alert Orientation: Person, Place Motor Activity: Other (No abnormal motor movements noted.) Speech: Unremarkable Language: Adequate Fund of Knowledge: Adequate Attention and Concentration: Adequate Memory: Impaired (Suspected) Mood: Irritable Affect: Irritable Thought Process & Associations: Linear Thought Content: Hallucinations, Delusional Hallucination Type: Auditory (God's voice) Delusion Type: Bizarre (Religiously preoccupied), Paranoid (Medications are poisoned), Other (Presybeterian preoccupation) Suicidal Ideation: No Suicidal Plan: No Suicidal Intention: No Homicidal Ideation: No Homicidal Plan: No Homicidal Intention: No Insight: Poor Judgment: Poor Assessment and Plan - Assessment (1) Unspecified psychosis Code(s): F29 - Unspecified psychosis not due to a substance or known physiological condition Status: Acute - Plan Plan: I recommend considering IM backup of antipsychotics if he refuses to take p.o. medication Justification for Continued Inpatient Stay: Patient would decompensate in a less restrictive setting
[2018-02-02] MEDS: Lactobacillus Acidophilus/L. Spores Tablet PO SCH ×4 (09:16→17:03)
[2018-02-02] MEDS: Spironolactone 25 MG Tablet PO SCH ×3 (09:16→17:03)
[2018-02-02] MEDS: Furosemide 40 MG Tablet PO SCH (09:17)
[2018-02-02] MEDS: metOLazone 5 MG Tablet PO SCH (09:17)
[2018-02-02] MEDS: Senna/Docusate Sodium 8.6/50 MG Tablet PO SCH ×2 (09:17→21:02)
[2018-02-02] MEDS: Lactic Acid (Ammonium Lactate) 12% Lotion 225 GM Bottle TOPICAL SCH ×2 (09:17→21:02)
[2018-02-02] MEDS: Haloperidol Inj 5 MG/ML Ampul IM PRN (10:24)
--- NOTE | 2018-02-02 16:24 | P.PNPSY ---
Subjective Remarks: Patient seen for follow-up, chart reviewed. Discussion with nursing staff reported that patient had refuse medications over the weekend and attempted to exit which she was redirected back to his room. Patient was found lying hospital bed asleep noted to be irritable and reluctant to engage in interview and dismissive recently upon being seen for follow-up. Patient continues denying physical complaints at this time continues to state he talks to God but would not elaborate. Patient refused to continue interview today. Review of Systems All other systems reviewed negative except as stated in HPI Mental Status Examination Appearance: Appropriate Consciousness: Alert Orientation: Person, Place Motor Activity: Other (No abnormal motor movements noted.) Speech: Unremarkable Language: Adequate Fund of Knowledge: Adequate Attention and Concentration: Adequate Memory: Impaired (Suspected) Mood: Irritable Affect: Irritable Thought Process & Associations: Linear Thought Content: Hallucinations, Delusional Hallucination Type: Auditory (God's voice) Delusion Type: Bizarre (Religiously preoccupied), Paranoid (Medications are poisoned), Other (Buddhist preoccupation) Suicidal Ideation: No Suicidal Plan: No Suicidal Intention: No Homicidal Ideation: No Homicidal Plan: No Homicidal Intention: No Insight: Poor Judgment: Poor Assessment and Plan - Assessment (1) Unspecified psychosis Code(s): F29 - Unspecified psychosis not due to a substance or known physiological condition Status: Acute - Plan Plan: Patient continues with irritability and refusal at times to comply with treatment. Patient continues to endorse hearing God's voice but would not elaborate. Continues to be dismissive upon interview. Patient to continue current treatment, continue to monitor mood and behavior. Will order repeat labs to monitor. Discharge planning in progress. Justification for Continued Inpatient Stay: At risk of further decompensation at lower level care.
[2018-02-02 20:10] LABS: Baso # (Auto) 0.1 th/mm3 (0.0-0.2); Baso % (Auto) 1.3 % (0.0-2.0); Eos # (Auto) 0.4 th/mm3 (0.0-0.4); Eos % (Auto) 6.5 % (0.0-4.0); Hematocrit 32.8 % (39.0-51.0); Hemoglobin 10.7 gm/dL (13.0-17.0); Lymph # (Auto) 1.5 th/mm3 (1.0-4.8); Lymph % (Auto) 26.2 % (9.0-44.0); Mean Corpuscular HGB Conc 32.5 % (32.0-36.0); Mean Corpuscular Hemoglobin 29.9 pg (27.0-34.0); Mean Corpuscular Volume 91.9 fL (80.0-100.0); Mean Platelet Volume 8.4 fL (7.0-11.0); Mono # (Auto) 0.7 th/mm3 (0.0-0.9); Mono % (Auto) 12.2 % (0.0-8.0); Neut % (Auto) 53.8 % (16.0-70.0); Platelet Count 166 th/mm3 (150-450); Red Blood Count 3.57 mil/mm3 (4.50-5.90); Red Cell Distribution Width 20.3 % (11.6-17.2); White Blood Count 5.6 th/mm3 (4.0-11.0)
[2018-02-02 20:31] LABS: Alanine Aminotransferase 37 U/L (12-78)
[2018-02-02 20:34] LABS: Alkaline Phosphatase 108 U/L (45-117); Total Protein 9.4 g/dL (6.4-8.2)
[2018-02-02 20:39] LABS: Albumin 2.9 g/dL (3.4-5.0); Anion Gap 7 meq/L (5-15); Aspartate Aminotransferase 54 U/L (15-37); Blood Urea Nitrogen 46 mg/dL (7-18); Calcium 9.5 mg/dL (8.5-10.1); Carbon Dioxide 32.5 meq/L (21.0-32.0); Chloride 92 meq/L (98-107); Glomerular Filtration Rate 55 mL/min (>89); Glucose,Random 175 mg/dL (74-106); Potassium 4.6 meq/L (3.5-5.1); Sodium 131 meq/L (136-145)
[2018-02-03] MEDS: Spironolactone 25 MG Tablet PO SCH (10:26)
[2018-02-03] MEDS: Furosemide 40 MG Tablet PO SCH (10:26)
[2018-02-03] MEDS: metOLazone 5 MG Tablet PO SCH (10:27)
[2018-02-03] MEDS: Senna/Docusate Sodium 8.6/50 MG Tablet PO SCH ×2 (10:28→20:55)
[2018-02-03] MEDS: Lactic Acid (Ammonium Lactate) 12% Lotion 225 GM Bottle TOPICAL SCH (10:28)
[2018-02-03] MEDS: Lactobacillus Acidophilus/L. Spores Tablet PO SCH (10:28)
--- NOTE | 2018-02-03 12:04 | P.PNIM ---
Subjective Interval history: Hyponatremia and NYASIA, which appears related to mild dehydration, have resulted on most recent blood work. Patient with no new complaints. Etiology for hyponatremia and acute kidney injury likely related to the patient's underlying C. difficile colitis, specifically disruption of fluid balance and electrolytes from: Inflammation aspect. Physical Exam Vital signs: Vital Signs 02/03/18 06:00 Temperature 98 F Pulse Rate 84 Respiratory Rate 17 Blood Pressure 149/82 H Pulse Oximetry 94 L Intake & Output 02/02/18 02/03/18 02/03/18 18:59 06:59 18:59 Intake Total 960 / 960 240 / 240 Balance 960 / 960 240 / 240 Intake: Oral 960 / 960 240 / 240 Other: # Voids 2 # Urine Diapers 1 Date of Last Bowel Movement 01/29/18 01/29/18 Narrative: GENERAL: NAD, A&Ox3, resting comfortably no pain HEAD: Normocephalic. GASTROINTESTINAL: Abdomen soft, non-tender, nondistended. MUSCULOSKELETAL: No cyanosis, or edema. SKIN: Warm and dry. Results - Labs CBC & Chem 7: 02/02/18 17:37 02/02/18 19:37 Laboratory Results - last 24 hr 02/02/18 02/02/18 17:37 19:37 WBC 5.6 RBC 3.57 L Hgb 10.7 L Hct 32.8 L MCV 91.9 MCH 29.9 MCHC 32.5 RDW 20.3 H Plt Count 166 MPV 8.4 Neut % (Auto) 53.8 Lymph % (Auto) 26.2 Bl[place] % (Auto) 12.2 H Eos % (Auto) 6.5 H Baso % (Auto) 1.3 Neut # (Auto) 3.0 Lymph # (Auto) 1.5 [place] # (Auto) 0.7 Eos # (Auto) 0.4 Baso # (Auto) 0.1 WBC Differential . Differential Comment Auto diff final Sodium 131 L Potassium 4.6 Chloride 92 L Carbon Dioxide 32.5 H Anion Gap 7 BUN 46 H Creatinine 1.31 H Estimated GFR 55 L Random Glucose 175 H Calcium 9.5 Total Bilirubin 0.4 AST 54 H ALT 37 Alkaline Phosphatase 108 Total Protein 9.4 H D Albumin 2.9 L Assessment and Plan - Assessment (1) Bilateral edema of lower extremity Code(s): R60.0 - Localized edema Status: Acute (2) Cirrhosis Code(s): K74.60 - Unspecified cirrhosis of liver Status: Acute (3) Portal hypertension Code(s): K76.6 - Portal hypertension Status: Acute (4) Hypertension Code(s): I10 - Essential (primary) hypertension Status: Acute (5) Renal insufficiency, mild Code(s): N28.9 - Disorder of kidney and ureter, unspecified Status: Acute - Plan 62 year old Male with PMHx fo Cirrhosis admitted as [place] by local police. Original [facility] consult for rectal bleeding which ended up related to colitis from C. difficile colitis. We consulted today secondary to hyponatremia and acute kidney injury related to dehydration. Hyponatremia IV hydration with normal saline Repeat CMP in a.m. Colitis Dehydration Acute kidney injury May be related to colitis IV hydration as above Follow renal function Recent GI bleed No recurrence Follow CBC C. difficile colitis Vancomycin Continue probiotics Follow bowel movement pattern Left lower leg edema Bilateral lower extremity cellulitis Negative for DVT on previous exam Antibiotic completed Infection has resolved Continue lac hydrin for dry scaling skin Cirrhosis Cont. Aldactone 12.5 mg po bid, Lasix 40 mg daily and Metolazone advised on complete alcohol cessation Subclinical hypothyroidism TSH she has an outpatient Prediabetes HgbA1c 6.4 Resume metformin when diarrhea resolves DVT prophylaxis Ambulatory
--- NOTE | 2018-02-03 15:02 | P.DIET ---
Nutritional Evaluation Type of nutrition evaluation: follow-up Nutrition consult regarding: Diet Evaluation Nutrition screening: [facility] [facility] Screening comments: 02/03/18 [facility] Poor PO Intake; wt loss since admission 01/27/18 [facility] Diet Education 01/15/18 [facility] Poor PO Intake Subjective Subjective Comments: Per FAVIO Morejon pt po intake is poor-pt w/a few bites of food from both breakfast and lunch meals today. Discussed initiation of Calorie Count w/FAVIO Morejon. Brought forward from previous note: Pt visited in his room. Pt refuses diet education for pre-diabetes. Food preferences updated during this visit. Pt reports he is drinking the Glucerna Shakes. Objective - Diagnosis Unspecified Psychosis - Indications of Malnutrition Characteristics: Weight loss - Objective [place] body weight: 81 kg % IBW: 64 Body Weight Used for Calculations: Actual (85.6kg) Energy Needs - Lower Range (kCal/kg): 35 Energy Needs - Upper Range (kCal/kg): 40 Lower Limit kCal/kg (kCals): 2,240 Upper Limit kCal/kg (kCals): 2,560 Lower Limit Protein Factor (Grams per Kg): 1.4 Upper Limit Protein Factor (Grams per Kg): 1.8 Lower Protein Needs (Protein): 90 Upper Protein Needs (Protein): 115 Fluid Factor (ml/kg): 35 Estimated Fluid Needs (ml): 2,240 Dietitian Reviewed in Medical Record: Current diet, Curent medications, Intake & Output, Labs, Medical history, Wound/DTI (Lower Extremity Edema; 01/13 WOCN note-see note in EMR) Diet Order: 1800ADA Oral Diet Intake Amount: Fair 50-75% Objective Comments: PMH Includes: Cataracts, Fungal Infecton, Lower Extremity Edema A1C 6.4, Glucose 175(02/02/18) Meds Include: Lasix, Haldol, Ativan, Seroquel, Aldactone, Lactinex +C-Diff Feeding - Current PO Supplement Current Supplement: Glucerna Shake Current Frequency of Supplement: Three times a day Current kCals Provided by Supplement: 220 Current Protein Provided by Supplement: 10 Assessment Assessment: Pt continues at nutritional risk r/t poor po intake. Question documented po intake in the EMR r/t nursing reports less than 50% po intake for meals and documented meals in EMR are 50% or greater(?). Calorie Count started 02/03 through 10/18 w/Nutrition Recs to follow 02/06. Rec an appetite stimulant, if medically appropriate. Pt w/documented significant wt loss, 23.6kg(52-lb)since admission. Noted pt is receiving diuretics. Rec diet change to 2200 ADA. Continue Glucerna Shakes TID. Continue to honor food preferences. Brought forward from previous note: MDC for diet education-Pt is currently not appropriate and not receptive to diet education for diabetes at this time. Labs , wts and clinical course reviewed. Recommendations: 1. Question documented po intake in the EMR r/t nursing reports less than 50% po intake for meals and documented meals in EMR are 50% or greater(?) 2. Calorie Count started 02/03 through 02/05 w/Nutrition Recs to follow 02/06 3. Rec an appetite stimulant, if medically appropriate 4. Pt w/documented significant wt loss, 23.6kg(52-lb)since admission-Noted pt is receiving diuretics 5. Rec diet change to 2200 ADA 6. Continue Glucerna Shakes TID 7. Continue to honor food preferences 8. Brought forward from previous note: MDC for diet education-Pt is currently not appropriate and not receptive to diet education for diabetes at this time Dietitian to Monitor: Lab values, Glucose level, Supplement acceptance, Intake & Output, Weight change, PO Intake, Medical course
--- NOTE | 2018-02-03 15:55 | P.PNPSY ---
Subjective Remarks: Patient seen for follow up; chart reviewed. Discussion with nursing staff that patient with noted weight loss recently and refusing care recently but compliant with lab work. Patient was found lying hospital bed noted to be less irritable today but continues to be dismissive stating that God tells him the same thing every day that he will get out soon. He refused to continue interview and is mostly dismissive. Patient denies any physical complaints at this time. Review of Systems All other systems reviewed negative except as stated in HPI Mental Status Examination Appearance: Appropriate Consciousness: Alert Orientation: Person, Place Motor Activity: Other (No abnormal motor movements noted.) Speech: Unremarkable Language: Adequate Fund of Knowledge: Adequate Attention and Concentration: Adequate Memory: Impaired (Suspected) Mood: Irritable Affect: Irritable Thought Process & Associations: Linear Thought Content: Hallucinations, Delusional Hallucination Type: Auditory (God's voice) Delusion Type: Bizarre (Religiously preoccupied), Paranoid (Medications are poisoned), Other (Baptist preoccupation) Suicidal Ideation: No Suicidal Plan: No Suicidal Intention: No Homicidal Ideation: No Homicidal Plan: No Homicidal Intention: No Insight: Poor Judgment: Poor Assessment and Plan - Assessment (1) Unspecified psychosis Code(s): F29 - Unspecified psychosis not due to a substance or known physiological condition Status: Acute - Plan Plan: Patient continues with reported auditory hallucinations from the voice of God. Noted to be slightly less irritable today. We will continue current treatment. We will continue to monitor mood and behavior. Patient recent labs noted to be abnormal and hospitalist consult requested along with dietitian consult due to recent weight loss. Discharge planning a progress. Justification for Continued Inpatient Stay: At risk of further decompensation at lower level care.
[2018-02-04] MEDS: Sod Chloride 0.9% Inj 1,000 ML IV.CONT SCH ×4 (03:45→19:25)
[2018-02-04] MEDS: Lactic Acid (Ammonium Lactate) 12% Lotion 225 GM Bottle TOPICAL SCH ×3 (03:46→20:18)
[2018-02-04 08:17] LABS: Baso # (Auto) 0.1 th/mm3 (0.0-0.2); Baso % (Auto) 2.1 % (0.0-2.0); Eos # (Auto) 0.4 th/mm3 (0.0-0.4); Eos % (Auto) 7.5 % (0.0-4.0); Hematocrit 32.2 % (39.0-51.0); Hemoglobin 10.2 gm/dL (13.0-17.0); Lymph # (Auto) 1.5 th/mm3 (1.0-4.8); Mean Corpuscular HGB Conc 31.8 % (32.0-36.0); Mean Corpuscular Hemoglobin 29.7 pg (27.0-34.0); Mean Corpuscular Volume 93.3 fL (80.0-100.0); Mean Platelet Volume 8.2 fL (7.0-11.0); Mono # (Auto) 0.6 th/mm3 (0.0-0.9); Mono % (Auto) 10.8 % (0.0-8.0); Neut # (Auto) 2.7 th/mm3 (1.8-7.7); Neut % (Auto) 51.6 % (16.0-70.0); Platelet Count 143 th/mm3 (150-450); Red Blood Count 3.44 mil/mm3 (4.50-5.90); Red Cell Distribution Width 20.1 % (11.6-17.2); White Blood Count 5.3 th/mm3 (4.0-11.0)
[2018-02-04 08:34] LABS: Alanine Aminotransferase 33 U/L (12-78); Albumin 2.6 g/dL (3.4-5.0); Alkaline Phosphatase 93 U/L (45-117); Anion Gap 3 meq/L (5-15); Aspartate Aminotransferase 33 U/L (15-37); Blood Urea Nitrogen 32 mg/dL (7-18); Calcium 8.2 mg/dL (8.5-10.1); Carbon Dioxide 34.6 meq/L (21.0-32.0); Chloride 99 meq/L (98-107); Glomerular Filtration Rate 77 mL/min (>89); Glucose,Random 118 mg/dL (74-106); Potassium 3.6 meq/L (3.5-5.1); Sodium 137 meq/L (136-145); Total Protein 8.3 g/dL (6.4-8.2)
[2018-02-04] MEDS: Spironolactone 25 MG Tablet PO SCH ×3 (09:10→19:32)
[2018-02-04] MEDS: Lactobacillus Acidophilus/L. Spores Tablet PO SCH ×4 (09:10→19:32)
[2018-02-04] MEDS: Furosemide 40 MG Tablet PO SCH (09:19)
[2018-02-04] MEDS: metOLazone 5 MG Tablet PO SCH (09:20)
[2018-02-04] MEDS: Senna/Docusate Sodium 8.6/50 MG Tablet PO SCH ×2 (12:23→20:19)
--- NOTE | 2018-02-04 18:44 | P.PNIM ---
Subjective Interval history: Follow-up Hyponatremia and NYASIA. Patient seen and examined laying in bed, denies any complaints. Patient states that he is feeling better, denies any headache or dizziness, denies any pain or shortness of breath, denies any fever or chills. Patient stated his leg is getting better, denies any pain on the leg. Stated it was draining before and now is getting better. Nurse denies any complaint for the patient. Physical Exam Vital signs: Vital Signs 02/04/18 05:10 02/04/18 05:54 Temperature 98 F Pulse Rate 74 Respiratory Rate 16 Blood Pressure 175/91 H 114/82 Pulse Oximetry 96 Intake & Output 02/03/18 02/04/18 02/04/18 18:59 06:59 18:59 Intake Total 2640 / 2640 4860 / 4860 1959 Output Total Balance 2637 / 2637 4857 / 4857 1959 Intake: IV 1000 / 1000 1000 / 1000 NS Inj 1,000 ML @ 100 mls/hr IV 1000 / 1000 1000 / 1000 .CONT .Q10H MAXWELL Rx#:[id number] Oral 2640 / 2640 3360 / 3360 960 / 960 Oral Supplement 100 / 100 Other 400 / 400 Output: Urine Other: Other Intake Source Saline Solution # Voids 2 # Urine Diapers 1 Date of Last Bowel Movement 02/03/18 02/03/18 02/03/18 # Bowel Movements 3 Narrative: GENERAL: Well-developed, alert and oriented x3, in no apparent distress SKIN: Warm and dry. Left lower leg slight redness and scaliness, trace edema HEAD: Atraumatic. Normocephalic. EYES: Pupils equal and round. No scleral icterus. No injection or drainage. ENT: No nasal bleeding or discharge. Mucous membranes pink and moist. NECK: Trachea midline. No JVD. CARDIOVASCULAR: Regular rate and rhythm. RESPIRATORY: No accessory muscle use. Clear to auscultation. Breath sounds equal bilaterally. GASTROINTESTINAL: Abdomen soft, non-tender, nondistended. Hepatic and splenic margins not palpable. MUSCULOSKELETAL: Extremities without clubbing, cyanosis, or edema. No obvious deformities. NEUROLOGICAL: Awake and alert. No obvious cranial nerve deficits. Generalized weakness, moving all 4 extremities normal speech. PSYCHIATRIC: Appropriate mood and affect; insight and judgment normal. Results - Labs CBC & Chem 7: 02/04/18 07:24 02/04/18 07:24 Laboratory Results - last 24 hr 02/04/18 02/04/18 07:24 07:24 WBC 5.3 RBC 3.44 L Hgb 10.2 L Hct 32.2 L MCV 93.3 MCH 29.7 MCHC 31.8 L RDW 20.1 H Plt Count 143 L MPV 8.2 Neut % (Auto) 51.6 Lymph % (Auto) 28.0 [place] % (Auto) 10.8 H Eos % (Auto) 7.5 H Baso % (Auto) 2.1 H Neut # (Auto) 2.7 Lymph # (Auto) 1.5 [place] # (Auto) 0.6 Eos # (Auto) 0.4 Baso # (Auto) 0.1 WBC Differential . Differential Comment Auto diff final Sodium 137 Potassium 3.6 D Chloride 99 Carbon Dioxide 34.6 H Anion Gap 3 L BUN 32 H Creatinine 0.98 Estimated GFR 77 L Random Glucose 118 H Calcium 8.2 L D Total Bilirubin 0.3 AST 33 ALT 33 Alkaline Phosphatase 93 Total Protein 8.3 H D Albumin 2.6 L Assessment and Plan - Assessment (1) Bilateral edema of lower extremity Code(s): R60.0 - Localized edema Status: Acute (2) Cirrhosis Code(s): K74.60 - Unspecified cirrhosis of liver Status: Acute (3) Portal hypertension Code(s): K76.6 - Portal hypertension Status: Acute (4) Hypertension Code(s): I10 - Essential (primary) hypertension Status: Acute (5) Renal insufficiency, mild Code(s): N28.9 - Disorder of kidney and ureter, unspecified Status: Acute - Plan This is a 62 years old male with who denies any past medical history other than the lower leg edema and chronic wound, stated had "fungal infection from the war in [place]", and cataract. Patient presents to the emergency department under [place] act by local police, reported refusing treatment for the swollen legs, having delusional thoughts, talking to God, walking in the house without any underpants, fell 5 times before the admission. Patient is admitted in the psychiatric unit for management and treatment. Medicine team is consulted for lower extremity edema and medical management. Left lower leg edema and redness/left leg cellulitis Acute on chronic, redness likely due to edema -Venous Doppler negative for bilateral lower extremity deep venous thrombosis -Status post antibiotic treatment -Wound care consult for bilateral leg wound care management -Elevate lower extremities while in the chair or bed -Start on Lasix and potassium -Monitor BMP -Moisturize bilateral lower leg extremities Cirrhosis /incidental finding on CT of the abdomen and pelvis -Check for hepatitis profile -Liver US: Mild dilatation of the common bile duct at 8 mm. MRCP could be performed for further evaluation if clinically indicated. -Monitor LFT, check lipid panel -Continue Aldactone, metolazone and Lasix -Education and counseling on alcohol cessation Hypertension Portal hypertension/incidental finding from CT of the abdomen and pelvis -Monitor blood pressure -Monitor for signs and symptoms Renal insufficiency/hypokalemia/hyponatremia likely related to hypertension/metabolic in nature -Monitor BMP, hemoglobin A1c 6.4 -Avoid nephrotoxic -Replace potassium -IV hydration with normal saline -Monitor CMP Subclinical hypothyroidism Monitor TSH Status post fall at home -Cervical spine CT without evidence of fracture -Head CT negative -Chest x-ray negative DVT prophylaxis: Increase ambulation Code Status: Full code Discussed Condition With: Patient and nurse
--- NOTE | 2018-02-04 22:33 | P.PNPSY ---
Subjective Remarks: Patient seen for follow-up, chart reviewed. Discussion with nursing staff reported that patient take medications this morning and son had visited last evening as well as this morning. Patient was found lying hospital bed with IV line in place and receiving IV fluids. Patient noted to be, less irritable today. Patient states having visited by his son which went well but did not elaborate. Patient continues report God telling him that he will be out a few days but did not further elaborate on this. Review of Systems All other systems reviewed negative except as stated in HPI Mental Status Examination Appearance: Appropriate Consciousness: Alert Orientation: Person, Place Motor Activity: Other (No abnormal motor movements noted.) Speech: Unremarkable Language: Adequate Fund of Knowledge: Adequate Attention and Concentration: Adequate Memory: Impaired (Suspected) Mood: Irritable (Lessening) Affect: Irritable (Lessening) Thought Process & Associations: Linear Thought Content: Hallucinations, Delusional Hallucination Type: Auditory (God's voice) Delusion Type: Bizarre (Religiously preoccupied), Paranoid (Medications are poisoned), Other (Mandaeism preoccupation) Suicidal Ideation: No Suicidal Plan: No Suicidal Intention: No Homicidal Ideation: No Homicidal Plan: No Homicidal Intention: No Insight: Poor Judgment: Poor Assessment and Plan - Assessment (1) Unspecified psychosis Code(s): F29 - Unspecified psychosis not due to a substance or known physiological condition Status: Acute - Plan Plan: Patient noted to have less irritability, compliant with treatment no. Patient has some visit there was mention of developing more abdominal planning to visit with him. We will continue to monitor mood and behavior. Discharge planning in progress. Justification for Continued Inpatient Stay: At risk of further decompensation at lower level care.
[2018-02-05] MEDS: Sod Chloride 0.9% Inj 1,000 ML IV.CONT SCH ×2 (03:02→15:19)
--- NOTE | 2018-02-05 08:17 | P.PNIM ---
Subjective Interval history: Follow-up Hyponatremia, NYASIA, left leg cellulitis/MRSA. Patient seen and examined sitting on the side of the bed, eating breakfast. Patient stated feeling better, denies any pain or shortness of breath, denies any headache or dizziness, denies any abdominal pain, nausea, vomiting, diarrhea or constipation. Patient denies any fever or chills. Patient stated he is feeling better overall, stated his left leg wound has been there for a while since the bed no more which is Pseudomonas at that time. States that it has been getting better but is coming on and off since then. Patient encouraged to increase fluid intake, and increase fluid intake. Physical Exam Vital signs: Vital Signs 02/04/18 18:47 02/05/18 05:51 Temperature 97.4 F L 97.7 F Pulse Rate 76 79 Respiratory Rate 16 16 Blood Pressure 141/69 H 152/73 H Pulse Oximetry 95 93 L Intake & Output 02/04/18 02/05/18 02/05/18 18:59 06:59 18:59 Intake Total 1959 3440 / 3440 120 / 120 Balance 1959 3440 / 3440 120 / 120 Intake: IV 1000 / 1000 1100 / 1100 NS Inj 1,000 ML @ 100 mls/hr IV 1000 / 1000 1100 / 1100 .CONT .Q10H [facility] Rx#:[id number] Oral 960 / 960 840 / 840 120 / 120 Other 1500 / 1500 Other: Other Intake Source Saline Solution # Voids 1 Date of Last Bowel Movement 02/03/18 Narrative: GENERAL: Well-developed, alert and oriented x3, in no apparent distress SKIN: Warm and dry. Left lower leg slight redness and extra dry skin/scaliness , trace edema HEAD: Atraumatic. Normocephalic. EYES: Pupils equal and round. No scleral icterus. No injection or drainage. ENT: No nasal bleeding or discharge. Mucous membranes pink and moist. NECK: Trachea midline. No JVD. CARDIOVASCULAR: Regular rate and rhythm. RESPIRATORY: No accessory muscle use. Clear to auscultation. Breath sounds equal bilaterally. GASTROINTESTINAL: Abdomen soft, non-tender, nondistended. Hepatic and splenic margins not palpable. MUSCULOSKELETAL: Extremities without clubbing, cyanosis, or edema. No obvious deformities. NEUROLOGICAL: Awake and alert. No obvious cranial nerve deficits. Generalized weakness, moving all 4 extremities. Normal speech. PSYCHIATRIC: Appropriate mood and affect; insight and judgment poor . Results - Labs CBC & Chem 7: 02/04/18 07:24 02/04/18 07:24 Laboratory Results - last 24 hr 02/04/18 02/04/18 07:24 07:24 WBC 5.3 RBC 3.44 L Hgb 10.2 L Hct 32.2 L MCV 93.3 MCH 29.7 MCHC 31.8 L RDW 20.1 H Plt Count 143 L MPV 8.2 Neut % (Auto) 51.6 Lymph % (Auto) 28.0 [place] % (Auto) 10.8 H Eos % (Auto) 7.5 H Baso % (Auto) 2.1 H Neut # (Auto) 2.7 Lymph # (Auto) 1.5 [place] # (Auto) 0.6 Eos # (Auto) 0.4 Baso # (Auto) 0.1 WBC Differential . Differential Comment Auto diff final Sodium 137 Potassium 3.6 D Chloride 99 Carbon Dioxide 34.6 H Anion Gap 3 L BUN 32 H Creatinine 0.98 Estimated GFR 77 L Random Glucose 118 H Calcium 8.2 L D Total Bilirubin 0.3 AST 33 ALT 33 Alkaline Phosphatase 93 Total Protein 8.3 H D Albumin 2.6 L Assessment and Plan - Assessment (1) Bilateral edema of lower extremity Code(s): R60.0 - Localized edema Status: Acute (2) Cirrhosis Code(s): K74.60 - Unspecified cirrhosis of liver Status: Acute (3) Portal hypertension Code(s): K76.6 - Portal hypertension Status: Acute (4) Hypertension Code(s): I10 - Essential (primary) hypertension Status: Acute (5) Renal insufficiency, mild Code(s): N28.9 - Disorder of kidney and ureter, unspecified Status: Acute - Plan This is a 62 years old male with who denies any past medical history other than the lower leg edema and chronic wound, stated had "fungal infection from the war in [place]", and cataract. Patient presents to the emergency department under [place] act by local police, reported refusing treatment for the swollen legs, having delusional thoughts, talking to God, walking in the house without any underpants, fell 5 times before the admission. Patient is admitted in the psychiatric unit for management and treatment. Medicine team is consulted for lower extremity edema and medical management. Left lower leg edema and redness/left leg cellulitis/MRSA Acute on chronic, redness likely due to edema -Venous Doppler negative for bilateral lower extremity deep venous thrombosis -Status post antibiotic treatment -Wound care consult for bilateral leg wound care management -Elevate lower extremities while in the chair or bed -Start on Lasix and potassium -Monitor BMP -Moisturize bilateral lower leg extremities Cirrhosis /incidental finding on CT of the abdomen and pelvis -Hepatitis profile- nonreactive -Liver US: Mild dilatation of the common bile duct at 8 mm. MRCP could be performed for further evaluation if clinically indicated. -LFT improving, monitor -Lipid panel unremarkable -Education and counseling on alcohol cessation -Continue Aldactone, metolazone and Lasix, monitor BMP Hypertension, uncontrolled Portal hypertension/incidental finding from CT of the abdomen and pelvis -Monitor blood pressure -Monitor for signs and symptoms -continue Lasix, increase spironolactone, decrease KCl supplement -Monitor BMP Renal insufficiency/hypokalemia/hyponatremia likely related to hypertension/metabolic in nature -Monitor BMP, hemoglobin A1c 6.4 -Avoid nephrotoxic -Replace potassium -IV hydration with normal saline -Monitor CMP Subclinical hypothyroidism Monitor TSH/free T4 Status post fall at home -Cervical spine CT without evidence of fracture -Head CT negative -Chest x-ray negative Possible history of C. difficile Recent diarrhea, resolved Stool PCR AG positive/toxin negative -On vancomycin p.o. per GI recommendation, will discontinue if GI agrees -monitor DVT prophylaxis: Increase ambulation/out of bed Code Status: Full code Discussed Condition With: Patient and nurse
--- NOTE | 2018-02-05 08:48 | P.TTN ---
- Patient Problems Problems: 1. Discharge planning 2. Medication compliance 3. Knowledge deficit 4. Lack of coping skills - Progress Toward Goals Provider Present: Dr. Lluvia Calle, Dr. Suad Saavedra Provider Input: 02/04/2018; per doctor patient is noncompliant with medication; meds are being adjusted to address pt's mood and aggressive behavior. 01/28: Pt is compliant with medications, currently on isolation (C-Diff), exploring discharge options, d/c date dependent on medical clearance. 01/26/18: Pt psychiatric dosages continue to be titrated. Pt continues to report that others (family and staff) are "devils", pt continues with religiously. based ideations. Family is currently advising placement for pt. 01/21/18: psychiatric meds undergoing titration based on pt needs. Dr. Saavedra to review notes and meet with patient. Nurse(s) Present: RN Nurse Input: 02/04/2018; per RN patient requires ETO's due to agitated and aggressive mood. Pt is eating meals and at times compliant with medication Psychiatric Counselors Present: Sandra Cotton LCSW, Jose J Busch Jr., [facility], Na Yeager, [facility] Psychiatric Therapist Input: 02/04/2018; Counselor will continue exploring appropriate placement options; patient is unable to return to the home of family and has limited income with no medicare and only medicaid share of cost. 01/26/18: Pt is not regularly seen by Jose J, OTR (Richie) has limited contact with pt. Pt is on isolation precautions, placement presents as challenging. 01/21/18: Pt's family are on record as unable to care for pt. Placement is being considered per pt financial, behavioral/cognitive and insurance considerations. 01/12/18: Pt has not been assessed by counselor as yet. Group Spec/RT/OT/CHUNG Present: Renetta Clarke, K[facility], Richie Mccall, OT Group Spec/RT/OT/CHUNG Input: 02/04/2018; per OT patient is resisted with group and activity participation. 01/28: pt on isolation, unable to attend groups. 01/21/18: Pt is unable to tolerate group intactions. He is unable to participate based on his level of cognition. New pt; no hx as yet. Clinical Coordinator Input: 01/28: Multiple pt packets had been send out previously, new packets to be sent dianna pending medical clearance. Other Clinican Input: 01/21/18: Counselor seeking appropriate placement based on pt finances, insurance and medical/psych needs. Additional Input: 01/28: Pt is compliant with medications, currently on isolation (C-Diff), exploring discharge options, d/c date dependent on medical clearance. 01/26/18: Pt is a placement challenge, pt is currently meeting psychiatric criteria. Pt's family is concerned and advising pt placement vs home. - Documentation Scribe: Richie Mccall MS, OTR Teaching Recipient: Patient
[2018-02-05] MEDS: Spironolactone 25 MG Tablet PO SCH ×2 (09:04→15:18)
[2018-02-05] MEDS: Senna/Docusate Sodium 8.6/50 MG Tablet PO SCH ×2 (09:05→20:25)
[2018-02-05] MEDS: Lactobacillus Acidophilus/L. Spores Tablet PO SCH ×2 (09:05→15:19)
[2018-02-05] MEDS: Furosemide 40 MG Tablet PO SCH (09:05)
[2018-02-05] MEDS: metOLazone 5 MG Tablet PO SCH (09:05)
[2018-02-05] MEDS: Lactic Acid (Ammonium Lactate) 12% Lotion 225 GM Bottle TOPICAL SCH ×2 (09:06→20:25)
--- NOTE | 2018-02-05 19:06 | P.PNPSY ---
Subjective Remarks: Patient seen for follow-up, chart reviewed. Discussion with nursing staff reported that patient patient with no behavioral disturbances, sleeping at night. Patient was found lying in hospital bed noted to be calm and superficially cooperative continues to be irritable toward conventional underwriter but noted to be pleasant and cooperative with staff. Patient states that he is doing "just fine" stating that he is feeling a difference since admission, denying any physical pain no complaints at this time denying any loose stools or blood in his stools. Patient states he is able to ambulate without any difficulty states that his mood is "fine". Patient states that he continues to hear the voice of God telling him that he will be discharged soon denying any further elaboration on content related to his previous delusion of family in relation to Satan. Review of Systems All other systems reviewed negative except as stated in HPI Mental Status Examination Appearance: Appropriate Consciousness: Alert Orientation: Person, Place Motor Activity: Other (No abnormal motor movements noted.) Speech: Unremarkable Language: Adequate Fund of Knowledge: Adequate Attention and Concentration: Adequate Memory: Impaired (Suspected) Mood: Irritable (Lessening) Affect: Irritable (Lessening) Thought Process & Associations: Linear Thought Content: Hallucinations, Delusional Hallucination Type: Auditory (God's voice) Delusion Type: Bizarre (Religiously preoccupied), Paranoid (Medications are poisoned), Other (Confucianist preoccupation) Suicidal Ideation: No Suicidal Plan: No Suicidal Intention: No Homicidal Ideation: No Homicidal Plan: No Homicidal Intention: No Insight: Poor Judgment: Poor Assessment and Plan - Assessment (1) Unspecified psychosis Code(s): F29 - Unspecified psychosis not due to a substance or known physiological condition Status: Acute - Plan Plan: Patient this time noted to be less irritable and cooperative with staff although continues to be dismissive with conventional underwriter. Patient not endorsing any bizarre delusions or illusions delusions but continues to report that God speaks to him telling him he will be discharged home. Patient noted with weight loss since admission pending dietitian recommendations as well as we will request physical therapy consult for evaluation. Continue current treatment. Continue to monitor mood and behavior. Discharge planning in progress. Justification for Continued Inpatient Stay: At risk of further decompensation at lower level care.
[2018-02-06] MEDS: Sod Chloride 0.9% Inj 1,000 ML IV.CONT SCH ×3 (02:33→10:45)
--- NOTE | 2018-02-06 08:29 | P.PNIM ---
Subjective Interval history: Follow-up Hyponatremia, NYASIA, left leg cellulitis/MRSA Denies any diarrhea, abdominal pain, nausea or vomiting Patient stated eating well and drinking well Denies any pain, chest pain or SOB, denies any fever or chills. Physical Exam Vital signs: Vital Signs 02/06/18 04:32 Temperature 99.1 F Pulse Rate 76 Respiratory Rate 15 Blood Pressure 102/58 L Pulse Oximetry 97 Intake & Output 02/05/18 02/06/18 02/06/18 18:59 06:59 18:59 Intake Total 1720 / 1720 1600 / 1600 480 / 480 Balance 1720 / 1720 1600 / 1600 480 / 480 Intake: IV 1000 / 1000 1000 / 1000 NS Inj 1,000 ML @ 100 mls/hr IV 1000 / 1000 1000 / 1000 .CONT .Q10H [facility] Rx#:[id number] Oral 720 / 720 600 / 600 480 / 480 Other: # Voids 1 Date of Last Bowel Movement 02/03/18 Narrative: GENERAL: Well-developed, alert and oriented x3, in no apparent distress SKIN: Warm and dry. Left lower leg slight redness and extra dry skin/scaliness , trace edema HEAD: Atraumatic. Normocephalic. EYES: Pupils equal and round. No scleral icterus. No injection or drainage. ENT: No nasal bleeding or discharge. Mucous membranes pink and moist. NECK: Trachea midline. No JVD. CARDIOVASCULAR: Regular rate and rhythm. RESPIRATORY: No accessory muscle use. Clear to auscultation. Breath sounds equal bilaterally. GASTROINTESTINAL: Abdomen soft, non-tender, nondistended. Hepatic and splenic margins not palpable. MUSCULOSKELETAL: Extremities without clubbing, cyanosis, or edema. No obvious deformities. NEUROLOGICAL: Awake and alert. No obvious cranial nerve deficits. Generalized weakness, moving all 4 extremities. Normal speech. PSYCHIATRIC: Appropriate mood and affect; insight and judgment poor . Results - Labs CBC & Chem 7: 02/04/18 07:24 02/06/18 07:16 Assessment and Plan - Assessment (1) Bilateral edema of lower extremity Code(s): R60.0 - Localized edema Status: Acute (2) Cirrhosis Code(s): K74.60 - Unspecified cirrhosis of liver Status: Acute (3) Portal hypertension Code(s): K76.6 - Portal hypertension Status: Acute (4) Hypertension Code(s): I10 - Essential (primary) hypertension Status: Acute (5) Renal insufficiency, mild Code(s): N28.9 - Disorder of kidney and ureter, unspecified Status: Acute - Plan This is a 62 years old male with who denies any past medical history other than the lower leg edema and chronic wound, stated had "fungal infection from the war in [place]", and cataract. Patient presents to the emergency department under [place] act by local police, reported refusing treatment for the swollen legs, having delusional thoughts, talking to God, walking in the house without any underpants, fell 5 times before the admission. Patient is admitted in the psychiatric unit for management and treatment. Medicine team is consulted for lower extremity edema and medical management. Left lower leg edema and redness/left leg cellulitis/MRSA Acute on chronic, redness likely due to edema -Venous Doppler negative for bilateral lower extremity deep venous thrombosis -Status post antibiotic treatment -Wound care consult for bilateral leg wound care management -Elevate lower extremities while in the chair or bed -Start on Lasix and potassium -Monitor BMP -Moisturize bilateral lower leg extremities Cirrhosis /incidental finding on CT of the abdomen and pelvis -Hepatitis profile- nonreactive -Liver US: Mild dilatation of the common bile duct at 8 mm. MRCP could be performed for further evaluation if clinically indicated. -LFT improving, monitor -Lipid panel unremarkable -Education and counseling on alcohol cessation -Continue Aldactone, metolazone and Lasix, monitor BMP Hypertension, uncontrolled Portal hypertension/incidental finding from CT of the abdomen and pelvis -Monitor blood pressure -Monitor for signs and symptoms -continue Lasix, increase spironolactone, decrease KCl supplement -Monitor BMP Renal insufficiency/hypokalemia/hyponatremia likely related to hypertension/metabolic in nature -Monitor BMP, hemoglobin A1c 6.4 -Avoid nephrotoxic -Replace potassium -discontinue IVF, patient improved in PO intake -Monitor CMP Subclinical hypothyroidism Monitor TSH/free T4 Status post fall at home -Cervical spine CT without evidence of fracture -Head CT negative -Chest x-ray negative Possible history of C. difficile Recent diarrhea, no diarrhea for over a week Stool PCR AG positive/toxin negative -On vancomycin p.o. per GI recommendation, continue x 14 days total -monitor DVT prophylaxis: Increase ambulation/out of bed Code Status: full code Discussed Condition With: patient, nurse and Dr. Saavedra
[2018-02-06 08:45] LABS: Anion Gap 4 meq/L (5-15); Blood Urea Nitrogen 20 mg/dL (7-18); Calcium 8.4 mg/dL (8.5-10.1); Chloride 101 meq/L (98-107); Glomerular Filtration Rate Greater Than 89 mL/min (>89); Glucose,Random 111 mg/dL (74-106); Potassium 3.8 meq/L (3.5-5.1); Sodium 138 meq/L (136-145)
[2018-02-06] MEDS: Lactobacillus Acidophilus/L. Spores Tablet PO SCH ×3 (09:12→17:57)
[2018-02-06] MEDS: Lactic Acid (Ammonium Lactate) 12% Lotion 225 GM Bottle TOPICAL SCH ×2 (09:13→20:53)
[2018-02-06] MEDS: Senna/Docusate Sodium 8.6/50 MG Tablet PO SCH ×2 (09:13→20:54)
[2018-02-06] MEDS: metOLazone 5 MG Tablet PO SCH (09:13)
[2018-02-06] MEDS: Furosemide 40 MG Tablet PO SCH (09:13)
[2018-02-06] MEDS: Spironolactone 25 MG Tablet PO SCH ×2 (09:23→17:57)
--- NOTE | 2018-02-06 12:51 | P.DIET ---
Nutritional Evaluation Type of nutrition evaluation: follow-up Nutrition consult regarding: Diet Evaluation Nutrition screening: [facility] Screening comments: 02/03/18 [facility] Poor PO Intake; wt loss since admission 01/27/18 [facility] Diet Education 01/15/18 [facility] Poor PO Intake Subjective Subjective Comments: Pt w/50% po intake for breakfast today and eating lunch when visited. Calorie Count Envelope w/one meal ticket only. Brought forward from previous note: Pt visited in his room. Pt refuses diet education for pre-diabetes. Food preferences updated during this visit. Pt reports he is drinking the Glucerna Shakes. Objective - Diagnosis Unspecified Psychosis - Indications of Malnutrition Characteristics: Weight loss - Objective [place] body weight: 81 kg % IBW: 64 Body Weight Used for Calculations: Actual (85.6kg) Energy Needs - Lower Range (kCal/kg): 35 Energy Needs - Upper Range (kCal/kg): 40 Lower Limit kCal/kg (kCals): 2,240 Upper Limit kCal/kg (kCals): 2,560 Lower Limit Protein Factor (Grams per Kg): 1.4 Upper Limit Protein Factor (Grams per Kg): 1.8 Lower Protein Needs (Protein): 90 Upper Protein Needs (Protein): 115 Fluid Factor (ml/kg): 35 Estimated Fluid Needs (ml): 2,240 Dietitian Reviewed in Medical Record: Current diet, Curent medications, Intake & Output, Labs, Medical history, Wound/DTI (Lower Extremity Edema; 01/13 [facility] note-see note in EMR) Diet Order: 2200 Oral Diet Intake Amount: Fair 50-75% Objective Comments: PMH Includes: Cataracts, Fungal Infecton, Lower Extremity Edema A1C 6.4, Glucose 111 Meds Include: Lasix, Haldol, Ativan, Seroquel, Aldactone, Lactinex +C-Diff Feeding - Current PO Supplement Current Supplement: Glucerna Shake Current Frequency of Supplement: Three times a day Current kCals Provided by Supplement: 220 Current Protein Provided by Supplement: 10 Assessment Assessment: Pt continues at nutritional risk r/t poor po intake. Calorie Count INCOMPLETE w /only one meal documented-discussed w/ FAVIO Madrigal and Nursing Staff. Calorie Count re-started 02/06 through 02/09. Rec an appetite stimulant, if medically appropriate. Pt w/documented significant wt loss, 24.3kg(53-lb)since admission. Noted pt is receiving diuretics. Agree w/2199 ADA diet. Continue Glucerna Shakes TID. Continue to honor food preferences. Brought forward from previous note: MDC for diet education-Pt is currently not appropriate and not receptive to diet education for diabetes at this time. Labs, wts and clinical course reviewed. Recommendations: 1. Calorie Count INCOMPLETE w/only one meal documented 2. Calorie Count re-started 02/06 through 02/09 3. Rec an appetite stimulant, if medically appropriate 4. Pt w/documented significant wt loss, 24.3kg(53-lb)since admission-Noted pt is receiving diuretics 5. Agree w/2199 ADA diet 6. Continue Glucerna Shakes TID 7. Continue to honor food preferences 8. Brought forward from previous note: MDC for diet education-Pt is currently not appropriate and not receptive to diet education for diabetes at this time Dietitian to Monitor: Lab values, Glucose level, Supplement acceptance, Intake & Output, Weight change, PO Intake, Medical course
--- NOTE | 2018-02-06 14:32 | P.PNPSY ---
Subjective Remarks: Patient seen for follow-up, chart reviewed. Discussion with nursing staff reported that patient continued with vancomycin and will continue up to the of this month noted to be less irritable. Patient was found sitting in hospital bed after having breakfast noted B, cooperative. Patient state he took a shower, noted to be slightly less irritable with adjusto writer operator today stating that he denies any physical complaints and is feeling the same as he did when he first arrived. Patient denies any difficulty or bowel movement denies any loose stools denies any blood in stools. Patient reports his mood is "great" and states that he continue to talk to God, and that his son will be picking him up today to take him to a home. Review of Systems All other systems reviewed negative except as stated in HPI Mental Status Examination Appearance: Appropriate Consciousness: Alert Orientation: Person, Place Motor Activity: Other (No abnormal motor movements noted.) Speech: Unremarkable Language: Adequate Fund of Knowledge: Adequate Attention and Concentration: Adequate Memory: Impaired (Suspected) Mood: Irritable (Lessening) Affect: Irritable (Lessening) Thought Process & Associations: Linear Thought Content: Hallucinations, Delusional Hallucination Type: Auditory (God's voice) Delusion Type: Bizarre (Religiously preoccupied), Paranoid (Medications are poisoned), Other (Oriental Orthodox preoccupation) Suicidal Ideation: No Suicidal Plan: No Suicidal Intention: No Homicidal Ideation: No Homicidal Plan: No Homicidal Intention: No Insight: Poor Judgment: Poor Assessment and Plan - Assessment (1) Unspecified psychosis Code(s): F29 - Unspecified psychosis not due to a substance or known physiological condition Status: Acute - Plan Plan: Patient continues with slight irritability but likely mostly directed toward adjusto writer operator as staff is reported patient be more pleasant recently. Patient to continue vancomycin as recommended by primary medical team. Patient to work with physical therapy. We will continue to monitor mood and behavior. We will continue current treatment. Discharge planning in progress. Justification for Continued Inpatient Stay: At risk of further decompensation at lower level care.
[2018-02-07] MEDS: Spironolactone 25 MG Tablet PO SCH ×2 (09:52→17:10)
[2018-02-07] MEDS: metOLazone 5 MG Tablet PO SCH (09:52)
[2018-02-07] MEDS: Furosemide 40 MG Tablet PO SCH (09:53)
[2018-02-07] MEDS: Lactic Acid (Ammonium Lactate) 12% Lotion 225 GM Bottle TOPICAL SCH ×2 (09:53→21:28)
[2018-02-07] MEDS: Lactobacillus Acidophilus/L. Spores Tablet PO SCH ×3 (09:53→17:08)
[2018-02-07] MEDS: Senna/Docusate Sodium 8.6/50 MG Tablet PO SCH ×2 (09:54→21:28)
--- NOTE | 2018-02-07 13:59 | P.PNIM ---
Subjective Interval history: Follow-up Hyponatremia, NYASIA, left leg cellulitis/MRSA. Patient seen and examined , lying in bed, denies any pain, chest pain or SOB. Patient denies any abdominal pain, nausea, vomiting, diarrhea or constipation. Patient stated he had 3 bowel movements today, stated "its good, no diarrhea since he arrived her ". Patient stated doing well. Physical Exam Vital signs: Vital Signs 02/06/18 18:00 02/07/18 05:42 02/07/18 09:00 Temperature 97.8 F 98 F Pulse Rate 80 78 76 Respiratory Rate 19 16 Blood Pressure 141/64 H 91/53 L 115/56 L Pulse Oximetry 94 L 94 L Intake & Output 02/06/18 02/07/18 02/07/18 18:59 06:59 18:59 Intake Total 1200 / 1200 220 / 220 192 / 1920 Balance 1200 / 1200 220 / 220 192 / 1920 Intake: Oral 1200 / 1200 120 / 120 1919 / 1920 Oral Supplement 100 / 100 Other: # Voids 2 Date of Last Bowel Movement 02/07/18 # Bowel Movements 0 Narrative: GENERAL: Well-developed, alert and oriented x3, in no apparent distress SKIN: Warm and dry. Left lower leg slight redness and extra dry skin/scaliness , trace edema HEAD: Atraumatic. Normocephalic. EYES: Pupils equal and round. No scleral icterus. No injection or drainage. ENT: No nasal bleeding or discharge. Mucous membranes pink and moist. NECK: Trachea midline. No JVD. CARDIOVASCULAR: Regular rate and rhythm. RESPIRATORY: No accessory muscle use. Clear to auscultation. Breath sounds equal bilaterally. GASTROINTESTINAL: Abdomen soft, non-tender, nondistended. Hepatic and splenic margins not palpable. MUSCULOSKELETAL: Extremities without clubbing, cyanosis, or edema. No obvious deformities. NEUROLOGICAL: Awake and alert. No obvious cranial nerve deficits. Generalized weakness, moving all 4 extremities. Normal speech. PSYCHIATRIC: Appropriate mood and affect; insight and judgment poor . Results - Labs CBC & Chem 7: 02/04/18 07:24 02/06/18 07:16 Assessment and Plan - Assessment (1) Bilateral edema of lower extremity Code(s): R60.0 - Localized edema Status: Acute (2) Cirrhosis Code(s): K74.60 - Unspecified cirrhosis of liver Status: Acute (3) Portal hypertension Code(s): K76.6 - Portal hypertension Status: Acute (4) Hypertension Code(s): I10 - Essential (primary) hypertension Status: Acute (5) Renal insufficiency, mild Code(s): N28.9 - Disorder of kidney and ureter, unspecified Status: Acute - Plan This is a 62 years old male with who denies any past medical history other than the lower leg edema and chronic wound, stated had "fungal infection from the war in [place]", and cataract. Patient presents to the emergency department under [place] act by local police, reported refusing treatment for the swollen legs, having delusional thoughts, talking to God, walking in the house without any underpants, fell 5 times before the admission. Patient is admitted in the psychiatric unit for management and treatment. Medicine team is consulted for lower extremity edema and medical management. Left lower leg edema and redness/left leg cellulitis/MRSA Acute on chronic, redness likely due to edema -Venous Doppler negative for bilateral lower extremity deep venous thrombosis -Status post antibiotic treatment -Wound care consult for bilateral leg wound care management -Elevate lower extremities while in the chair or bed -Start on Lasix and potassium -Monitor BMP -Moisturize bilateral lower leg extremities Cirrhosis /incidental finding on CT of the abdomen and pelvis -Hepatitis profile- nonreactive -Liver US: Mild dilatation of the common bile duct at 8 mm. MRCP could be performed for further evaluation if clinically indicated. -LFT improving, monitor -Lipid panel unremarkable -Education and counseling on alcohol cessation -Continue Aldactone, metolazone and Lasix, monitor BMP Hypertension, uncontrolled Portal hypertension/incidental finding from CT of the abdomen and pelvis -Monitor blood pressure -Monitor for signs and symptoms -continue Lasix, increase spironolactone, decrease KCl supplement -Monitor BMP Renal insufficiency/hypokalemia/hyponatremia likely related to hypertension/metabolic in nature -Monitor BMP, hemoglobin A1c 6.4 -Avoid nephrotoxic -Replace potassium -discontinue IVF, patient improved in PO intake -Monitor CMP Subclinical hypothyroidism Monitor TSH/free T4 Status post fall at home -Cervical spine CT without evidence of fracture -Head CT negative -Chest x-ray negative Possible history of C. difficile Recent diarrhea, no diarrhea for over a week Stool PCR AG positive/toxin negative -On vancomycin p.o. per GI recommendation, continue x 14 days total -monitor DVT prophylaxis: Increase ambulation/out of bed Patient medically stable, will sign off. Medicine Team will be available as necessary. Thank you for your consultation. Code Status: full code Discussed Condition With: patient and nurse
--- NOTE | 2018-02-07 13:59 | P.PNPSY ---
Subjective Remarks: The patient was seen today for psychiatric reevaluation. The patient is calm, cooperative, a little bit irritable. He reports feeling much better today, having a good appetite, he reports that he had a good sleep last night. Requesting to be discharged back home, he says that he will fix the situation with his daughter. The patient is fully oriented x3, without attention deficit , without fluctuation of consciousness. I did not perceive any prominent delusions today. Does not seem to be so hoahaoism preoccupied today. Compliant with medications, no significant side effects. Mental Status Examination Appearance: Appropriate Consciousness: Alert Orientation: Person, Place Motor Activity: Other (No abnormal motor movements noted.) Speech: Unremarkable Language: Adequate Fund of Knowledge: Adequate Attention and Concentration: Adequate Memory: Impaired (Suspected) Mood: Irritable (Lessening) Affect: Irritable (Lessening) Thought Process & Associations: Linear Thought Content: Hallucinations, Delusional Hallucination Type: Auditory (God's voice) Delusion Type: Bizarre (Religiously preoccupied), Paranoid (Medications are poisoned), Other (Sikhism preoccupation) Suicidal Ideation: No Suicidal Plan: No Suicidal Intention: No Homicidal Ideation: No Homicidal Plan: No Homicidal Intention: No Insight: Fair Judgment: Impulsive Assessment and Plan - Assessment (1) Unspecified psychosis Code(s): F29 - Unspecified psychosis not due to a substance or known physiological condition Status: Acute - Plan Plan: Patient seems to be responding appropriately to psychotropic regimen. Compliant medications, no significant side effects. No behavioral problems in the unit. Continue psychotropic regimen Justification for Continued Inpatient Stay: Continue psychiatric hospitalization for stabilization.
[2018-02-08] MEDS: metOLazone 5 MG Tablet PO SCH (08:30)
[2018-02-08] MEDS: Lactobacillus Acidophilus/L. Spores Tablet PO SCH ×3 (08:31→17:34)
[2018-02-08] MEDS: Lactic Acid (Ammonium Lactate) 12% Lotion 225 GM Bottle TOPICAL SCH ×2 (08:31→20:38)
[2018-02-08] MEDS: Spironolactone 25 MG Tablet PO SCH (08:31)
[2018-02-08] MEDS: Furosemide 40 MG Tablet PO SCH (08:31)
[2018-02-08] MEDS: Senna/Docusate Sodium 8.6/50 MG Tablet PO SCH ×2 (09:13→20:38)
--- NOTE | 2018-02-08 12:49 | P.PNPSY ---
Subjective Remarks: Pt seen and discussed with staff. Chart reviewed. bellstaff report that pt has been compliant with medications and care. He has been calm and has not been agitated. He reports hearing the voice of God continuously, but has been less expressive of adventism delusions. He states that God is telling him good things and he doesn't mind it. Mental Status Examination Appearance: Appropriate Consciousness: Alert Orientation: Person, Place Motor Activity: Other (No abnormal motor movements noted.) Speech: Unremarkable Language: Adequate Fund of Knowledge: Adequate Attention and Concentration: Adequate Memory: Impaired (Suspected) Mood: Appropriate Affect: Appropriate Thought Process & Associations: Linear Thought Content: Hallucinations, Delusional Hallucination Type: Auditory (God's voice) Delusion Type: Bizarre (Religiously preoccupied), Paranoid (Medications are poisoned), Other (Holiness preoccupation) Suicidal Ideation: No Suicidal Plan: No Suicidal Intention: No Homicidal Ideation: No Homicidal Plan: No Homicidal Intention: No Insight: Fair Judgment: Impulsive Assessment and Plan - Assessment (1) Unspecified psychosis Code(s): F29 - Unspecified psychosis not due to a substance or known physiological condition Status: Acute - Plan Plan: Continue current tx plan Justification for Continued Inpatient Stay: risk of decompensation
--- NOTE | 2018-02-08 13:41 | P.PNIM ---
Subjective Interval history: Reconsulted for Hypotension episodes and Follow-up Hyponatremia, NYASIA, left leg cellulitis/MRSA. Nurse requested to see patient for hypotension episode with BP 90'2/50's. patient seen and ecxamined sitting in the bed, stated doing well, no problem. Patient denies any dizziness, headache, pain, chest pain or sob. Patient stated he was eating well. Found the tray in the garbage can, stated he was fnished eating lunch and put everything in the garbage. Patient denies any abdominal pain, nausea, vomiting, diarrhea or constipation. Denies any fever or chills. Physical Exam Vital signs: Vital Signs 02/07/18 17:19 02/08/18 05:08 Temperature 98.4 F 97.2 F L Pulse Rate 102 H 76 Respiratory Rate 16 16 Blood Pressure 93/51 L 112/59 L Pulse Oximetry 95 96 Intake & Output 02/07/18 02/08/18 02/08/18 18:59 06:59 18:59 Intake Total 3360 / 3360 Balance 3360 / 3360 Intake: Oral 3360 / 3360 Other: Date of Last Bowel Movement 02/07/18 02/08/18 Narrative: GENERAL: Well-developed, alert and oriented x3, in no apparent distress SKIN: Warm and dry. Left lower leg slight redness and extra dry skin/scaliness , trace edema HEAD: Atraumatic. Normocephalic. EYES: Pupils equal and round. No scleral icterus. No injection or drainage. ENT: No nasal bleeding or discharge. Mucous membranes pink and moist. NECK: Trachea midline. No JVD. CARDIOVASCULAR: Regular rate and rhythm. RESPIRATORY: No accessory muscle use. Clear to auscultation. Breath sounds equal bilaterally. GASTROINTESTINAL: Abdomen soft, non-tender, nondistended. Hepatic and splenic margins not palpable. MUSCULOSKELETAL: Extremities without clubbing, cyanosis, or edema. No obvious deformities. NEUROLOGICAL: Awake and alert. No obvious cranial nerve deficits. Generalized weakness, moving all 4 extremities. Normal speech. PSYCHIATRIC: Appropriate mood and affect; insight and judgment poor with confusion Results - Labs CBC & Chem 7: 02/04/18 07:24 02/06/18 07:16 Assessment and Plan - Assessment (1) Bilateral edema of lower extremity Code(s): R60.0 - Localized edema Status: Acute (2) Cirrhosis Code(s): K74.60 - Unspecified cirrhosis of liver Status: Acute (3) Portal hypertension Code(s): K76.6 - Portal hypertension Status: Acute (4) Hypertension Code(s): I10 - Essential (primary) hypertension Status: Acute (5) Renal insufficiency, mild Code(s): N28.9 - Disorder of kidney and ureter, unspecified Status: Acute - Plan This is a 62 years old male with who denies any past medical history other than the lower leg edema and chronic wound, stated had "fungal infection from the war in [place]", and cataract. Patient presents to the emergency department under [place] act by local police, reported refusing treatment for the swollen legs, having delusional thoughts, talking to God, walking in the house without any underpants, fell 5 times before the admission. Patient is admitted in the psychiatric unit for management and treatment. Medicine team is consulted for lower extremity edema and medical management. Hypertension, uncontrolled/ with episodes of hypotension Portal hypertension/incidental finding from CT of the abdomen and pelvis -Monitor blood pressure -Monitor for signs and symptoms -decrease Lasix, & spironolactone, continue KCl supplement -continue Metolazone -Monitor BMP Left lower leg edema and redness/left leg cellulitis/MRSA Acute on chronic, redness likely due to edema -Venous Doppler negative for bilateral lower extremity deep venous thrombosis -Status post antibiotic treatment -Wound care consult for bilateral leg wound care management -Elevate lower extremities while in the chair or bed -Start on Lasix and potassium -Monitor BMP -Moisturize bilateral lower leg extremities Cirrhosis /incidental finding on CT of the abdomen and pelvis -Hepatitis profile- nonreactive -Liver US: Mild dilatation of the common bile duct at 8 mm. MRCP could be performed for further evaluation if clinically indicated. -LFT improving, monitor -Lipid panel unremarkable -Education and counseling on alcohol cessation -Continue Aldactone, metolazone and Lasix, monitor BMP Renal insufficiency/hypokalemia/hyponatremia likely related to hypertension/metabolic in nature -Monitor BMP, hemoglobin A1c 6.4 -Avoid nephrotoxic -Replace potassium -discontinue IVF, patient improved in PO intake -Monitor CMP Subclinical hypothyroidism Monitor TSH/free T4 Status post fall at home -Cervical spine CT without evidence of fracture -Head CT negative -Chest x-ray negative Possible history of C. difficile Recent diarrhea, no diarrhea for over a week Stool PCR AG positive/toxin negative -On vancomycin p.o. per GI recommendation, continue x 14 days total -monitor DVT prophylaxis: Increase ambulation/out of bed Patient medically stable, will sign off. Medicine Team will be available as necessary. Thank you for your consultation. Code Status: full code Discussed Condition With: patient and nurse
[2018-02-08] MEDS ORDERED: Furosemide 20 MG Tablet PO SCH (14:00)
[2018-02-09] MEDS: Furosemide 20 MG Tablet PO SCH (09:20)
[2018-02-09] MEDS: Senna/Docusate Sodium 8.6/50 MG Tablet PO SCH ×2 (09:20→20:41)
[2018-02-09] MEDS: Lactobacillus Acidophilus/L. Spores Tablet PO SCH ×3 (09:20→17:37)
[2018-02-09] MEDS: metOLazone 5 MG Tablet PO SCH (09:20)
[2018-02-09] MEDS: Spironolactone 25 MG Tablet PO SCH (09:20)
[2018-02-09] MEDS: Lactic Acid (Ammonium Lactate) 12% Lotion 225 GM Bottle TOPICAL SCH ×2 (09:21→20:41)
[2018-02-09 10:54] LABS: Calcium 8.6 mg/dL (8.5-10.1); Carbon Dioxide 36.3 meq/L (21.0-32.0); Potassium 4.2 meq/L (3.5-5.1)
--- NOTE | 2018-02-09 16:07 | P.DIET ---
Nutritional Evaluation Type of nutrition evaluation: follow-up Nutrition consult regarding: Diet Evaluation Nutrition screening: [facility] Screening comments: 02/03/18 [facility] Poor PO Intake; wt loss since admission 01/27/18 [facility] Diet Education 01/15/18 [facility] Poor PO Intake Subjective Subjective Comments: PO intake 90% for breakfast today and 100% for lunch. Pt reports he is drinking the Glucerna shakes and provides updated food preferences during this visit. Per RN Lilly, pt discarded a meal tray into the trash can in his room and the trash can has now been removed. Calorie Count envelope collected. Brought forward from previous note: Pt visited in his room. Pt refuses diet education for pre-diabetes. Objective - Diagnosis Unspecified Psychosis - Indications of Malnutrition Characteristics: Weight loss - Objective [place] body weight: 81 kg % IBW: 64 Body Weight Used for Calculations: Actual (85.6kg) Energy Needs - Lower Range (kCal/kg): 35 Energy Needs - Upper Range (kCal/kg): 40 Lower Limit kCal/kg (kCals): 2,240 Upper Limit kCal/kg (kCals): 2,560 Lower Limit Protein Factor (Grams per Kg): 1.4 Upper Limit Protein Factor (Grams per Kg): 1.8 Lower Protein Needs (Protein): 90 Upper Protein Needs (Protein): 115 Fluid Factor (ml/kg): 35 Estimated Fluid Needs (ml): 2,240 Dietitian Reviewed in Medical Record: Current diet, Curent medications, Intake & Output, Labs, Medical history, Wound/DTI (Lower Extremity Edema; 01/13 [facility]OC[facility] note-see note in EMR) Diet Order: Oral Diet Intake Amount: Fair 50-75% Objective Comments: PMH Includes: Cataracts, Fungal Infecton, Lower Extremity Edema A1C 6.4, Glucose 222(02/09) Meds Include: Lasix, Haldol, Ativan, Seroquel, Aldactone, Metolazone, Lactinex +C-Diff Feeding - Current PO Supplement Current Supplement: Glucerna Shake Current Frequency of Supplement: Three times a day Current kCals Provided by Supplement: 220 Current Protein Provided by Supplement: 10 - kCal Count Day 1 kCal Intake: 1,151 Day 1 Protein Intake: 55 Day 2 kCal Intake: 1,249 Day 2 Protein Intake: 90 Day 3 kCal Intake: 1,675 Day 3 Protein Intake: 63 Assessment Assessment: Pt continues at nutritional risk r/t poor po intake. Calorie Count 02/06 through 02/09 w/Inadequate po intake. Pt averaged 61% for kcal needs and 78% for protein needs. Pt w/documented significant wt loss, 24.3kg(53-lb)since admission. Noted pt is receiving diuretics. Rec diet be liberalized to a Regular No Sugar No Concentrated Sweets to allow for additional menu options and assist w/increased po intake. Continue Glucerna Shakes TID. Continue to honor food preferences. Rec an appetite stimulant, if medically appropriate. Brought forward from previous note: MDC for diet education-Pt is currently not appropriate and not receptive to diet education for diabetes at this time. Labs , wts and clinical course reviewed. Recommendations: 1. Calorie Count 02/06 through 02/09 w/Inadequate po intake 2. Pt w/documented significant wt loss, 24.3kg(53-lb)since admission-oted pt is receiving diuretics 3. Rec diet be liberalized to a Regular No Sugar No Concentrated Sweets to allow for additional menu options and assist w/ increased po intake 4. Continue Glucerna Shakes TID 5. Continue to honor food preferences 6. Rec an appetite stimulant, if medically appropriate 7. Brought forward from previous note: MDC for diet education-Pt is currently not appropriate and not receptive to diet education for diabetes at this time Dietitian to Monitor: Lab values, Glucose level, Supplement acceptance, Intake & Output, Weight change, PO Intake, Medical course
--- NOTE | 2018-02-09 16:42 | P.PNPSY ---
Subjective Remarks: Patient seen for follow up; chart reviewed. Discussion with nursing staff reported that patient continues with AH of God's voice. Patient was found sitting in hospital chair, noted to be slightly more cooperative, states that everything is the same, feeling "fine", continues to report God's voice telling him that he would be discharged soon, no longer endorsing bizarre and rastafarian delusions even when asked. He states that his son will be helping find him a residence. Patient's daughter involved in patient's referral to an assisted living facility. Review of Systems All other systems reviewed negative except as stated in HPI Mental Status Examination Appearance: Appropriate Consciousness: Alert Orientation: Person, Place Motor Activity: Other (No abnormal motor movements noted.) Speech: Unremarkable Language: Adequate Fund of Knowledge: Adequate Attention and Concentration: Adequate Memory: Impaired (Suspected) Mood: Appropriate Affect: Appropriate Thought Process & Associations: Linear Thought Content: Hallucinations, Delusional Hallucination Type: Auditory (God's voice) Delusion Type: Bizarre (Religiously preoccupied), Paranoid (Medications are poisoned), Other (Oriental Orthodox preoccupation) Suicidal Ideation: No Suicidal Plan: No Suicidal Intention: No Homicidal Ideation: No Homicidal Plan: No Homicidal Intention: No Insight: Fair Judgment: Impulsive Assessment and Plan - Assessment (1) Unspecified psychosis Code(s): F29 - Unspecified psychosis not due to a substance or known physiological condition Status: Acute - Plan Plan: Patient continues with AH of God's voice but no negative comments, not endorsing any delusions and denies upon questioning but continues with paranoia with staff. Continue current treatment, continue to monitor mood and behavior. Discharge planning in progress. Justification for Continued Inpatient Stay: At risk for further decompensation at lower level of care.
--- NOTE | 2018-02-09 17:44 | P.PNIM ---
Subjective Interval history: Follow-up for Hypotension episodes and Follow-up Hyponatremia, NYASIA, left leg cellulitis/MRSA. Patient seen and examined, laying in bed, denies any pain, chest pain or shortness of breath, denies any headache or dizziness. Denies any abdominal pain, nausea, vomiting, diarrhea or constipation. Denies any fever or chills. Patient stated he is good as can be to put lotion in his leg is doing well and ready to go home. Nurse reported no acute complaints for the patient patient stated he is eating well no problem. Physical Exam Vital signs: Vital Signs 02/08/18 18:00 02/09/18 06:00 Temperature 97.9 F 98.9 F Pulse Rate 76 71 Respiratory Rate 16 18 Blood Pressure 108/64 100/55 L Pulse Oximetry 97 97 Intake & Output 02/08/18 02/09/18 02/09/18 18:59 06:59 18:59 Intake Total 1680 / 1680 120 / 120 4800 / 4800 Balance 1680 / 1680 120 / 120 4800 / 4800 Intake: Oral 1680 / 1680 120 / 120 4800 / 4800 Other: # Voids 1 Date of Last Bowel Movement 02/08/18 02/08/18 02/09/18 Narrative: GENERAL: Well-developed, alert and oriented x3, in no apparent distress SKIN: Warm and dry. Left lower leg slight redness and extra dry skin/scaliness , trace edema HEAD: Atraumatic. Normocephalic. EYES: Pupils equal and round. No scleral icterus. No injection or drainage. ENT: No nasal bleeding or discharge. Mucous membranes pink and moist. NECK: Trachea midline. No JVD. CARDIOVASCULAR: Regular rate and rhythm. RESPIRATORY: No accessory muscle use. Clear to auscultation. Breath sounds equal bilaterally. GASTROINTESTINAL: Abdomen soft, non-tender, nondistended. Hepatic and splenic margins not palpable. MUSCULOSKELETAL: Extremities without clubbing, cyanosis, or edema. No obvious deformities. NEUROLOGICAL: Awake and alert. No obvious cranial nerve deficits. Generalized weakness, moving all 4 extremities. Normal speech. PSYCHIATRIC: Appropriate mood and affect; insight and judgment poor with confusion Results - Labs CBC & Chem 7: 02/04/18 07:24 02/09/18 10:05 Laboratory Results - last 24 hr 02/09/18 10:05 Sodium 137 Potassium 4.2 Chloride 96 L Carbon Dioxide 36.3 H Anion Gap 5 BUN 32 H Creatinine 1.17 Estimated GFR 63 L Random Glucose 220 H Calcium 8.6 Assessment and Plan - Assessment (1) Bilateral edema of lower extremity Code(s): R60.0 - Localized edema Status: Acute (2) Cirrhosis Code(s): K74.60 - Unspecified cirrhosis of liver Status: Acute (3) Portal hypertension Code(s): K76.6 - Portal hypertension Status: Acute (4) Hypertension Code(s): I10 - Essential (primary) hypertension Status: Acute (5) Renal insufficiency, mild Code(s): N28.9 - Disorder of kidney and ureter, unspecified Status: Acute - Plan This is a 62 years old male with who denies any past medical history other than the lower leg edema and chronic wound, stated had "fungal infection from the war in [place]", and cataract. Patient presents to the emergency department under [place] act by local police, reported refusing treatment for the swollen legs, having delusional thoughts, talking to God, walking in the house without any underpants, fell 5 times before the admission. Patient is admitted in the psychiatric unit for management and treatment. Medicine team is consulted for lower extremity edema and medical management. Hypertension, uncontrolled/ with episodes of hypotension Portal hypertension/incidental finding from CT of the abdomen and pelvis -Monitor blood pressure -Monitor for signs and symptoms -decrease Lasix, & spironolactone, continue KCl supplement -Decrease metolazone dose, due to low blood pressure -Monitor BMP Left lower leg edema and redness/left leg cellulitis/MRSA Acute on chronic, redness likely due to edema -Venous Doppler negative for bilateral lower extremity deep venous thrombosis -Status post antibiotic treatment -Wound care consult for bilateral leg wound care management -Elevate lower extremities while in the chair or bed -Start on Lasix and potassium -Monitor BMP -Moisturize bilateral lower leg extremities -Edema improved Cirrhosis /incidental finding on CT of the abdomen and pelvis -Hepatitis profile- nonreactive -Liver US: Mild dilatation of the common bile duct at 8 mm. MRCP could be performed for further evaluation if clinically indicated. -LFT improving, monitor -Lipid panel unremarkable -Education and counseling on alcohol cessation -Continue Aldactone, metolazone and Lasix, monitor BMP Renal insufficiency/hypokalemia/hyponatremia likely related to hypertension/metabolic in nature -Monitor BMP, hemoglobin A1c 6.4 -Avoid nephrotoxic -Replace potassium -discontinue IVF, patient improved in PO intake -Monitor CMP Subclinical hypothyroidism Monitor TSH/free T4 Status post fall at home -Cervical spine CT without evidence of fracture -Head CT negative -Chest x-ray negative Possible history of C. difficile Recent diarrhea, no diarrhea for over a week Stool PCR AG positive/toxin negative -On vancomycin p.o. per GI recommendation, continue x 14 days total -monitor DVT prophylaxis: Increase ambulation/out of bed Patient medically stable, will sign off. Medicine Team will be available as necessary. Thank you for your consultation. Code Status: Full code Discussed Condition With: Patient and nurse
[2018-02-10] MEDS: Spironolactone 25 MG Tablet PO SCH (10:29)
[2018-02-10] MEDS: Senna/Docusate Sodium 8.6/50 MG Tablet PO SCH ×3 (10:29→20:14)
[2018-02-10] MEDS: Lactobacillus Acidophilus/L. Spores Tablet PO SCH ×3 (10:29→18:46)
[2018-02-10] MEDS: Lactic Acid (Ammonium Lactate) 12% Lotion 225 GM Bottle TOPICAL SCH ×2 (10:29→20:14)
[2018-02-10] MEDS: Furosemide 20 MG Tablet PO SCH (10:29)
--- NOTE | 2018-02-10 15:08 | P.TTN ---
- Patient Problems Problems: 1. Discharge planning 2. Medication compliance 3. Knowledge deficit 4. Lack of coping skills - Progress Toward Goals Provider Present: Dr. Lluvia Calle, Dr. Suad Saavedra Provider Input: 02/09/2018; per doctor patient's medication are being adjusted to address his mood/behavior. 02/04/2018; per doctor patient is noncompliant with medication; meds are being adjusted to address pt's mood and aggressive behavior. 01/28: Pt is compliant with medications, currently on isolation (C- Diff), exploring discharge options, d/c date dependent on medical clearance. : Pt psychiatric dosages continue to be titrated. Pt continues to report that others (family and staff) are "devils", pt continues with religiously. based ideations. Family is currently advising placement for pt. 01/21/18: psychiatric meds undergoing titration based on pt needs. Dr. Saavedra to review notes and meet with patient. Nurse(s) Present: RN Nurse Input: 02/09/2018; per RN patient's mood is somewhat lifted, less agitation with no signs of aggression, require redirection with inappropriate thoughts. Pt is eating and taking meds. 02/04/2018; per RN patient requires ETO 's due to agitated and aggressive mood. Pt is eating meals and at times compliant with medication Psychiatric Counselors Present: Sandra Cotton LCSW, Jose J Busch Jr., [facility], Na Yeager, [facility] Psychiatric Therapist Input: 02/09/2018; DC conservation planner continues to explore appropriate placement in an [facility] setting, patient has been denied at most [facility] thus far. Patient is encouraged with appropriate behavior. 02/04/2018; Counselor will continue exploring appropriate placement options; patient is unable to return to the home of family and has limited income with no medicare and only medicaid share of cost. 01/26/18: Pt is not regularly seen by PANCHO Lux (Richie) has limited contact with pt. Pt is on isolation precautions, placement presents as challenging. 01/21/18: Pt's family are on record as unable to care for pt. Placement is being considered per pt financial, behavioral/cognitive and insurance considerations. 01/12/18: Pt has not been assessed by counselor as yet. Group Spec/RT/OT/CHUNG Present: Renetta Clarke, GPS, Richie Mccall, OT Group Spec/RT/OT/CHUNG Input: 02/09/2018 patient has been unable to attend groups and activities. 02/04/2018; per OT patient is resisted with group and activity participation. 01/28: pt on isolation, unable to attend groups. : Pt is unable to tolerate group intactions. He is unable to participate based on his level of cognition. New pt; no hx as yet. Clinical Coordinator Input: 01/28: Multiple pt packets had been send out previously, new packets to be sent dianna pending medical clearance. Other Clinican Input: 01/21/18: Counselor seeking appropriate placement based on pt finances, insurance and medical/psych needs. Additional Input: 01/28: Pt is compliant with medications, currently on isolation (C-Diff), exploring discharge options, d/c date dependent on medical clearance. 01/26/18: Pt is a placement challenge, pt is currently meeting psychiatric criteria. Pt's family is concerned and advising pt placement vs home. - Documentation Scribe: Richie Mccall, MS, OTR Teaching Recipient: Patient
--- NOTE | 2018-02-10 16:24 | P.PNPSY ---
Subjective Remarks: Patient seen for follow-up, chart reviewed. Discussion with nursing staff reported that patient continues to state that God is still talking to him but no negative comments only that he will be discharged soon. Patient was found lying hospital bed noted be slightly less irritable with teletypewriter operator stating that he is feeling fine denying any physical complaints at this time reports ambulating well, eating and drinking well states he continues to hear the voice of God which time he will be discharged in 9 days. Patient on endorsing any bizarre latter-day delusions continues to be superficially cooperative toward end of interview. Review of Systems All other systems reviewed negative except as stated in HPI Mental Status Examination Appearance: Appropriate Consciousness: Alert Orientation: Person, Place Motor Activity: Other (No abnormal motor movements noted.) Speech: Unremarkable Language: Adequate Fund of Knowledge: Adequate Attention and Concentration: Adequate Memory: Impaired (Suspected) Mood: Appropriate Affect: Appropriate Thought Process & Associations: Linear Thought Content: Hallucinations, Delusional (Lessening) Hallucination Type: Auditory (God's voice) Delusion Type: Bizarre (Religiously preoccupied), Paranoid (Medications are poisoned), Other (Rastafari preoccupation) Suicidal Ideation: No Suicidal Plan: No Suicidal Intention: No Homicidal Ideation: No Homicidal Plan: No Homicidal Intention: No Insight: Fair Judgment: Impulsive Assessment and Plan - Assessment (1) Unspecified psychosis Code(s): F29 - Unspecified psychosis not due to a substance or known physiological condition Status: Acute - Plan Plan: Patient continues to endorse auditory hallucination of God's voice but denying any negative comments only that he will be discharged. Patient continued with some irritability due to prolonged hospital stay thus far. Treatment team continues to search for adequate placement (nursing facility or NURSING HOME). We will continue current treatment we will continue to monitor mood and behavior. Discharge planning a progress. Justification for Continued Inpatient Stay: At risk of further decompensation at lower level care.
[2018-02-11] MEDS: Spironolactone 25 MG Tablet PO SCH (10:31)
[2018-02-11] MEDS: Senna/Docusate Sodium 8.6/50 MG Tablet PO SCH ×2 (10:31→20:28)
[2018-02-11] MEDS: Lactic Acid (Ammonium Lactate) 12% Lotion 225 GM Bottle TOPICAL SCH ×2 (10:32→20:29)
[2018-02-11] MEDS: Furosemide 20 MG Tablet PO SCH (10:32)
[2018-02-11] MEDS: Lactobacillus Acidophilus/L. Spores Tablet PO SCH ×2 (10:32→18:20)
--- NOTE | 2018-02-11 12:12 | P.TTN ---
- Patient Problems Problems: 1. Discharge planning 2. Medication compliance 3. Knowledge deficit 4. Lack of coping skills - Progress Toward Goals Provider Present: Dr. Lluvia Calle, Dr. Suad Saavedra Provider Input: 02/11/2018 Doctor is monitoring changes in pharmacotherapy for improved mood and behavior. 02/09/2018; per doctor patient's medication are being adjusted to address his mood/behavior. 02/04/2018; per doctor patient is noncompliant with medication; meds are being adjusted to address pt's mood and aggressive behavior. 01/28: Pt is compliant with medications, currently on isolation (C-Diff), exploring discharge options, d/c date dependent on medical clearance. 01/26/18: Pt psychiatric dosages continue to be titrated. Pt continues to report that others (family and staff) are "devils", pt continues with religiously. based ideations. Family is currently advising placement for pt. 01/21/18: psychiatric meds undergoing titration based on pt needs. Dr. Saavedra to review notes and meet with patient. Nurse(s) Present: RN Nurse Input: 02/11/2018 patient states God is going to release him in 9 days. He continues dismissive behavior. 02/09/2018; per RN patient's mood is somewhat lifted, less agitation with no signs of aggression, require redirection with inappropriate thoughts. Pt is eating and taking meds. 2017; per RN patient requires ETO's due to agitated and aggressive mood. Pt is eating meals and at times compliant with medication Psychiatric Counselors Present: Sandra Cotton LCSW, Jose J Busch Jr., [facility], Na Yeager, [facility] Psychiatric Therapist Input: 02/11/2018 Coninuing to work with family and exhausting all possibilities for placement. 02/09/2018; DC discharge planner continues to explore appropriate placement in an [facility] setting, patient has been denied at most [facility] thus far. Patient is encouraged with appropriate behavior. 02/04/2018 ; Counselor will continue exploring appropriate placement options; patient is unable to return to the home of family and has limited income with no medicare and only medicaid share of cost. 01/26/18: Pt is not regularly seen by Jose J, PANCHO (Richie) has limited contact with pt. Pt is on isolation precautions, placement presents as challenging. 01/21/18: Pt's family are on record as unable to care for pt. Placement is being considered per pt financial, behavioral/cognitive and insurance considerations. 01/12/18: Pt has not been assessed by counselor as yet. Group Spec/RT/OT/CHUNG Present: Renetta Clarke, GPS, Richie Mcclal, OT Group Spec/RT/OT/CHUNG Input: 02/09/2018 patient has been unable to attend groups and activities. 02/04/2018; per OT patient is resisted with group and activity participation. 01/28: pt on isolation, unable to attend groups. : Pt is unable to tolerate group intactions. He is unable to participate based on his level of cognition. New pt; no hx as yet. Clinical Coordinator Input: 01/28: Multiple pt packets had been send out previously, new packets to be sent dianna pending medical clearance. Other Clinican Input: 01/21/18: Counselor seeking appropriate placement based on pt finances, insurance and medical/psych needs. Additional Input: 01/28: Pt is compliant with medications, currently on isolation (C-Diff), exploring discharge options, d/c date dependent on medical clearance. 01/26/18: Pt is a placement challenge, pt is currently meeting psychiatric criteria. Pt's family is concerned and advising pt placement vs home. - Documentation Scribe: Richie Mccall, MS, OTR Teaching Recipient: Patient
--- NOTE | 2018-02-11 21:57 | P.PNPSY ---
Subjective Remarks: Patient seen for follow-up, chart reviewed. Discussion with nursing staff reported that patient no behavioral issues, finish course of vancomycin completed. Patient was found lying hospital bed noted B, cooperative. Patient states that he is feeling "just fine" denying any physical complaints at this time, denying any loose bowels, reporting eating and drinking well. Patient states that he continues to hear God's voice telling him he will be discharged from the hospital in a couple of days and not mentioning any of the past delusions regarding family in relation to Satan. Patient noted to be less irritable and more cooperative with staff. Review of Systems All other systems reviewed negative except as stated in HPI Mental Status Examination Appearance: Appropriate Consciousness: Alert Orientation: Person, Place Motor Activity: Other (No abnormal motor movements noted.) Speech: Unremarkable Language: Adequate Fund of Knowledge: Adequate Attention and Concentration: Adequate Memory: Impaired (Suspected) Mood: Appropriate Affect: Appropriate Thought Process & Associations: Linear Thought Content: Hallucinations, Delusional (Minimal) Hallucination Type: Auditory (God's voice) Delusion Type: Paranoid (Minimal) Suicidal Ideation: No Suicidal Plan: No Suicidal Intention: No Homicidal Ideation: No Homicidal Plan: No Homicidal Intention: No Insight: Fair Judgment: Impulsive Assessment and Plan - Assessment (1) Unspecified psychosis Code(s): F29 - Unspecified psychosis not due to a substance or known physiological condition Status: Acute - Plan Plan: Patient continues to have active disease of God's voice telling him that he will be discharged in a few days. Patient does not endorse any other catholic delusions nor other auditory hallucinations other than stated. Patient continued to be compliant with medications, continue to allow care. Continue current treatment. Continue to monitor mood and behavior. Discharge planning in progress. Justification for Continued Inpatient Stay: At risk of further decompensation at lower level care.
[2018-02-12] MEDS: Lactobacillus Acidophilus/L. Spores Tablet PO SCH ×3 (08:24→12:19)
[2018-02-12] MEDS: Spironolactone 25 MG Tablet PO SCH (09:49)
[2018-02-12] MEDS: Furosemide 20 MG Tablet PO SCH (09:49)
[2018-02-12] MEDS: Senna/Docusate Sodium 8.6/50 MG Tablet PO SCH ×2 (09:49→20:50)
[2018-02-12] MEDS: Lactic Acid (Ammonium Lactate) 12% Lotion 225 GM Bottle TOPICAL SCH ×2 (09:49→20:50)
--- NOTE | 2018-02-12 18:52 | P.PNPSY ---
Subjective Remarks: Patient seen for follow-up, chart reviewed. Discussion with nursing staff reported that patient no behavioral changes, continues to state that God still talks to him. Patient was found lying hospital bed noted B, cooperative. Patient states that he feels regret due to his last argument with his granddaughter wants to communicate with her any commands. He states that he cannot continue to speak with him telling him "good things". Patient denies any perceptional services other than that stated and denying any physical complaints at this time. Review of Systems All other systems reviewed negative except as stated in HPI Mental Status Examination Appearance: Appropriate Consciousness: Alert Orientation: Person, Place Motor Activity: Other (No abnormal motor movements noted.) Speech: Unremarkable Language: Adequate Fund of Knowledge: Adequate Attention and Concentration: Adequate Memory: Impaired (Suspected) Mood: Appropriate Affect: Appropriate Thought Process & Associations: Linear Thought Content: Hallucinations, Delusional (Minimal) Hallucination Type: Auditory (God's voice) Delusion Type: Paranoid (Minimal) Suicidal Ideation: No Suicidal Plan: No Suicidal Intention: No Homicidal Ideation: No Homicidal Plan: No Homicidal Intention: No Insight: Fair Judgment: Impulsive Assessment and Plan - Assessment (1) Unspecified psychosis Code(s): F29 - Unspecified psychosis not due to a substance or known physiological condition Status: Acute - Plan Plan: Patient continues to be cooperative, compliant medications, now less irritable and preoccupied only with discharge now. Patient continues to state hearing God 's voice telling him that he will be discharged soon. Continue current treatment. Continue to monitor mood and behavior. Discharge planning in progress. Justification for Continued Inpatient Stay: At risk of further decompensation at lower level care.
[2018-02-13] MEDS: Lactobacillus Acidophilus/L. Spores Tablet PO SCH ×3 (10:05→13:03)
[2018-02-13] MEDS: Senna/Docusate Sodium 8.6/50 MG Tablet PO SCH ×2 (10:05→21:25)
[2018-02-13] MEDS: Furosemide 20 MG Tablet PO SCH (10:06)
[2018-02-13] MEDS: Spironolactone 25 MG Tablet PO SCH (10:07)
[2018-02-13] MEDS: Lactic Acid (Ammonium Lactate) 12% Lotion 225 GM Bottle TOPICAL SCH ×2 (10:07→21:27)
--- NOTE | 2018-02-13 19:58 | P.PNPSY ---
Subjective Remarks: Patient seen for follow-up, chart reviewed. Discussion with nursing staff reported that patient is a pleasant with no behavioral changes denies any auditory hallucinations. Patient was found lying hospital bed noted B, cooperative. Patient states feeling "good" states that God is "telling his will " when he states he will be home soon. He denies any other messages, is from God positive or negative. Denies any physical complaints at this time. Patient reports eating and drinking well. Review of Systems All other systems reviewed negative except as stated in HPI Mental Status Examination Appearance: Appropriate (Neuro) Consciousness: Alert Orientation: Person, Place Motor Activity: Other (No abnormal motor movements noted.) Speech: Unremarkable Language: Adequate Fund of Knowledge: Adequate Attention and Concentration: Adequate Memory: Impaired (Suspected) Mood: Appropriate Affect: Appropriate Thought Process & Associations: Linear Thought Content: Hallucinations, Delusional (Minimal) Hallucination Type: Auditory (God's voice) Delusion Type: Paranoid (Minimal) Suicidal Ideation: No Suicidal Plan: No Suicidal Intention: No Homicidal Ideation: No Homicidal Plan: No Homicidal Intention: No Insight: Fair Judgment: Impulsive Assessment and Plan - Assessment (1) Unspecified psychosis Code(s): F29 - Unspecified psychosis not due to a substance or known physiological condition Status: Acute - Plan Plan: Continues with less irritability, Continue to hallucinations but not negative in nature., cooperative with staff, compliant with treatment. Continue current treatment. Continue to monitor mood and behavior. Discharge planning in progress. Justification for Continued Inpatient Stay: At risk of further decompensation at lower level care.
[2018-02-14] MEDS: Lactobacillus Acidophilus/L. Spores Tablet PO SCH ×3 (10:34→17:25)
[2018-02-14] MEDS: Senna/Docusate Sodium 8.6/50 MG Tablet PO SCH ×2 (10:35→20:35)
[2018-02-14] MEDS: Spironolactone 25 MG Tablet PO SCH (10:35)
[2018-02-14] MEDS: Furosemide 20 MG Tablet PO SCH (10:35)
[2018-02-14] MEDS: Lactic Acid (Ammonium Lactate) 12% Lotion 225 GM Bottle TOPICAL SCH ×2 (10:36→20:38)
--- NOTE | 2018-02-14 17:13 | P.PNPSY ---
Subjective Remarks: Patient was seen and case discussed with nursing. Patient is pleasant and cooperative with exam. His psychosis has largely improved compared to our last visit. Compliant with his medications and behaving well on the unit Mental Status Examination Appearance: Appropriate (Neuro) Consciousness: Alert Orientation: Person, Place Motor Activity: Other (No abnormal motor movements noted.) Speech: Unremarkable Language: Adequate Fund of Knowledge: Adequate Attention and Concentration: Adequate Memory: Impaired (Suspected) Mood: Appropriate Affect: Appropriate Thought Process & Associations: Linear Thought Content: Delusional (imProving) Delusion Type: Paranoid (Minimal) Suicidal Ideation: No Suicidal Plan: No Suicidal Intention: No Homicidal Ideation: No Homicidal Plan: No Homicidal Intention: No Insight: Fair Judgment: Impulsive Assessment and Plan - Assessment (1) Unspecified psychosis Code(s): F29 - Unspecified psychosis not due to a substance or known physiological condition Status: Acute - Plan Plan: Continue current treatment plan Justification for Continued Inpatient Stay: Patient would decompensate in a less restrictive setting
[2018-02-15] MEDS: Lactobacillus Acidophilus/L. Spores Tablet PO SCH ×3 (01:37→19:14)
[2018-02-15] MEDS: Spironolactone 25 MG Tablet PO SCH (11:18)
[2018-02-15] MEDS: Furosemide 20 MG Tablet PO SCH (11:18)
[2018-02-15] MEDS: Senna/Docusate Sodium 8.6/50 MG Tablet PO SCH ×2 (11:18→20:07)
--- NOTE | 2018-02-15 11:19 | P.PNPSY ---
Subjective Remarks: Patient today is "doing okay." He spending the day watching TV. His psychosis appears to be resolved. However he remains religiously preoccupied. He discusses his future plans after discharge. Continues to be in isolation from the medical doctor Mental Status Examination Appearance: Appropriate (Neuro) Consciousness: Alert Orientation: Person, Place Motor Activity: Other (No abnormal motor movements noted.) Speech: Unremarkable Language: Adequate Fund of Knowledge: Adequate Attention and Concentration: Adequate Memory: Impaired (Suspected) Mood: Appropriate Affect: Appropriate Thought Process & Associations: Linear Thought Content: Delusional (imProving) Hallucination Type: Auditory (God's voice) Delusion Type: Paranoid (Minimal) Suicidal Ideation: No Suicidal Plan: No Suicidal Intention: No Homicidal Ideation: No Homicidal Plan: No Homicidal Intention: No Insight: Fair Judgment: Impulsive Assessment and Plan - Assessment (1) Unspecified psychosis Code(s): F29 - Unspecified psychosis not due to a substance or known physiological condition Status: Acute - Plan Plan: Continue current treatment plan Justification for Continued Inpatient Stay: Patient would decompensate in a less restrictive setting
[2018-02-15] MEDS: Lactic Acid (Ammonium Lactate) 12% Lotion 225 GM Bottle TOPICAL SCH ×2 (11:21→20:07)
--- NOTE | 2018-02-16 05:10 | XR ---
EXAM DATE: 02/16/2018 4:52 AM EDT AGE/SEX: 62 years / Male INDICATIONS: Fall tonight. CLINICAL DATA: This is the patient's initial encounter. Patient reports that signs and symptoms have been present for 1 day and indicates a pain score of 1/10. MEDICAL/SURGICAL HISTORY: None. None. COMPARISON: [facility] [place], CT ABDOMEN & PELVIS W/O CONTRAST, 01/10/2018. . FINDINGS: Bony structures are intact and in normal alignment. Joints are intact without dislocation or signifi cant arthropathy. Osseous density is normal. Soft tissues are unremarkable. No radiopaque foreign bodies seen. CONCLUSION: No evidence of fracture or subluxation of the right hip. Electronically signed by: Jordan Charles MD 02/16/2018 5:09 AM EDT
--- NOTE | 2018-02-16 05:11 | XR ---
EXAM DATE: 02/16/2018 4:54 AM EDT AGE/SEX: 62 years / Male INDICATIONS: Fall trauma. CLINICAL DATA: This is the patient's initial encounter. Patient reports that signs and symptoms have been present for 1 day and indicates a pain score of 1/10. MEDICAL/SURGICAL HISTORY: None. None. COMPARISON: No prior exams available for comparison. FINDINGS: No fracture or subluxation of the right shoulder. There is mild to moderate osteoarthritis of both th e acromioclavicular and glenohumeral joints. Radiographic appearance of the soft tissues within peyman l limits. CONCLUSION: Intact right shoulder. Electronically signed by: Jordan Charles MD 02/16/2018 5:09 AM EDT
[2018-02-16] MEDS: Furosemide 20 MG Tablet PO SCH (08:52)
[2018-02-16] MEDS: Lactobacillus Acidophilus/L. Spores Tablet PO SCH ×3 (08:52→17:33)
[2018-02-16] MEDS: Spironolactone 25 MG Tablet PO SCH (08:53)
[2018-02-16] MEDS: Senna/Docusate Sodium 8.6/50 MG Tablet PO SCH ×2 (08:53→21:16)
[2018-02-16] MEDS: Lactic Acid (Ammonium Lactate) 12% Lotion 225 GM Bottle TOPICAL SCH ×2 (08:53→21:16)
--- NOTE | 2018-02-16 12:40 | P.TTN ---
- Patient Problems Problems: 1. Discharge planning 2. Medication compliance 3. Knowledge deficit 4. Lack of coping skills - Progress Toward Goals Provider Present: Dr. Lluvia Calle, Dr. Suad Saavedra (no med adjustment) Provider Input: 02/11/2018 Doctor is monitoring changes in pharmacotherapy for improved mood and behavior. 02/09/2018; per doctor patient's medication are being adjusted to address his mood/behavior. 02/04/2018; per doctor patient is noncompliant with medication; meds are being adjusted to address pt's mood and aggressive behavior. 01/28: Pt is compliant with medications, currently on isolation (C-Diff), exploring discharge options, d/c date dependent on medical clearance. 01/26/18: Pt psychiatric dosages continue to be titrated. Pt continues to report that others (family and staff) are "devils", pt continues with religiously. based ideations. Family is currently advising placement for pt. 01/21/18: psychiatric meds undergoing titration based on pt needs. Dr. Saavedra to review notes and meet with patient. Nurse(s) Present: RN Nurse Input: 02/11/2018 patient states God is going to release him in 9 days. He continues dismissive behavior. 02/09/2018; per RN patient's mood is somewhat lifted, less agitation with no signs of aggression, require redirection with inappropriate thoughts. Pt is eating and taking meds. 2017; per RN patient requires ETO's due to agitated and aggressive mood. Pt is eating meals and at times compliant with medication Psychiatric Counselors Present: Sandra Cotton LCSW, [facility] Busch Jr., [facility], Na Yeager [facility] (counselor to continue to look for safe discharge option) Psychiatric Therapist Input: 02/11/2018 Coninuing to work with family and exhausting all possibilities for placement. 02/09/2018; DC traffic and transport planner continues to explore appropriate placement in an [facility] setting, patient has been denied at most [facility] thus far. Patient is encouraged with appropriate behavior. 02/04/2018 ; Counselor will continue exploring appropriate placement options; patient is unable to return to the home of family and has limited income with no medicare and only medicaid share of cost. 01/26/18: Pt is not regularly seen by [facility] (Richie) has limited contact with pt. Pt is on isolation precautions, placement presents as challenging. 01/21/18: Pt's family are on record as unable to care for pt. Placement is being considered per pt financial, behavioral/cognitive and insurance considerations. 01/12/18: Pt has not been assessed by counselor as yet. Group Spec/RT/OT/CHUNG Present: Renetta Clarke, GPS, Richie Mccall, OT, Marlon Echols, CHUNG (pt. is still on isolation) Group Spec/RT/OT/CHUNG Input: 02/09/2018 patient has been unable to attend groups and activities. 02/04/2018; per OT patient is resisted with group and activity participation. 01/28: pt on isolation, unable to attend groups. : Pt is unable to tolerate group intactions. He is unable to participate based on his level of cognition. New pt; no hx as yet. Clinical Coordinator Input: 01/28: Multiple pt packets had been send out previously, new packets to be sent dianna pending medical clearance. Other Clinican Input: 01/21/18: Counselor seeking appropriate placement based on pt finances, insurance and medical/psych needs. Additional Input: 01/28: Pt is compliant with medications, currently on isolation (C-Diff), exploring discharge options, d/c date dependent on medical clearance. 01/26/18: Pt is a placement challenge, pt is currently meeting psychiatric criteria. Pt's family is concerned and advising pt placement vs home. - Documentation Scribe: Richie Mccall, MS, OTR Teaching Recipient: Patient
--- NOTE | 2018-02-16 14:25 | P.PN ---
Subjective Interval history: Hospitalist service reconsulted due to report of patient fall. Patient is unable to answer any of my questions except to tell me that he feels fine with no pain. He falls asleep in the middle of our conversation. Per psychiatry records patient had a fall but did not hit his head. He is a known poor historian. Physical Exam Vital signs: Vital Signs 02/15/18 19:01 02/16/18 05:36 02/16/18 08:30 Temperature 98.9 F 98.2 F Pulse Rate 77 86 86 Respiratory Rate 18 14 Blood Pressure 137/66 125/71 117/58 L Pulse Oximetry 90 L 96 96 Intake & Output 02/15/18 02/16/18 02/16/18 18:59 06:59 18:59 Intake Total 960 / 960 340 / 340 240 / 240 Balance 960 / 960 340 / 340 240 / 240 Intake: Oral 960 / 960 240 / 240 240 / 240 Oral Supplement 100 / 100 Other: # Voids 2 1 Date of Last Bowel Movement 02/10/18 02/10/18 Narrative: GENERAL: Thin, well-developed, adult male in no apparent distress SKIN: Warm and dry. Left lower leg slight redness and extra dry skin/scaliness , trace edema HEAD: Atraumatic. Normocephalic. EYES: Pupils equal and round. No scleral icterus. No injection or drainage. CARDIOVASCULAR: Regular rate and rhythm. RESPIRATORY: No accessory muscle use. Clear to auscultation. Breath sounds equal bilaterally. GASTROINTESTINAL: Abdomen soft, non-tender, nondistended. Hepatic and splenic margins not palpable. MUSCULOSKELETAL: Extremities without clubbing, cyanosis, or edema. No obvious deformities. Results - Labs CBC & Chem 7: 02/04/18 07:24 02/09/18 10:05 - Imaging Impressions Shoulder X-Ray 02/16/18 04:02 CONCLUSION: Intact right shoulder. Hip X-Ray 02/16/18 04:05 CONCLUSION: No evidence of fracture or subluxation of the right hip. Assessment and Plan - Assessment (1) Bilateral edema of lower extremity Code(s): R60.0 - Localized edema Status: Acute (2) Cirrhosis Code(s): K74.60 - Unspecified cirrhosis of liver Status: Acute (3) Portal hypertension Code(s): K76.6 - Portal hypertension Status: Acute (4) Hypertension Code(s): I10 - Essential (primary) hypertension Status: Acute (5) Renal insufficiency, mild Code(s): N28.9 - Disorder of kidney and ureter, unspecified Status: Acute - Plan Patient is a 62-year-old male who is status post fall with gait instability -Reviewed imaging -no injury noted -Patient appears to be at baseline and denies pain -Recommend fall risk precautions Hospitalist service will sign off as no treatment is indicated at this time. Please reconsult if needed
--- NOTE | 2018-02-16 17:01 | P.PNPSY ---
Subjective Remarks: Patient seen for follow-up, chart reviewed. Discussion with nursing staff reported that patient patient fell last night and imaging has been negative for no acute fractures noted. Patient was found lying hospital bed noted B, cooperative. Patient was noted with appropriate affect, smiling at times, pleasant and denying any physical complaints at this time. Patient states that he had fallen yesterday which he states he slipped when sitting on the chair onto the floor but denies having hit his head denies any physical complaints. He states that he was not experiencing any lightheadedness or dizziness the time of the fall. Patient was assured that imaging studies were negative for any fractures. He was asked about perceptional service to be states that God tells him that he will be out soon but nothing more. Patient has if he was having cataract surgery tomorrow which may be part of some baseline confusion reports attempts to reach his family but has been unsuccessful. Patient denies any recent visit from family members. Review of Systems All other systems reviewed negative except as stated in HPI Mental Status Examination Appearance: Appropriate Consciousness: Alert Orientation: Person, Place Motor Activity: Other (No abnormal motor movements noted.) Speech: Unremarkable Language: Adequate Fund of Knowledge: Adequate Attention and Concentration: Adequate Memory: Impaired (Suspected) Mood: Appropriate Affect: Appropriate Thought Process & Associations: Linear Thought Content: Delusional (imProving) Hallucination Type: Auditory (God's voice) Delusion Type: Paranoid (Minimal) Suicidal Ideation: No Suicidal Plan: No Suicidal Intention: No Homicidal Ideation: No Homicidal Plan: No Homicidal Intention: No Insight: Fair Judgment: Impulsive Assessment and Plan - Assessment (1) Unspecified psychosis Code(s): F29 - Unspecified psychosis not due to a substance or known physiological condition Status: Acute - Plan Plan: Patient noted with appropriate affect, noted to be in good spirits, denying physical complaints or recent fall. Imaging studies were negative for any acute pathology. We will continue current treatment. Continue to monitor mood and behavior. Discharge planning a progress. Justification for Continued Inpatient Stay: At risk of further decompensation at lower level care.
[2018-02-17] MEDS: Lactic Acid (Ammonium Lactate) 12% Lotion 225 GM Bottle TOPICAL SCH ×2 (09:03→21:36)
[2018-02-17] MEDS: Furosemide 20 MG Tablet PO SCH (09:04)
[2018-02-17] MEDS: Spironolactone 25 MG Tablet PO SCH (09:04)
[2018-02-17] MEDS: Lactobacillus Acidophilus/L. Spores Tablet PO SCH ×3 (09:04→17:49)
[2018-02-17] MEDS: Senna/Docusate Sodium 8.6/50 MG Tablet PO SCH ×2 (09:04→21:36)
--- NOTE | 2018-02-17 14:59 | P.PNPSY ---
Subjective Remarks: Reviewed electronic medical records and discussed case with staff. Follow-up was conducted in the patient's room. He reports that he is "doing wonderful". States that he is sleeping well and that his appetite has been "voracious". His mood is good his affect is euthymic. He denies any side effects from his medication Mental Status Examination Appearance: Appropriate Consciousness: Alert Orientation: Person, Place Motor Activity: Other (No abnormal motor movements noted.) Speech: Unremarkable Language: Adequate Fund of Knowledge: Adequate Attention and Concentration: Adequate Memory: Impaired (Suspected) Mood: Appropriate Affect: Appropriate Thought Process & Associations: Linear Thought Content: Delusional (imProving) Hallucination Type: Auditory (God's voice) Delusion Type: Paranoid (Minimal) Suicidal Ideation: No Suicidal Plan: No Suicidal Intention: No Homicidal Ideation: No Homicidal Plan: No Homicidal Intention: No Insight: Fair Judgment: Impulsive Assessment and Plan - Assessment (1) Unspecified psychosis Code(s): F29 - Unspecified psychosis not due to a substance or known physiological condition Status: Acute - Plan Plan: Patient will be reevaluated by the attending psychiatrist. Continue with current treatment plan. Justification for Continued Inpatient Stay: Moving this patient to a less restrictive environment would likely result in decompensation.
--- NOTE | 2018-02-17 16:14 | P.DIET ---
Nutritional Evaluation Type of nutrition evaluation: follow-up Nutrition consult regarding: Diet Evaluation Nutrition screening: [facility] [place]: 02/03/18 [facility] [place] Poor PO Intake; wt loss since admission 01/27/18 [facility] [place] Diet Education 01/15/18 [facility] [place] Poor PO Intake Subjective Subjective Comments: Pt visited after lunch today. Pt reports "Food is Perfect"; "Food is Seasoned Perfectly"; "I eat everything". Pt's lunch meal tray inspected following this visit and pt did not eat the entree, ate only the pudding and drank the Glucerna Shake. Brought forward from previous note: Pt visited in his room. Pt refuses diet education for pre-diabetes. Objective - Diagnosis Unspecified Psychosis - Indications of Malnutrition Characteristics: Weight loss - Objective [place] body weight: 81 kg % IBW: 64 Body Weight Used for Calculations: Actual (85.6kg) Energy Needs - Lower Range (kCal/kg): 35 Energy Needs - Upper Range (kCal/kg): 40 Lower Limit kCal/kg (kCals): 2,240 Upper Limit kCal/kg (kCals): 2,560 Lower Limit Protein Factor (Grams per Kg): 1.4 Upper Limit Protein Factor (Grams per Kg): 1.8 Lower Protein Needs (Protein): 90 Upper Protein Needs (Protein): 115 Fluid Factor (ml/kg): 35 Estimated Fluid Needs (ml): 2,240 Dietitian Reviewed in Medical Record: Current diet, Curent medications, Intake & Output, Labs, Medical history, Wound/DTI (Lower Extremity Edema; 01/13 [facility] note-see note in EMR) Diet Order: 0 Oral Diet Intake Amount: Fair 50-75% Objective Comments: PMH Includes: Cataracts, Fungal Infecton, Lower Extremity Edema A1C 6.4, POC Glucose 136(02/15) Meds Include: Lasix, Haldol, Ativan, Seroquel, Aldactone, Metolazone, Lactinex +C-Diff Feeding - Current PO Supplement Current Supplement: Glucerna Shake Current Frequency of Supplement: Three times a day Current kCals Provided by Supplement: 220 Current Protein Provided by Supplement: 10 Assessment Assessment: Pt continues at nutritional risk r/t poor po intake. Calorie Count 02/06 through 02/09 w/Inadequate po intake. Pt w/documented significant wt loss, 24.8kg(55-lb)since admission. Noted pt is receiving diuretics. Rec diet be liberalized to a Regular No Sugar No Concentrated Sweets to allow for additional menu options and assist w/increased po intake. Continue Glucerna Shakes TID. Continue to honor food preferences. Rec an appetite stimulant, if medically appropriate. Consider alternative method of nutrition for this pt if consistent w/goals of care. Brought forward from previous note: MDC for diet education-Pt is currently not appropriate and not receptive to diet education for diabetes at this time. Labs , wts and clinical course reviewed. Recommendations: 1. Calorie Count 02/06 through 02/09 w/Inadequate po intake 2. Pt w/documented significant wt loss, 24.8kg(55-lb)since admission-oted pt is receiving diuretics 3. Rec diet be liberalized to a Regular No Sugar No Concentrated Sweets to allow for additional menu options and assist w/ increased po intake 4. Continue Glucerna Shakes TID 5. Continue to honor food preferences 6. Rec an appetite stimulant, if medically appropriate 7. Rec an alternative method of nutrition if consistent w/goals of care 8. Brought forward from previous note: MDC for diet education-Pt is currently not appropriate and not receptive to diet education for diabetes at this time Dietitian to Monitor: Lab values, Glucose level, Supplement acceptance, Intake & Output, Weight change, PO Intake, Medical course
[2018-02-18] MEDS: Senna/Docusate Sodium 8.6/50 MG Tablet PO SCH ×2 (08:06→21:09)
[2018-02-18] MEDS: Lactic Acid (Ammonium Lactate) 12% Lotion 225 GM Bottle TOPICAL SCH ×2 (08:57→21:08)
[2018-02-18] MEDS: Lactobacillus Acidophilus/L. Spores Tablet PO SCH ×3 (08:58→17:38)
[2018-02-18] MEDS: Furosemide 20 MG Tablet PO SCH (08:58)
[2018-02-18] MEDS: Spironolactone 25 MG Tablet PO SCH (08:58)
--- NOTE | 2018-02-18 14:41 | P.PNPSY ---
Subjective Remarks: Patient seen for follow-up, chart reviewed. Discussion with nursing staff reported that patient patient continues to believe that he is leaving the hospital every day noted to have sialorrhea since yesterday. Patient was found sitting in hospital bed noted B, cooperative. Patient has been more pleasant and engaging interview with fiction writer no longer noted to be irritable and having more an extended conversation today. Patient states that he is feeling well denying any physical complaints at this time although his aware that he was having some more drooling on the left side of his mouth no focal or gross neurological deficits noted. Patient also noted to be somewhat somnolent during interview. Patient continues to state hearing God's voice but aware that he is leaving the hospital soon and positive things denying any negative comments from God. Review of Systems All other systems reviewed negative except as stated in HPI Mental Status Examination Appearance: Appropriate Consciousness: Alert Orientation: Person, Place Motor Activity: Other (No abnormal motor movements noted.) Speech: Unremarkable Language: Adequate Fund of Knowledge: Adequate Attention and Concentration: Adequate Memory: Impaired (Suspected) Mood: Appropriate Affect: Appropriate Thought Process & Associations: Linear Thought Content: Delusional (Minimal) Hallucination Type: Auditory (God's voice but minimal) Delusion Type: Paranoid (Minimal) Suicidal Ideation: No Suicidal Plan: No Suicidal Intention: No Homicidal Ideation: No Homicidal Plan: No Homicidal Intention: No Insight: Fair Judgment: Impulsive Assessment and Plan - Assessment (1) Unspecified psychosis Code(s): F29 - Unspecified psychosis not due to a substance or known physiological condition Status: Acute - Plan Plan: Patient continues with auditory hallucinations of God's voice but minimal now only stating positive comments such as that he will be leaving today. Patient no longer noted to be irritable has a compliant pleasant with staff. Patient denying physical complaints. We will attempt to have patient ambulate more out of the unit to avoid deconditioning in the context of patient needing to remain in isolation due to contact precautions which patient will be using personal safety equipment, for this. We will decrease morning dose of quetiapine to 150 mg daily and continue 200 mg p.o. at bedtime for psychosis S patient likely having sialorrhea and daytime sedation secondary to dose amount in the a.m. We will continue to monitor mood and behavior. Discharge planning a progress. Justification for Continued Inpatient Stay: At risk of further decompensation at lower level care.
[2018-02-19] MEDS: Lactic Acid (Ammonium Lactate) 12% Lotion 225 GM Bottle TOPICAL SCH ×2 (08:56→21:06)
[2018-02-19] MEDS: Lactobacillus Acidophilus/L. Spores Tablet PO SCH ×3 (08:56→18:11)
[2018-02-19] MEDS: Spironolactone 25 MG Tablet PO SCH (08:56)
[2018-02-19] MEDS: QUEtiapine 100 MG Tablet PO SCH (08:56)
[2018-02-19] MEDS: Furosemide 20 MG Tablet PO SCH (08:56)
[2018-02-19] MEDS: Senna/Docusate Sodium 8.6/50 MG Tablet PO SCH ×2 (08:57→21:06)
--- NOTE | 2018-02-19 16:01 | P.TTN ---
- Patient Problems Problems: 1. Discharge planning 2. Medication compliance 3. Knowledge deficit 4. Lack of coping skills - Progress Toward Goals Provider Present: Dr. Lluvia Calle, Dr. Suad Saavedra (no med adjustment) Provider Input: 02/18/2018; per doctor no medication change at this time; stable and able to be dc to appropriate placement. 02/11/2018 Doctor is monitoring changes in pharmacotherapy for improved mood and behavior. 2017; per doctor patient's medication are being adjusted to address his mood/ behavior. 02/04/2018; per doctor patient is noncompliant with medication; meds are being adjusted to address pt's mood and aggressive behavior. 01/28: Pt is compliant with medications, currently on isolation (C-Diff), exploring discharge options, d/c date dependent on medical clearance. 01/26/18: Pt psychiatric dosages continue to be titrated. Pt continues to report that others (family and staff) are "devils", pt continues with religiously. based ideations. Family is currently advising placement for pt. 01/21/18: psychiatric meds undergoing titration based on pt needs. Dr. Saavedra to review notes and meet with patient. Nurse(s) Present: RN Nurse Input: 02/18/2018; per RN no behavior issues, compliant with treatment. 02/11/2018 patient states God is going to release him in 9 days. He continues dismissive behavior. 02/09/2018; per RN patient's mood is somewhat lifted, less agitation with no signs of aggression, require redirection with inappropriate thoughts. Pt is eating and taking meds. 02/04/2018; per RN patient requires ETO's due to agitated and aggressive mood. Pt is eating meals and at times compliant with medication Psychiatric Counselors Present: Sanrda Cotton LCSW, Jose J Busch Jr., [facility], Na Yeager [facility] (counselor to continue to look for safe discharge option) Psychiatric Therapist Input: 02/18/2018; counselor will contact family regarding [facility] status to ensure appropriate and safe dc. Coninuing to work with family and exhausting all possibilities for placement. 02/09/2018; DC train planner continues to explore appropriate placement in an [facility] setting, patient has been denied at most [facility] thus far. Patient is encouraged with appropriate behavior. 02/04/2018; Counselor will continue exploring appropriate placement options; patient is unable to return to the home of family and has limited income with no medicare and only medicaid share of cost. 01/26/18: Pt is not regularly seen by Jose J, OTR (Richie) has limited contact with pt. Pt is on isolation precautions, placement presents as challenging. 01/21/18: Pt's family are on record as unable to care for pt. Placement is being considered per pt financial, behavioral/cognitive and insurance considerations. 01/12/18: Pt has not been assessed by counselor as yet. Group Spec/RT/OT/CHUNG Present: Renetta Clarke, KOBY, Richie Mccall, OT, JULIET Cutler (pt. is still on isolation) Group Spec/RT/OT/CHUNG Input: 02/18/2018; patient has been unable to attend groups or activities. 02/09/2018 patient has been unable to attend groups and activities. 02/04/2018; per OT patient is resisted with group and activity participation. 01/28: pt on isolation, unable to attend groups. 01/21/18: Pt is unable to tolerate group intactions. He is unable to participate based on his level of cognition. New pt; no hx as yet. Clinical Coordinator Input: 01/28: Multiple pt packets had been send out previously, new packets to be sent dianna pending medical clearance. Other Clinican Input: 01/21/18: Counselor seeking appropriate placement based on pt finances, insurance and medical/psych needs. Additional Input: 01/28: Pt is compliant with medications, currently on isolation (C-Diff), exploring discharge options, d/c date dependent on medical clearance. 01/26/18: Pt is a placement challenge, pt is currently meeting psychiatric criteria. Pt's family is concerned and advising pt placement vs home. - Documentation Scribe: Richie Mccall MS, OTR Teaching Recipient: Patient
--- NOTE | 2018-02-19 16:10 | P.PNPSY ---
Subjective Remarks: Reviewed electronic medical records and discussed case with staff. Patient seen in room. Staff reports that he is being discharged tomorrow. Patient states that he is happy with this plan. When asked how he feels he reports "I'm siva ". He reports that he has been sleeping and eating well. He has no complaints at this time. Mental Status Examination Appearance: Appropriate Consciousness: Alert Orientation: Person, Place Motor Activity: Other (No abnormal motor movements noted.) Speech: Unremarkable Language: Adequate Fund of Knowledge: Adequate Attention and Concentration: Adequate Memory: Impaired (Suspected) Mood: Appropriate Affect: Appropriate Thought Process & Associations: Linear Thought Content: Delusional (Minimal) Hallucination Type: Auditory (God's voice but minimal) Delusion Type: Paranoid (Minimal) Suicidal Ideation: No Suicidal Plan: No Suicidal Intention: No Homicidal Ideation: No Homicidal Plan: No Homicidal Intention: No Insight: Fair Judgment: Impulsive Assessment and Plan - Assessment (1) Unspecified psychosis Code(s): F29 - Unspecified psychosis not due to a substance or known physiological condition Status: Acute - Plan Plan: Patient to be discharged tomorrow. Justification for Continued Inpatient Stay: Patient to be discharged tomorrow to an appropriate level of care.
--- NOTE | 2018-02-19 16:15 | P.DCO ---
- Physical Therapy Order: Evaluate and treat - Home Health Nursing Order: Medication education-adverse effect, Nursing assessment with vital signs - Case Management Consult No - Certification I have seen patient Salas Richard on 02/19/18. My clinical findings support the need for the requested home health care services because: Medication compliance is questionable, Limited ability to care for self, Impaired cognition/judgement I certify that my clinical findings support that this patient is homebound because: Impaired cognitive ability/safety, Unsteady gait/balance
[2018-02-20 05:22] VITALS: BP 122/61; PULSE 72; RESP 17; TEMP 99.6; O2SAT 97
[2018-02-20] MEDS: Furosemide 20 MG Tablet PO SCH (09:23)
[2018-02-20] MEDS: QUEtiapine 100 MG Tablet PO SCH (09:23)
[2018-02-20] MEDS: Lactobacillus Acidophilus/L. Spores Tablet PO SCH (09:23)
[2018-02-20] MEDS: Spironolactone 25 MG Tablet PO SCH (09:23)
[2018-02-20] MEDS: Lactic Acid (Ammonium Lactate) 12% Lotion 225 GM Bottle TOPICAL SCH (09:25)
[2018-02-20] MEDS: Senna/Docusate Sodium 8.6/50 MG Tablet PO SCH (09:25)
--- NOTE | 2018-02-20 16:12 | P.DSPSY ---
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 According the [place], the patient has been having delusional thoughts, talking to God. He also has apparently been refusing treatment for his swollen legs and not allowing his daughter to let him have care. He fell approximately 6 times yesterday and laid on the ground for approximately 2 hours until his daughter got home. According the [place] act, he defecated on the ground today as well. He also has been walking around the house without any pants or underwear on. He has a very extensive initial ER medical clearance, most of findings are quite normal with the exception of lower extremity cellulitis. He has a brain and spine CT with Moderate to severe degenerative changes are noted without evidence for acute fracture. Negative CT Head non contrast. Abdomen/Pelvis CT 01/10/18 14:55. Cirrhosis and portal hypertension. Extensive atherosclerosis. Chart was reviewed. The case was widely discussed with ER staff. On my psychiatric evaluation I find a patient that is calm, cooperative, but extremely malodorous and disheveled.. The patient reports that he feels quite well, he denies pain, denies distress, he reports good mood, and states that the only reason he is here is because his daughter interrupted in his house, "she thinks that she can take decisions for me", and placing on the Burton act for delusional thinking and self neglecting behavior. The patient reports that he has never seen a psychiatrist in his life. He was a photocopying equipment mechanic in the state [facility] and never had any problem with anybody. He denies symptomatology of depression, denies anhedonia, denies hopelessness, denies helplessness, he denies suicidal and homicidal ideation, he denies visual and auditory hallucinations at the moment. The patient is fully oriented 3, logical, coherent, relevant. During my evaluation I could not elicit any delusional thinking, no paranoia, no loosening of associations, no ideas of reference. However, in a conversation with his daughter and ER doctor, she says that the patient has been making irrational comments of people around his house and also homicidal statements of killing people around him with his legal guns. 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 According the Micheal, the patient has been having delusional thoughts, talking to God. He also has apparently been refusing treatment for his swollen legs and not allowing his daughter to let him have care. Patient was admitted to a locked, inpatient psychiatric unit. Appropriate precautions were in place throughout patient's hospital stay. Patient was seen and examined on the unit by psychiatry. Psychotropic medications were adjusted. There was no evidence of any suicidality or homicidality on the inpatient unit. Patient was noted to be irritable, belligerent with staff and with family along with sabianist preoccupation and delusions while endorsing auditory hallucinations from God. Patient's mood and psychotic symptoms improved with the benefit of psychopharmacological treatment and had no behavioral disturbance since admission. Patient was noted to have reached stable mood, noted to participate and engage in treatment and interact with staff adequately. Patient noted to be future oriented with plans to continue treatment and outpatient follow-up appointments for continuity of care. Counselor has arranged discharge plan with his family which patient would be discharged to residential facility. On the day of discharge: Patient seen and examined; chart reviewed. Case discussed with nurse and counselor. No behavioral issues overnight. On my examination today, the patient denies any suicidal homicidal ideation, intent or plan on direct questioning and contracts for safety. Patient denies any perceptional disturbances and no delusional material verbalized today. Patient denies any side effects from medication and has understanding of medication regimen and education. No physical complaints. Suicide and violence risk assessment on day of discharge both suggest lower imminent risk, and the patient's level of function is adequate for plan level of outpatient care. Patient has maximized benefit from this inpatient psychiatric hospital stay and will be discharged with discharge plan as arranged by counselor. Patient advised to return to psychiatric emergency room for any concerning psychiatric symptoms. Patient agrees with plan. - Discharge Discharge Date: 02/20/18 - Discharge Diagnosis (1) Unspecified psychosis Code(s): F29 - Unspecified psychosis not due to a substance or known physiological condition Status: Acute Discharge Disposition: Assisted Living Facility - Discharge Instructions Discharge Diet: Heart Healthy Diet Activities You Can Perform: Weight Bearing As Tolerat - Discharge Time > 30 minutes Mental Status Examination Appearance: Appropriate Consciousness: Alert Orientation: Person, Place Motor Activity: Other (No abnormal motor movements noted.) Speech: Unremarkable Language: Adequate Fund of Knowledge: Adequate Attention and Concentration: Adequate Memory: Impaired (Suspected) Mood: Appropriate Affect: Appropriate Thought Process & Associations: Intact, Linear Thought Content: Appropriate Hallucination Type: None Delusion Type: None Suicidal Ideation: No Suicidal Plan: No Suicidal Intention: No Homicidal Ideation: No Homicidal Plan: No Homicidal Intention: No Insight: Fair Judgment: Impulsive Discharge/Advance Care Plan - Results Vital Signs: Last Vital Signs Temp 99.6 F 02/20/18 05:21 Pulse 72 02/20/18 05:21 Resp 17 02/20/18 05:21 BP 122/61 02/20/18 05:21 Pulse Ox 97 02/20/18 05:21 Lab Results: Laboratory Results Hemoglobin A1c 6.4 % (4.3-6.0) H 01/12/18 06:52 Triglycerides 90 mg/dL (42-150) 01/12/18 06:52 Cholesterol 103 mg/dL (120-200) L 01/12/18 06:52 LDL Cholesterol, Calc 51 mg/dL (0-99) 01/12/18 06:52 HDL Cholesterol 33.9 mg/dL (40.0-60.0) L 01/12/18 06:52 TSH 5.820 uIU/mL (0.358-3.740) H 01/10/18 14:30 Free T4 1.36 ng/dL (0.76-1.46) 01/13/18 06:40 Urine Culture Comments Culture not ind 01/10/18 18:19 Summary of Procedures: none Imaging: ITS Impressions Cervical Spine CT 01/10/18 14:27 CONCLUSION: 1. Moderate to severe degenerative changes are noted without evidence for acute fracture. Head CT 01/10/18 14:27 CONCLUSION: 1. Negative CT Head non contrast. . Abdomen/Pelvis CT 01/10/18 14:55 CONCLUSION: 1. Cirrhosis and portal hypertension. 2. Extensive atherosclerosis. Chest X-Ray 01/10/18 14:55 CONCLUSION: Negative examination. Venous Doppler Study 01/10/18 15:13 CONCLUSION: 1. The study is negative for bilateral lower extremity deep venous thrombosis. Liver Ultrasound 01/13/18 00:00 CONCLUSION: 1. No definite gallstones in the gallbladder. There is diffuse thickening of the gallbladder wall at 6 mm. 2. Mild dilatation of the common bile duct at 8 mm. MRCP could be performed for further evaluation if clinically indicated. 3. Small amount of abdominal ascites in the upper abdomen. Shoulder X-Ray 02/16/18 04:02 CONCLUSION: Intact right shoulder. Hip X-Ray 02/16/18 04:05 CONCLUSION: No evidence of fracture or subluxation of the right hip. Pending Results: None - Medications Number of antipsychotic medications at discharge: 1 - Discharge Care Plan Goals to Promote Your Health: * To prevent worsening of your condition and complications * To maintain your health at the optimal level Directions to Meet Your Goals: Take your medications as prescribed Follow your dietary instruction Follow activity as directed Keep your appointments as scheduled Take your immunizations and boosters as scheduled If your symptoms worsen call your PCP, if no PCP go to Urgent Care Center or Emergency Room For 11/11 questions related to your inpatient stay or results of tests pending at discharge, please contact Dr. Rosalio Saavedra MD at Smoking is Dangerous to Your Health. Avoid second hand smoking
== END 2018-02-20 10:15 ==
LOC: NEPE 14:00 → NEDA 01-11 11:46 → H4EA 01-11 13:56 → HCPC 01-14 17:43 → H4EA 01-14 17:44 → HCPC 02-16 08:58 → H4EA 02-16 09:01
PROVIDERS: ADMIT Student in an Organized Health Care Education/Training Program; ATTEND Student in an Organized Health Care Education/Training Program